=== PATIENT | female | born 1945 | race Caucasian/White ===

== ENCOUNTER → 2017-08-31 | Outpatient (CLI) | payer OTHER ==
[~2017-08-31] MED LIST: ANEXSIA 7.5/321 EACH; CLONIDINE HCL0.1 MG PO; Calcium Carbonate PO; Divalproex Sodium PO; LOPRESSOR25 MG PO; LOSARTAN POTAS100 MG PO; METOPROLOL TAR100 MG PO; PEPCID20 MG PO; PLAVIX75 MG PO; RISPERDAL0.5 MG PO; SENOKOT8.6 MG PO; TEMAZEPAM15 MG PO; TYLENOL WITH C1 EACH PO; Z.0.AMBIEN5 MG; Z.0.METOPROLOL TAR10 PO; Z.0.SOMA350 MG
== END ==
LOC: NPA 13:00
PROVIDERS: ATTEND Internal Medicine
DX: R69 Illness, unspecified (principal)

== ENCOUNTER 2017-09-25 09:34 | Emergency (ER) | payer MEDICARE ==
[~2017-09-25] VITALS: Ht 170.2 cm; Wt 90.7 kg
--- NOTE | 2017-09-25 11:15 | Diagnostic Imaging Report ---
PROCEDURE: X-RAY CHEST, TWO VIEWS COMPARISON: Patients [facility], DX, CHEST 2 VIEWS, 07/18/2017, 8:20. INDICATIONS: CHEST PAIN FINDINGS: LUNGS: No consolidations or edema. PLEURA: No effusions or pneumothorax. HEART \T\ MEDIASTINUM: The heart is within normal size-limits. Ascending thoracic aortic aneurysm appears enlarged compared to the prior chest radiograph now measuring 6.64 cm (1 cm larger). BONES \T\ SOFT TISSUES: No acute findings. CONCLUSION: Enlargement of the thoracic aortic aneurysm. Ricky Dove D.O. Dictated by: Rciky Dove D.O. on 09/25/2017 at 11:24 Electronically approved by: Ricky Dove D.O. on 09/25/2017 at 11:24
[2017-09-25] MEDS ORDERED: ONDANSETRON HCL INJ 2 MG/ML VIAL IV STA ×2 (12:41→12:43)
[2017-09-25] MEDS ORDERED: MORPHINE SULFATE 4 MG/ML SYR IV PRN (12:45)
[2017-09-25 12:51] LABS: BASOPHILS # (AUTO) 0.1 (0.0-0.1); BASOPHILS % 0.9 % (0.0-1.0); EOSINOPHILS # (AUTO) 0.2 (0.0-0.4); HEMATOCRIT 37.3 % (34.2-44.1); HEMOGLOBIN 11.9 g/dL (12.0-16.0); LYMPHOCYTES # (AUTO) 2.2 (1.0-3.2); LYMPHOCYTES % 28.6 % (18.0-39.1); MEAN CORPUSCULAR HEMOGLOBIN 31.2 pg (28-32); MEAN CORPUSCULAR HGB CONC 31.9 g/dL (31-35); MEAN CORPUSCULAR VOLUME 97.6 fL (81-99); MONOCYTES # (AUTO) 0.7 (0.2-0.8); MONOCYTES % 9.5 % (4.4-11.3); NEUTROPHILS # (AUTO) 4.5 (2.1-6.9); NEUTROPHILS % 58.7 % (38.7-80.0); PLATELET COUNT 310 x10e3/uL (140-360); RED BLOOD COUNT 3.82 x10e6/uL (3.6-5.1); RED CELL DISTRIBUTION WIDTH 15.2 % (11.7-14.4)
[2017-09-25 13:06] LABS: INR 1.02; PROTHROMBIN TIME 13.9 seconds (11.9-14.5)
[2017-09-25 13:07] LABS: PARTIAL THROMBOPLASTIN TIME 42.3 seconds (23.8-35.5)
[2017-09-25 13:13] LABS: ALBUMIN 3.4 g/dL (3.5-5.0); ALBUMIN/GLOBULIN RATIO 0.7 (0.8-2.0); ANION GAP 16.7 mmol/L (8-16); CALCIUM 9.5 mg/dL (8.4-10.2); CREATININE, SERUM 1.12 mg/dL (0.57-1.11); POTASSIUM 3.7 mmol/L (3.5-5.1)
[2017-09-25 13:19] LABS: CREATINE KINASE MB 0.6 ng/mL (0.00-5.00); TROPONIN I 0.046 ng/mL (0-0.300)
--- NOTE | 2017-09-25 15:01 | Diagnostic Imaging Report ---
EXAM: CT Chest, Abdomen and Pelvis WITHOUT contrast INDICATION: Chest and back pain. Thoracic aortic dissection and prior scan. COMPARISON: CT chest dated July 12, 2017, and CT abdomen dated 01/18/2015. TECHNIQUE: Chest, abdomen and pelvis were scanned utilizing a multidetector helical scanner from the lung apex to the pubic symphysis without administration of IV contrast. Absence of intravenous contrast decreases sensitivity for detection of focal lesions and vascular pathology. Coronal and sagittal reformations were obtained. Routine protocol was performed. IV CONTRAST: None. ORAL CONTRAST: Water RADIATION DOSE: Total DLP: 779.48 mGy*cm Estimated effective dose: (DLP x 0.015 x size factor) mSv COMPLICATIONS: None FINDINGS: LINES and TUBES: None. LUNGS AND AIRWAYS: Biapical pleural-parenchymal scarring. Bibasilar pleural-parenchymal scarring and/or subsegmental atelectasis. No focal consolidation. Airways are normal. PLEURA: The pleural spaces are clear. HEART AND MEDIASTINUM: Evaluation limited due to the lack of contrast. Atherosclerotic calcifications of the entire thoracic aorta. Redemonstration of fusiform aneurysmal dilatation of the aortic arch measuring up to 5.5 cm in maximal dimension on image 19 series 2, previously 5.3 cm at a similar level. Previously described intramural hematoma not well evaluated due to the lack of contrast, however, less distinct than on prior examination with improvement of periaortic fat stranding. There is also fusiform aneurysmal dilatation of the descending thoracic aorta diffusely, measuring up to 4.7 x 4.6 cm on image 37 series 2. Multivessel coronary artery calcifications. There is no pericardial effusion. HEPATOBILIARY: No focal hepatic lesions. Intra and extrahepatic biliary dilatation suggestive of reservoir effect. GALLBLADDER: Status post cholecystectomy. SPLEEN: No splenomegaly. PANCREAS: No focal masses or ductal dilatation. ADRENALS: No adrenal nodules KIDNEYS/URETERS: No hydronephrosis. 2.9 cm cyst in the posterior interpolar region of the left kidney on image 65 series 2. No stones. GI TRACT: No abnormal distention, wall thickening, or evidence of bowel obstruction. Colonic diverticulosis without diverticulitis. Appendix is normal. PELVIC ORGANS/BLADDER: Unremarkable. LYMPH NODES: No lymphadenopathy. VESSELS: Tortuous abdominal aorta, with fusiform dilatation of the juxtarenal aorta measuring up to 3.7 cm on image 74 series 2. Mild anterior wedge compression deformity of L1. PERITONEUM / RETROPERITONEUM: No free air or fluid. BONES: Postsurgical changes of decompressive laminectomy from L2 through S1 again observed. Again observed. SOFT TISSUES: Unremarkable. IMPRESSION: 1. Mild interval increase in fusiform aneurysmal dilatation of the aortic arch and descending thoracic aorta, with intramural hematoma/dissection in the aortic arch is not well evaluated due to the lack of contrast. 2. Unchanged tortuous abdominal aorta with mild fusiform dilatation. 3. Colonic diverticulosis without acute diverticulitis. Signed by: Dr. Josey Huertas M.D. on 09/25/2017 2:57 PM
[2017-09-25] MEDS ORDERED: KETOROLAC TROMETHAMINE 30 MG/ML VIAL IV STA (19:05)
[2017-09-25] MEDS ORDERED: MORPHINE SULFATE 4 MG/ML SYR IV ONE (19:30)
== END 2017-09-25 22:35 | disposition home or self-care (01) ==
LOC: ER 09:41
DX: M54.5 Low back pain (principal); S39.012A Strain of muscle, fascia and tendon of lower back, initial encounter; G89.29 Other chronic pain; I10 Essential (primary) hypertension; E11.9 Type 2 diabetes mellitus without complications; I25.10 Atherosclerotic heart disease of native coronary artery without angina pectoris
CPT/HCPCS: 36415; 71020; 71250; 74150; 80053; 82550; 82553; 83880; 84484; 85025; 85610; 85730; 86850; 86900; 93005; 96374; 96375; 99284; J1885; J2270; J2405

== ENCOUNTER 2018-03-22 12:57 | Inpatient (IN) | payer MEDICARE, BC ==
[~2018-03-22] VITALS: Ht 170.2 cm; Wt 90.7 kg
[2018-03-22] MEDS ORDERED: SODIUM CHLORIDE 0.9% 500ML 500 ML IV STA (13:23)
[2018-03-22] MEDS ORDERED: LEVOFLOXACIN 750MG/D5W 150ML 150 ML IV ONE (13:30)
[2018-03-22] MEDS ORDERED: ALBUTEROL/IPRATROPIUM 3 ML NEB NEB ONE (13:30)
[2018-03-22] MEDS ORDERED: ACETAMINOPHEN 325 MG TAB PO PRN ×2 (13:30→14:45)
[2018-03-22] MEDS ORDERED: METHYLPREDNISOLONE SOD SUCC 125 MG/2ML VIAL IV ONE (13:30)
[2018-03-22] MEDS ORDERED: FAMOTIDINE 20 MG/2 ML VIAL IV ONE (13:30)
[2018-03-22] MEDS ORDERED: IBUPROFEN 400 MG TAB PO PRN (13:30)
[2018-03-22] MEDS ORDERED: ONDANSETRON HCL INJ 2 MG/ML VIAL IV PRN ×4 (13:30→17:15)
[2018-03-22 13:55] LABS: BASOPHILS # (AUTO) 0.1 (0.0-0.1); BASOPHILS % 1.1 % (0.0-1.0); EOSINOPHILS # (AUTO) 0.2 (0.0-0.4); EOSINOPHILS % 1.7 % (0.0-6.0); HEMATOCRIT 34.4 % (34.2-44.1); HEMOGLOBIN 11.5 g/dL (12.0-16.0); LYMPHOCYTES # (AUTO) 1.5 (1.0-3.2); MEAN CORPUSCULAR HEMOGLOBIN 31.3 pg (28-32); MEAN CORPUSCULAR HGB CONC 33.4 g/dL (31-35); MEAN CORPUSCULAR VOLUME 93.7 fL (81-99); MONOCYTES # (AUTO) 0.8 (0.2-0.8); MONOCYTES % 7.6 % (4.4-11.3); NEUTROPHILS # (AUTO) 7.4 (2.1-6.9); NEUTROPHILS % 74.3 % (38.7-80.0); PLATELET COUNT 214 x10e3/uL (140-360); RED BLOOD COUNT 3.67 x10e6/uL (3.6-5.1)
[2018-03-22] MEDS ORDERED: ENALAPRILAT IV INJ 1.25 MG/ML VIAL IV ONE (14:00)
--- NOTE | 2018-03-22 14:03 | Diagnostic Imaging Report ---
EXAMINATION: CHEST SINGLE (PORTABLE) INDICATION: Shortness of breath. Concern for pneumonia. COMPARISON: None FINDINGS: TUBES and LINES: None. LUNGS: Left lung base suggestive of subsegmental atelectasis. There is no evidence of pneumonia or pulmonary edema. PLEURA: No pleural effusion or pneumothorax. HEART AND MEDIASTINUM: The cardiac silhouette is mildly enlarged. The thoracic aorta is tortuous and diffusely dilated. BONES AND SOFT TISSUES: No acute osseous lesion. UPPER ABDOMEN: No free air under the diaphragm. IMPRESSION: 1. Patchy density in the left lung base suggestive of atelectasis. However, developing pneumonia is not excluded in the proper clinical setting.. Suggest chest PA and lateral views when patient's condition permits. 2. Diffusely aneurysmal dilated thoracic aorta better evaluated on prior CT examinations. Signed by: Dr. Josey Huertas M.D. on 03/22/2018 1:59 PM
[2018-03-22 14:18] LABS: ALBUMIN 3.4 g/dL (3.5-5.0); ALBUMIN/GLOBULIN RATIO 0.9 (0.8-2.0); ALKALINE PHOSPHATASE 76 IU/L (40-150); ANION GAP 15.9 mmol/L (8-16); BLOOD UREA NITROGEN 10 mg/dL (7-26); BUN/CREATININE RATIO 11 (6-25); CARBON DIOXIDE 19 mmol/L (22-29); CHLORIDE 104 mmol/L (98-107); CREATINE KINASE 56 IU/L (29-168); CREATININE, SERUM 0.87 mg/dL (0.57-1.11); EST GLOMERULAR FILTRATION RATE > 60 ML/MIN (60-); GLUCOSE 107 mg/dL (74-118); MAGNESIUM 1.7 MG/DL (1.3-2.1); POTASSIUM 3.9 mmol/L (3.5-5.1); SODIUM 135 mmol/L (136-145)
[2018-03-22 14:21] LABS: ALANINE AMINOTRANSFERASE < 6 IU/L (0-55)
[2018-03-22] MEDS ORDERED: CLONIDINE HCL 0.1 MG TAB PO PRN (14:45)
[2018-03-22] MEDS ORDERED: ENALAPRILAT IV INJ 1.25 MG/ML VIAL IV PRN (14:45)
[2018-03-22] MEDS ORDERED: ONDANSETRON HCL 4 MG ORAL DISINTEGRATING TAB PO PRN (14:45)
[2018-03-22] MEDS ORDERED: DIPHENHYDRAMINE HCL 25 MG CAP PO PRN (14:45)
[2018-03-22] MEDS: HYDROCODONE/APAP 7.5MG-325MG 1 EA TAB PO PRN ×2 (15:20→22:10)
[2018-03-22] MEDS ORDERED: ACETAMINOPHEN/CODEINE 300MG - 30MG TAB PO PRN (15:45)
[2018-03-22] MEDS: HYDROMORPHONE 2MG/ML 2 MG/ML ML IV PRN ×2 (15:56→21:18)
[2018-03-22 16:45] VITALS: BP 165/87
[2018-03-22] MEDS: FUROSEMIDE INJ 10 MG/ML 4 ML VIAL IV SCH (17:00)
[2018-03-22] MEDS: CARVEDILOL 3.125 MG TAB PO SCH (17:00)
[2018-03-22] MEDS ORDERED: PROMETHAZINE 25MG/ NS 50ML (IV) IV PRN (17:15)
[2018-03-22 17:42] VITALS: BP 165/87
[2018-03-22] MEDS: ALBUTEROL/IPRATROPIUM 3 ML NEB NEB SCH (19:00)
[2018-03-22 20:00] VITALS: BP 124/83
[2018-03-22] MEDS: BENZONATATE 100 MG CAP PO SCH (21:15)
[2018-03-22 21:28] VITALS: BP 124/83
[2018-03-22] MEDS: ONDANSETRON HCL INJ 2 MG/ML VIAL IV PRN (22:00)
--- NOTE | 2018-03-22 23:09 | Diagnostic Imaging Report ---
EXAM: ABDOMEN-1VIEW (KUB) DATE: 03/22/2018 9:06 PM Time stamp on exam: 2202 hours INDICATION: Nausea. COMPARISON: None FINDINGS: LINES/TUBES: None BOWEL PATTERN: No evidence for obstruction. SOFT TISSUES: Right upper quadrant cholecystectomy clips. Extensive atherosclerotic calcifications of the abdominal aorta and branches. LUNG BASES: Not included BONES: Extensive degenerative changes and postsurgical fusion status post laminectomy at L4 and L5 IMPRESSION: Nonobstructive bowel gas pattern. Signed by: Dr. Luis Bay M.D. on 03/22/2018 11:06 PM
[2018-03-22] MEDS ORDERED: DEXTROSE 5%/0.9% SOD CHL 1,000 ML IV ONE (23:30)
[2018-03-22 23:31] LABS: AMYLASE 71 U/L (25-125); LIPASE 6 U/L (8-78)
[2018-03-23] VITALS (7 sets, daily range): BP systolic 112–145; BP diastolic 63–90
[2018-03-23] LABS: CREATINE KINASE MB 1.7 ng/mL (0-5.0)
[2018-03-23] MEDS: ALBUTEROL/IPRATROPIUM 3 ML NEB NEB SCH ×4 (00:37→18:42)
--- NOTE | 2018-03-23 02:24 | Diagnostic Imaging Report ---
EXAMINATION: CHEST XRAY LINE PLACEMENT INDICATION: Shortness of breath. Concern for pneumonia. COMPARISON: 09/25/2017 FINDINGS: TUBES and LINES: Right upper extremity PICC line with tip at the level of the atrial caval junction. LUNGS: Left lung base suggestive of subsegmental atelectasis. There is mild prominence of the central pulmonary vasculature, consistent with pulmonary venous congestion. PLEURA: No pleural effusion or pneumothorax. HEART AND MEDIASTINUM: Cardiac size is moderately enlarged. The aortic arch is severely enlarged in keeping with known ectasia/aneurysm of the aorta BONES AND SOFT TISSUES: No acute osseous lesion. UPPER ABDOMEN: No free air under the diaphragm. IMPRESSION: 1. Patchy density in the left lung base suggestive of atelectasis. However, developing pneumonia is not excluded in the proper clinical setting. 2. Diffusely dilated thoracic aorta better evaluated on prior CT examinations. Signed by: Dr. Luis Bay M.D. on 03/23/2018 2:21 AM
[2018-03-23 05:26] LABS: BASOPHILS % 0.3 % (0.0-1.0); HEMATOCRIT 36.1 % (34.2-44.1); HEMOGLOBIN 11.3 g/dL (12.0-16.0); LYMPHOCYTES # (AUTO) 0.7 (1.0-3.2); LYMPHOCYTES % 9.9 % (18.0-39.1); MEAN CORPUSCULAR HEMOGLOBIN 30.5 pg (28-32); MEAN CORPUSCULAR HGB CONC 31.3 g/dL (31-35); MEAN CORPUSCULAR VOLUME 97.3 fL (81-99); MONOCYTES # (AUTO) 0.2 (0.2-0.8); MONOCYTES % 2.3 % (4.4-11.3); NEUTROPHILS # (AUTO) 6.5 (2.1-6.9); NEUTROPHILS % 86.8 % (38.7-80.0); PLATELET COUNT 220 x10e3/uL (140-360); RED BLOOD COUNT 3.71 x10e6/uL (3.6-5.1); RED CELL DISTRIBUTION WIDTH 14.9 % (11.7-14.4)
[2018-03-23] MEDS: HYDROMORPHONE 2MG/ML 2 MG/ML ML IV PRN ×3 (05:37→17:39)
[2018-03-23 06:04] LABS: CREATINE KINASE MB 1.7 ng/mL (0-5.0)
[2018-03-23 06:34] LABS: ANION GAP 14.5 mmol/L (8-16); CALCIUM 9.2 mg/dL (8.4-10.2); CREATININE, SERUM 1.09 mg/dL (0.57-1.11); POTASSIUM 4.5 mmol/L (3.5-5.1)
[2018-03-23] MEDS: BENZONATATE 100 MG CAP PO SCH ×3 (08:42→20:24)
[2018-03-23] MEDS: HYDROCODONE/APAP 7.5MG-325MG 1 EA TAB PO PRN (08:42)
[2018-03-23] MEDS: FUROSEMIDE INJ 10 MG/ML 4 ML VIAL IV SCH ×2 (08:42→16:23)
[2018-03-23] MEDS: CARVEDILOL 3.125 MG TAB PO SCH ×2 (08:42→16:23)
[2018-03-23] MEDS: LEVOFLOXACIN 500MG/D5W 100ML 100 ML IV SCH (15:35)
--- NOTE | 2018-03-23 17:57 | Diagnostic Imaging Report ---
Ventilation/perfusion lung scan Clinical Information: 72 F with CHF, pneumonia and SOB. Comparison: Chest radiograph 03/23/2018 Discussion: Xenon-133 gas 12 mCi was administered via inhalation. Dynamic images of the lungs in the posterior projection were obtained through single breath, equilibrium, and washout phases. Distribution of tracer activity is very irregular throughout the lungs with decreased tracer in the left lung base. Compressive effect is seen along the medial aspect of the left lung. Washout of tracer is diffusely delayed with diffuse air trapping throughout both lungs. Perfusion images of the lungs were obtained in multiple projections following intravenous administration of 6.5 mCi of Tc-99m MAA. Distribution of tracer is very irregular throughout the lungs. A large size perfusion defect is seen in the lateral segment of the right lung base. Tracer is decreased in the left lung base but there is tracer activity along the entire basal pleura. Compressive effect is seen along the left caitlin medially. The cardiomediastinal silhouette is enlarged. Impression: 1. Scan findings represent an INTERMEDIATE probability for acute pulmonary embolic disease based on the PIOPED II criteria. This probability is assigned based on a large unmatched perfusion defect in the lateral basal segment of the right lung. 2. Suspect parenchymal lung disease in the left lung base given clearly defined stripe sign along the basal pleura. This constitutes a triple-matched defect when combined with today's chest radiograph rendering an INTERMEDIATE probability of PE in the left lung base. 3. Scan evidence of severe obstructive lung disease. 4. Enlarged cardiac silhouette. The compressive effect along the medial aspect of the left lung is related to the patient's known ectatic thoracic aortic aneurysm. 5. Results were called to Dr. Carver at 5:50 pm on 03/23/2018. Signed by: Dr. Nhi Quinones M.D. on 03/23/2018 5:54 PM
[2018-03-23] MEDS ORDERED: PANTOPRAZOLE 40 MG 10ML VIAL IV SCH (18:45)
[2018-03-23 19:29] LABS: INR 1.15; PROTHROMBIN TIME 13.8 seconds (11.9-14.5)
[2018-03-23 19:30] LABS: PARTIAL THROMBOPLASTIN TIME 38.5 seconds (23.8-35.5)
[2018-03-23] MEDS ORDERED: HYDROMORPHONE 2MG/ML 2 MG/ML ML IV PRN (19:30)
[2018-03-23] MEDS: ZOLPIDEM TARTRATE 5 MG TAB PO PRN (21:43)
[2018-03-24] VITALS (7 sets, daily range): BP systolic 102–145; BP diastolic 60–81
[2018-03-24] MEDS: ALBUTEROL/IPRATROPIUM 3 ML NEB NEB SCH ×5 (02:12→19:20)
[2018-03-24] MEDS: PANTOPRAZOLE 40 MG 10ML VIAL IV SCH ×3 (02:25→20:27)
[2018-03-24 06:11] LABS: BASOPHILS # (AUTO) 0.1 (0.0-0.1); BASOPHILS % 0.7 % (0.0-1.0); EOSINOPHILS # (AUTO) 0.3 (0.0-0.4); EOSINOPHILS % 3.7 % (0.0-6.0); HEMATOCRIT 30.7 % (34.2-44.1); HEMOGLOBIN 9.9 g/dL (12.0-16.0); LYMPHOCYTES # (AUTO) 2.1 (1.0-3.2); LYMPHOCYTES % 29.1 % (18.0-39.1); MEAN CORPUSCULAR HEMOGLOBIN 31.2 pg (28-32); MEAN CORPUSCULAR HGB CONC 32.2 g/dL (31-35); MEAN CORPUSCULAR VOLUME 96.8 fL (81-99); MONOCYTES # (AUTO) 0.8 (0.2-0.8); MONOCYTES % 10.9 % (4.4-11.3); NEUTROPHILS % 55.2 % (38.7-80.0); PLATELET COUNT 199 x10e3/uL (140-360); RED BLOOD COUNT 3.17 x10e6/uL (3.6-5.1); RED CELL DISTRIBUTION WIDTH 14.7 % (11.7-14.4)
[2018-03-24 06:26] LABS: ANION GAP 10.7 mmol/L (8-16); CALCIUM 8.6 mg/dL (8.4-10.2); CREATININE, SERUM 1.22 mg/dL (0.57-1.11); POTASSIUM 3.7 mmol/L (3.5-5.1)
[2018-03-24] MEDS: CARVEDILOL 3.125 MG TAB PO SCH ×2 (07:58→18:03)
[2018-03-24] MEDS: FUROSEMIDE INJ 10 MG/ML 4 ML VIAL IV SCH ×2 (07:58→18:03)
[2018-03-24] MEDS: BENZONATATE 100 MG CAP PO SCH ×3 (07:59→20:27)
[2018-03-24] MEDS: HYDROCODONE/APAP 7.5MG-325MG 1 EA TAB PO PRN ×3 (08:01→22:30)
[2018-03-24] MEDS ORDERED: SODIUM CHLORIDE 0.9% 250ML 250 ML ONE (10:33)
[2018-03-24] MEDS: NICOTINE 7 MG PATCH TOP SCH (10:45)
[2018-03-24] MEDS: ENOXAPARIN SOD INJ 40 MG/0.4 ML SYR SC SCH (10:45)
[2018-03-24] MEDS: VANCOMYCIN 1GM/NS 250 ML 250 ML IV SCH ×2 (11:37→21:31)
[2018-03-24] MEDS: HYDROMORPHONE 1MG/1ML INJ IV PRN (11:37)
[2018-03-24] MEDS: LEVOFLOXACIN 500MG/D5W 100ML 100 ML IV SCH (15:53)
--- NOTE | 2018-03-24 19:12 | Diagnostic Imaging Report ---
PROCEDURE: CT CHEST WITHOUT CONTRAST CT scan of the chest WITHOUT intravenous contrast, using standard protocol. TECHNIQUE: The chest was scanned utilizing a multidetector helical scanner from the apex to the level of the adrenal glands. No IV contrast was administered per physician's request. Coronal and sagittal multiplanar reformations were obtained. COMPARISON: Patients [facility], CT, CT CHEST WO, 09/25/2017, 13:56. INDICATIONS: PNEUMONIA FINDINGS: Lines/tubes: Right-sided PICC line with distal tip in the mid SVC.. Lungs and Airways: Atelectatic changes in the posterior right lower lobe (series 3, image 97) and in the posteromedial left lower lobe adjacent to thoracic aneurysm (for example series 3, image 88). No focal consolidation or pulmonary nodules. Subpleural linear density in the anterior right middle lobe (series 3, image 82, and sagittal image 48), likely representing confluent scarring, or focal atelectasis. Airways are clear, without endobronchial lesions. Pleura: Trace left pleural effusion (series 2, image 100). Heart and mediastinum: Thyroid is unremarkable. Stable mild cardiomegaly. Atherosclerotic calcification of the coronary arteries and thoracic aorta. Fusiform aneurysmal dilation of the aortic arch is again seen, which measures 5.3 cm in maximal dimension (series 2, image 40). Fusiform aneurysmal dilation of the descending aorta is also noted which measures approximately 4.4 x 4.4 cm (series 2 image 71). Difficult to assess for intramural hematoma or dissection given the lack of intravenous contrast. No periaortic hyperdensity to suggest acute bleeding. Trace pericardial effusion. Lymph nodes: No mediastinal or axillary adenopathy. Difficult to assess for hilar adenopathy given the lack of intravenous contrast. Abdomen: Limited views of the upper abdomen show no abnormality within the visualized liver, spleen, pancreas, or kidneys. The adrenal glands are unremarkable. Bones: Generalized osteopenia. No aggressive lytic lesion. IMPRESSION: 1. atelectatic changes in the posterior right lower lobe and posteromedial left lower lobe. Trace left pleural effusion. No focal consolidation. 2. Fusiform aneurysmal dilation of the aortic arch and descending thoracic aorta which is stable when compared to prior exam. Intramural hematoma or dissection cannot be assessed given the lack of intravenous contrast. No surrounding hyperdensity to suggest acute periaortic hematoma Alvaro Katz M.D. Dictated by: Alvaro Katz M.D. on 03/24/2018 at 19:17 Electronically approved by: Alvaro Katz M.D. on 03/24/2018 at 19:17
[2018-03-24] MEDS: ZOLPIDEM TARTRATE 5 MG TAB PO PRN (20:27)
[2018-03-25] VITALS: BP 151/90
[2018-03-25] MEDS: ALBUTEROL/IPRATROPIUM 3 ML NEB NEB SCH ×4 (00:30→19:15)
[2018-03-25 04:00] VITALS: BP 128/98
[2018-03-25 04:29] LABS: BASOPHILS # (AUTO) 0.1 (0.0-0.1); BASOPHILS % 0.8 % (0.0-1.0); EOSINOPHILS # (AUTO) 0.6 (0.0-0.4); EOSINOPHILS % 7.3 % (0.0-6.0); HEMOGLOBIN 11.1 g/dL (12.0-16.0); LYMPHOCYTES # (AUTO) 2.2 (1.0-3.2); LYMPHOCYTES % 27.8 % (18.0-39.1); MEAN CORPUSCULAR HGB CONC 32.6 g/dL (31-35); MONOCYTES # (AUTO) 0.8 (0.2-0.8); NEUTROPHILS # (AUTO) 4.2 (2.1-6.9); PLATELET COUNT 237 x10e3/uL (140-360); RED BLOOD COUNT 3.58 x10e6/uL (3.6-5.1); RED CELL DISTRIBUTION WIDTH 14.7 % (11.7-14.4)
[2018-03-25 04:52] LABS: ANION GAP 13.7 mmol/L (8-16); CALCIUM 9.4 mg/dL (8.4-10.2); CREATININE, SERUM 1.25 mg/dL (0.57-1.11); POTASSIUM 3.7 mmol/L (3.5-5.1)
[2018-03-25] MEDS: HYDROMORPHONE 1MG/1ML INJ IV PRN ×3 (06:15→21:22)
[2018-03-25] MEDS: ONDANSETRON HCL INJ 2 MG/ML VIAL IV PRN ×2 (06:15→12:39)
[2018-03-25 08:00] VITALS: BP 124/71
[2018-03-25] MEDS: CARVEDILOL 3.125 MG TAB PO SCH ×2 (08:00→17:10)
[2018-03-25] MEDS: PANTOPRAZOLE 40 MG 10ML VIAL IV SCH ×2 (08:20→21:21)
[2018-03-25] MEDS: FUROSEMIDE INJ 10 MG/ML 4 ML VIAL IV SCH (09:00)
[2018-03-25] MEDS: BENZONATATE 100 MG CAP PO SCH ×3 (09:00→21:21)
[2018-03-25] MEDS ORDERED: NITROGLYCERIN 0.1MG/HR PATCH TOP SCH (09:00)
[2018-03-25] MEDS: NICOTINE 7 MG PATCH TOP SCH (09:00)
[2018-03-25] MEDS: VANCOMYCIN 1GM/NS 250 ML 250 ML IV SCH (09:21)
[2018-03-25 10:02] VITALS: BP 124/71
[2018-03-25] MEDS: ENOXAPARIN SOD INJ 40 MG/0.4 ML SYR SC SCH (11:30)
--- NOTE | 2018-03-25 13:55 | Operative Report ---
DATE OF PROCEDURE: March 25, 2018 REFERRING PHYSICIAN: Dr. Lan Solorio. PROCEDURE PERFORMED: Esophagogastroduodenoscopy with biopsies. INDICATIONS FOR ESOPHAGOGASTRODUODENOSCOPY: Recurrent nausea and vomiting. MEDICATION: Patient was done under MAC. Please see anesthesiologist's note. PROCEDURE: With the patient in the left lateral decubitus position, the flexible fiberoptic Olympus gastroscope was introduced into the esophagus under direct visualization without any difficulty. There was some patchy erythema noted in the distal esophagus. A minute nodule was noted at the GE junction, and that was biopsied. The scope was then advanced with ease into the stomach, traversing a small sliding hiatal hernia. The mucosa overlying the antrum and the body revealed some patchy erythema and mild to moderate edema, and biopsies were obtained and sent to stain for H. pylori. An approximately 8 mm ulcer was noted in the pyloric channel without active bleeding or stigmata of recent hemorrhage. The scope was then advanced with ease all the way to the 2nd portion of the duodenum. There was some patchy submucosal nodularity noted in the 2nd portion, and biopsies were obtained. The scope was then withdrawn back into the stomach and retroflexed, and the mucosa overlying the fundus and the cardia grossly appeared to be within normal limits. There was some extrinsic compression noted in the fundus, but patient has had a CT of the abdomen in the recent past that revealed no pathology basically in that area. The scope was then straightened out. The stomach was decompressed. The scope was subsequently withdrawn. Patient tolerated procedure well. IMPRESSION: 1. Distal esophagitis, mild. 2. Minute nodule gastroesophageal junction biopsied. 3. Small sliding hiatal hernia. 4. Gastritis biopsied. Biopsies sent to stain for H. pylori. 5. Pyloric channel ulcer without active bleeding or stigmata of recent hemorrhage. 6. Patchy nodularity 2nd portion of duodenum biopsied. PLAN: Follow up histology. Continue PPI therapy. Job#: [id number] EV cc:LAN SOLORIO MD
--- NOTE | 2018-03-25 14:03 | Consultation ---
DATE OF CONSULTATION: March 24, 2018 CARDIOLOGY CONSULTATION REASON FOR CONSULTATION: Congestive heart failure and aortic aneurysm. CHIEF COMPLAINT: My ankle is broken and I keep telling everybody and nobody wants to help me. HISTORY OF PRESENT ILLNESS: Patient is a 72-year-old female who presented with shortness of breath and found to have MRSA healthcare-associated pneumonia as well as heart failure, and she is currently being treated for these medical conditions. Patient has what seems to be vascular dementia, and she herself is very confused and tangential despite long efforts to obtain her history with her. It was very difficult because she kept trying to talk about her bad ankle as well as bad hearing and bad neck and did not want to focus on her cardiovascular history. She did mention that she has been told in the past many years ago by a manager culture that she had heart failure and she has a weak heart and this is not news to her. She currently denies any chest pain, shortness of breath. She does complain about coughing for the last several weeks. PAST MEDICAL HISTORY: 1. Congestive heart failure. 2. Aortic aneurysm. 3. Hypertension. 4. Hyperlipidemia. 5. Vascular dementia. 6. Left ankle pain. 7. Chronic back and neck pain. 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 Denies any current smoking, alcohol or drug use. FAMILY HISTORY: Patient denies any family history of early coronary artery disease. PHYSICAL EXAMINATION: VITALS: Temperature 98.5, heart rate 79, respiratory rate 18, blood pressure 133/81, satting 96% on three liters 92. GENERAL: A thin elderly white female. CARDIOVASCULAR: Has a diffuse laterally displaced PMI. Regular S1 and S2. No murmur, rubs or gallops. Normal carotid pulses, palpable femoral pulses, palpable pedal pulses. Has mild peripheral edema around the ankles and some small varicosities bilateral lower extremities. RESPIRATORY: No respiratory distress. Diminished breath sounds left lower lobe. ABDOMEN: Soft, nontender. No masses, no hepatosplenomegaly. NEURO AND PSYCH: Patient is alert and oriented to person and place but not time. Has a very tangential affect. MEDICATIONS: All the medications were reviewed. LABORATORY DATA: All lab data reviewed. IMAGING: All imaging data reviewed. I reviewed the CT scan done in September of 2017. It showed a thoracic aneurysm measuring 5.5 cm, increased from 5.3 cm from the study prior. ECHOCARDIOGRAM: I reviewed her echocardiogram. It shows severely depressed LV systolic function with ejection fraction of approximately 25% with wall motion abnormalities in both the LAD and RCA distributions. No significant valvular abnormalities noted. Normal RV size and function. Aortic root was noted to be normal size on the echocardiogram. ASSESSMENT: 1. Ischemic cardiomyopathy with ejection fraction of 25% to 30%. 2. Acute on chronic systolic and diastolic heart failure. 3. Thoracic aortic aneurysm measuring 5.5 cm. 4. Hypertension, 5. Hyperlipidemia. 6. Peripheral arterial disease. 7. Coronary artery disease. PLAN: Patient is very noncompliant and has very poor understanding of her medical condition. She tends to perseverate on unrelated medical problems and trying to discuss her medical condition. Currently she is well compensated from a heart failure standpoint. Recommend continuing her current diuretic regimen. No plans for ischemic evaluation as she has remained asymptomatic and would not be a good candidate. Neither is she interested in undergoing any invasive studies. Patient has also been evaluated in the past for thoracic aortic aneurysm repair. However, she has refused any invasive procedures or surgeries in the past. She is currently being treated for hospital-acquired pneumonia with sputum cultures growing Staphylococcus aureus. Agree with medical management of her chronic cardiovascular problems. Will continue to follow closely. Job#: [id number] EV
[2018-03-25] MEDS: LEVOFLOXACIN 500MG/D5W 100ML 100 ML IV SCH (15:37)
[2018-03-25] MEDS: HYDROCODONE/APAP 7.5MG-325MG 1 EA TAB PO PRN (15:48)
[2018-03-25 16:00] VITALS: BP 135/83
[2018-03-25] MEDS: FUROSEMIDE 40 MG TAB PO SCH (17:10)
[2018-03-25] MEDS ORDERED: PROPOFOL IV EMULSION 10 MG/ML 50 ML VIAL ONE (17:26)
[2018-03-25] MEDS ORDERED: LIDOCAINE HCL 2% LOCAL INJ 5 ML SDV VIAL INJ ONE (17:26)
[2018-03-25] MEDS ORDERED: MIDAZOLAM HCL 2 MG/2 ML VIAL ONE (17:48)
[2018-03-25 20:00] VITALS: BP 101/75
--- NOTE | 2018-03-25 21:03 | Progress Note ---
DATE: March 25, 2018 CARDIOLOGY PROGRESS NOTE SUBJECTIVE: No major events overnight. Patient is angry about nobody telling her about her stomach study and her not being able to find her things inside her room. Denies any chest pain or shortness of breath. Does not remember our conversation from yesterday. REVIEW OF SYSTEMS: Review of systems could not be performed as patient refused to cooperate. OBJECTIVE: VITAL SIGNS: Temperature 95.7, pulse 94, blood pressure 185/86, satting 95% on room air. GENERAL: Elderly, white female. CARDIOVASCULAR: Diffuse laterally displaced PMI. Regular S1 and S2. No murmurs, rubs or gallops. Normal carotid pulses. Palpable femoral pulses. Palpable pedal pulses. Mild peripheral edema around the ankle. Some varicosities in lower extremities. RESPIRATORY: No respiratory distress. Diminished breath sounds in left lower lobe. ABDOMEN: Soft, nontender. No masses. No hepatosplenomegaly. NEURO AND PSYCH: Alert and oriented to person and place, but not time. Very tangential affect. MEDICATIONS: All medications reviewed. LABORATORY DATA: All lab data reviewed. IMAGING DATA: All imaging data reviewed. Echocardiogram shows severely depressed LV systolic function with EF of approximately 25% with wall motion abnormalities in both LAD and RCA distributions. No significant valvular abnormalities. Normal RV size and function. Aortic root was noted to be normal. ASSESSMENT: 1. Ischemic cardiomyopathy with ejection fraction of 25% to 30%. 2. [id number] systolic and diastolic heart failure. 3. Thoracic aortic aneurysm measuring 5.5 cm. 4. Hypertension. 5. Hyperlipidemia. 6. Peripheral artery disease. 7. Coronary artery disease. 8. Pleural effusion. PLAN: The patient has poor understanding of her disease and condition due to her dementia. Overall, she seems euvolemic from heart failure standpoint and her medical regimen is reasonably optimized with furosemide 40 mg, carvedilol 3.125 b.i.d., clopidogrel 75 mg daily. She has a small PHILLIP from 1.0 to 1.25, so we will hold off on starting a low-dose RONALDO inhibitor. We will up-titrate her beta aminata as her heart rate tolerates. Thank you for this consult. Will continue to follow. Job#: [id number]
--- NOTE | 2018-03-25 21:51 | Consultation ---
DATE OF CONSULTATION: March 25, 2018 CARDIAC CONSULTATION REASON FOR THE CONSULTATION: Multiple health problems, congestive heart failure. HISTORY: Ms. Bush is a 72-year-old lady who is known with multiple medical health problems. She does have chronic pain syndrome, possible dementia, and psychosis. Cardiac-toussaint, she used to be followed by Dr. Milton (sp?) in the medical center many years ago. She had right carotid endarterectomy. She had 4 stents. She was at this institution in December 2010 with myocardial infarction. At that time, she refused any procedure. Since that time, she is maintained on medication, followed by Dr. Carver. She is known also to have COPD and shortness of breath. She came to this institution complaining of worsening shortness of breath. She is "I got congestion in my chest." Regardless, patient maintained on medication including anti-failure therapy. Her echocardiogram showed ejection fraction is at high 20s. In fact, in 2010, her ejection fraction was at almost 35%. She does have class 3 heart failure symptoms, recently progressing. She attributed everything to her bad lungs. She denied having any angina. She is weak. She had workup including CAT scan, which showed the presence of ectatic aorta and dilated ascending aorta at 5.3. The descending aorta is at 4.4 x 4.4 cm. Her V/Q scan was intermediate probability for PE. Her chest x-ray showed dilated thoracic aorta and chronic changes. Her other findings were severe degenerative joint disease of the lumbar spine. I visited the patient whom she is complaining of ache and pain all over. When we touched her left ankle, she is having pain. She is having pain all over. She is weak. She is feeling better regarding her breathing. She tolerated the EGD, which was done, which showed severe gastritis. She does have easy fatigability, shortness of breath on exertion. She denied having any angina. She does have orthopnea, paroxysmal nocturnal dyspnea, and cough. REVIEW OF SYSTEMS: Very lengthy. In fact, it took long time to get information. CARDIAC: She does have cardiac-toussaint class 3 heart failure like symptoms, progressively worsening prior to admission. She denied having any chest pain. She does have orthopnea, cough. No paroxysmal nocturnal dyspnea. Some swelling of the lower extremities. No syncope or presyncope. PULMONARY: Cough and shortness of breath and "secretion." No pleuritic chest pain. No hemoptysis. GI: Bloating, indigestion. No hematemesis. No melena. : Incontinence and increased frequency of urination. No hematuria. No dysuria. BACK: Low back pain. Status post several surgeries "as per patient" and she has chronic pain and the pain radiating to both legs. MUSCULOSKELETAL: Back pain. NEUROLOGY: Radiating low back pain to both lower extremities. No seizure activity. GENERAL: No fever, no chills. HEMATOLOGY: No easy bruising or bleeding. OTHERS: Debility and very limited activity. CURRENT MEDICATIONS: Include all the followin. Lasix 40 mg twice a day. 2. Lovenox 40 mg a day. 3. Carvedilol 3.125 mg twice a day. 4. Nitroglycerin patch. 5. Vancomycin. 6. Levaquin. 7. Albuterol. 8. Protonix. 9. Hydromorphone. 10. Clonidine. 11. Nicotine. 12. Other p.r.n. medications. ALLERGIES: IODINE. PAST MEDICAL HISTORY: 1. Coronary artery disease, status post several PCIs. 2. Chronic congestive heart failure. 3. COPD. 4. Dilated thoracic aorta and aortic arch. 5. History of acute tubular necrosis in the past. 6. History of electrolyte imbalance. 7. Repeated urinary tract infections. 8. Psychosis. 9. History of duodenal ulcer. 10. Back surgery x6. 11. Tonsillectomy. 12. Cholecystectomy. 13. Tubal ligation. 14. Right and left cataract surgery. FAMILY HISTORY: Father at age 59 with accidental fire. Mother at age 60 after 2 myocardial infarctions. Four siblings, 3 brothers and 1 sister, none with coronary artery disease. Three sons, one of them with arrhythmias. PHYSICAL EXAMINATION: VITAL SIGNS: Height of 5 feet 7 inches, weight of 200 pounds. Blood pressure 120/70, heart rate of 80, respiratory rate of 18. HEENT: Pupils are reactive. Arcus is noted. NECK: Scar of previous right carotid endarterectomy with bilateral carotid bruits. CHEST: Few crackles. HEART: PMI fifth left intercostal space. Normal first and second heart sounds. ABDOMEN: Soft with good bowel sounds. EXTREMITIES: Very tender to touch. NEUROLOGIC: Patient seems to be apprehensive, agitated. She is able to move her extremities at ease. LAB DATA: BUN 24, creatinine of 1.3, sodium of 136, potassium of 3.7. White blood cell count of 7.8, hemoglobin of 11.1, hematocrit 34%. EKG showing no acute ST-T segment elevation. Chest x-ray showing dilatation of thoracic aorta. CT scan of chest showed aortic root at 5.3, descending at 4.4 cm. V/Q scan, intermediate probability of PE. IMPRESSION AND PLAN: 1. Advanced congestive heart failure with [id number] exacerbation, systolic. 2. Chronic lung disease. 3. Hypertension. 4. Carotid arterial disease. 5. Peripheral arterial vascular disease. 6. Chronic renal insufficiency. 7. Dilated thoracic and aortic arch. 8. Debility. 9. Possible psychosis and very aggressive personality. Cardiac-toussaint, plan will be for medical therapy and very conservative approach in her care. She had already carotid Doppler read by another physician showing ejection fraction of 25% to 30%. Venous Doppler which was done, I will review because of the edema and the intermediate probability of pulmonary embolism. Patient will post major problem in her care because of her poor compliance and not her interest to have any except the simplest, cheapest medication. We discussed the case with her. We tried to explain it for her. Will follow patient's progression with you and would like to thank you for your kind referral. Job#: [id number]
[2018-03-25] MEDS: ZOLPIDEM TARTRATE 5 MG TAB PO PRN (23:18)
[2018-03-26] VITALS (8 sets, daily range): BP systolic 95–138; BP diastolic 68–96
[2018-03-26] MEDS: ALBUTEROL/IPRATROPIUM 3 ML NEB NEB SCH ×4 (00:30→19:15)
[2018-03-26] MEDS: HYDROCODONE/APAP 7.5MG-325MG 1 EA TAB PO PRN ×3 (00:45→20:35)
[2018-03-26] MEDS: FUROSEMIDE 40 MG TAB PO SCH ×2 (05:42→17:02)
[2018-03-26] MEDS: HYDROMORPHONE 1MG/1ML INJ IV PRN ×3 (05:43→18:12)
[2018-03-26 05:52] LABS: BASOPHILS # (AUTO) 0.1 (0.0-0.1); BASOPHILS % 0.8 % (0.0-1.0); EOSINOPHILS # (AUTO) 0.7 (0.0-0.4); EOSINOPHILS % 9.2 % (0.0-6.0); HEMATOCRIT 33.2 % (34.2-44.1); HEMOGLOBIN 10.8 g/dL (12.0-16.0); LYMPHOCYTES # (AUTO) 1.8 (1.0-3.2); LYMPHOCYTES % 24.8 % (18.0-39.1); MEAN CORPUSCULAR HEMOGLOBIN 30.8 pg (28-32); MEAN CORPUSCULAR HGB CONC 32.5 g/dL (31-35); MEAN CORPUSCULAR VOLUME 94.6 fL (81-99); MONOCYTES # (AUTO) 0.9 (0.2-0.8); MONOCYTES % 12.8 % (4.4-11.3); NEUTROPHILS # (AUTO) 3.8 (2.1-6.9); NEUTROPHILS % 52.1 % (38.7-80.0); PLATELET COUNT 211 x10e3/uL (140-360); RED BLOOD COUNT 3.51 x10e6/uL (3.6-5.1); RED CELL DISTRIBUTION WIDTH 14.6 % (11.7-14.4)
[2018-03-26 06:24] LABS: ALANINE AMINOTRANSFERASE < 6 IU/L (0-55); ALBUMIN 3.1 g/dL (3.5-5.0); ALBUMIN/GLOBULIN RATIO 0.9 (0.8-2.0); ALKALINE PHOSPHATASE 65 IU/L (40-150); ANION GAP 15.8 mmol/L (8-16); BLOOD UREA NITROGEN 23 mg/dL (7-26); BUN/CREATININE RATIO 19 (6-25); CALCIUM 9.3 mg/dL (8.4-10.2); CARBON DIOXIDE 28 mmol/L (22-29); CHLORIDE 96 mmol/L (98-107); CHOL/HDL RATIO 4.9 (3.0-3.6); CHOLESTEROL 188 MD/DL (0-199); CREATININE, SERUM 1.24 mg/dL (0.57-1.11); EST GLOMERULAR FILTRATION RATE 42 ML/MIN (60-); GLUCOSE 98 mg/dL (74-118); HDL CHOLESTEROL 38 MG/DL (40-60); LDL CHOLESTEROL 118 MG/DL (60-130); POTASSIUM 3.8 mmol/L (3.5-5.1); SODIUM 136 mmol/L (136-145); TRIGLYCERIDES 160 MG/DL (0-149)
[2018-03-26] MEDS ORDERED: CARVEDILOL 3.125 MG TAB PO SCH ×2 (08:00→17:00)
[2018-03-26] MEDS: VANCOMYCIN 1GM/NS 250 ML 250 ML IV SCH (08:52)
[2018-03-26] MEDS: CLOPIDOGREL BISULFATE 75 MG TAB PO SCH (08:53)
[2018-03-26] MEDS: PANTOPRAZOLE 40 MG 10ML VIAL IV SCH ×2 (08:53→20:40)
[2018-03-26] MEDS: LOSARTAN POTASSIUM 100 MG TAB PO SCH (08:53)
[2018-03-26] MEDS: BENZONATATE 100 MG CAP PO SCH ×3 (08:53→20:40)
[2018-03-26] MEDS: NICOTINE 7 MG PATCH TOP SCH (08:53)
[2018-03-26] MEDS: ONDANSETRON HCL INJ 2 MG/ML VIAL IV PRN ×2 (10:21→18:12)
[2018-03-26] MEDS: ENOXAPARIN SOD INJ 40 MG/0.4 ML SYR SC SCH (11:38)
[2018-03-26] MEDS: LEVOFLOXACIN 500MG/D5W 100ML 100 ML IV SCH (14:58)
--- NOTE | 2018-03-26 14:59 | Progress Note ---
DATE: March 26, 2018 CARDIOLOGY PROGRESS NOTE SUBJECTIVE: No major events overnight. PLEASE DELETE THIS NOTE, IT IS ENTERED IN ERROR PER DICTATOR Job#: [id number] NEIL
[2018-03-26] MEDS ORDERED: OLANZAPINE 5 MG TAB PO PRN (15:45)
[2018-03-26] MEDS: CARVEDILOL 12.5 MG TAB PO SCH (17:00)
[2018-03-26] MEDS: ATORVASTATIN 20 MG TAB PO SCH (20:40)
[2018-03-27] VITALS (8 sets, daily range): BP systolic 94–122; BP diastolic 56–84
[2018-03-27] MEDS: ALBUTEROL/IPRATROPIUM 3 ML NEB NEB SCH ×4 (00:30→19:00)
[2018-03-27] MEDS: FUROSEMIDE 40 MG TAB PO SCH (05:14)
[2018-03-27 06:19] LABS: ANION GAP 14.7 mmol/L (8-16); CALCIUM 9.2 mg/dL (8.4-10.2); CREATININE, SERUM 1.85 mg/dL (0.57-1.11); POTASSIUM 3.7 mmol/L (3.5-5.1)
--- NOTE | 2018-03-27 08:46 | Consultation ---
DATE OF CONSULTATION: March 26, 2018 PSYCHIATRIC CONSULTATION REASON FOR CONSULTATION: Evaluate the patient's psychosis. HISTORY OF PRESENT ILLNESS: The patient is a 72-year-old female admitted to the hospital for CHF and pneumonia. Psychiatric consultation is called to evaluate the patient's psychosis. As per the medical record, the patient has a history of congestive heart failure, aortic aneurysm, hypertension, hyperlipidemia, vascular dementia, ankle pain, and chronic neck and back pain. She has been found to be confused and difficult to deal with by medical staff and a poor historian. Verbally abusive towards staff and resistant to care. Upon evaluation today, the patient is subsequently in her room. She is alert, awake and oriented to self. She does not know the current year. Does not know the current president. She is irritable, suspicious, angry, and hostile. She denies depression and anxiety. She denies any helplessness or hopelessness. She denies any suicidal ideation or hallucinations. She denies any problems with sleep or appetite. The patient's thought process is loose and tangential. Does not make sense at times and incoherent at times. As per nursing staff, the patient has been resisting care, literally aggressive towards staff. She is not combative. PAST PSYCHIATRIC HISTORY: The patient denies past psychiatric history. She does have a history of dementia. She denies past suicide attempts. She denies alcohol and drug use. FAMILY HISTORY: Denied. SOCIAL HISTORY: The patient says that she lives with her son. MENTAL STATUS EXAMINATION GENERAL: The patient is an elderly female. She is alert, awake and oriented to self. Thought process is loose. Mood is angry, irritable and hostile. Affect is consistent with mood. She denies any suicidal or homicidal ideations. She denies any hallucinations. Thought content is suspicious and somewhat paranoid. Insight and judgment are limited or impaired. Memory appears to be grossly impaired. CURRENT MEDICATIONS: Benzonatate, levofloxacin, enoxaparin, hydromorphone, ondansetron, clopidogrel, losartan, nicotine, pantoprazole, vancomycin, albuterol/ipratropium, furosemide, acetaminophen/hydrocodone, Ambien p.r.n., acetaminophen/codeine, Atorvastatin, carvedilol, Benadryl. CURRENT LABS: Sodium 136, potassium 3.8, chloride 96, CO2 28, BUN 23, creatinine 1.24, AST 12, ALT less than 5. ASSESSMENT 1. Unspecified psychosis. 2. Unspecified dementia with behavioral disturbances. PLAN: Discontinue Ambien p.r.n. Add Namenda 5 mg p.o. daily. Add Zyprexa 2.5 mg p.o. q.6 h. p.r.n. Discussed with nursing staff. Thank you for this consultation. Monitor for mood and agitation. Supportive therapy. DICTATED BY JULIA SOTOMAYOR Job#: [id number] RI
[2018-03-27] MEDS: MEMANTINE 10 MG TAB PO SCH (08:50)
[2018-03-27] MEDS: PANTOPRAZOLE 40 MG 10ML VIAL IV SCH ×2 (08:50→20:33)
[2018-03-27] MEDS: CLOPIDOGREL BISULFATE 75 MG TAB PO SCH (08:50)
[2018-03-27] MEDS: BENZONATATE 100 MG CAP PO SCH ×3 (08:50→20:33)
[2018-03-27] MEDS: LOSARTAN POTASSIUM 100 MG TAB PO SCH (08:50)
[2018-03-27] MEDS: VANCOMYCIN 1GM/NS 250 ML 250 ML IV SCH (08:50)
[2018-03-27] MEDS: CARVEDILOL 12.5 MG TAB PO SCH ×2 (08:50→17:00)
[2018-03-27] MEDS: HYDROMORPHONE 1MG/1ML INJ IV PRN ×3 (08:53→18:15)
[2018-03-27] MEDS: NICOTINE 7 MG PATCH TOP SCH (10:11)
[2018-03-27] MEDS: ENOXAPARIN SOD INJ 40 MG/0.4 ML SYR SC SCH (12:58)
[2018-03-27] MEDS: HYDROCODONE/APAP 7.5MG-325MG 1 EA TAB PO PRN ×2 (15:30→21:40)
[2018-03-27] MEDS: LEVOFLOXACIN 500MG/D5W 100ML 100 ML IV SCH (15:32)
--- NOTE | 2018-03-27 17:17 | Progress Note ---
DATE: March 27, 2018 PSYCHIATRIC PROGRESS NOTE SUBJECTIVE: The patient is in the bed. She is alert, awake and oriented to self. She is confused, irritable, verbally aggressive. Thought process is still tangential. She has been taking her medications. As per the nursing staff, the patient is not combative, but verbally aggressive, irritable, uncooperative at times. She has orders to go to [facility] but has refused. The patient states that she is not having any depression or anxiety. She denies any hallucinations. She denies any suicidal ideation. She denies any problem with food or appetite. ASSESSMENT 1. Unspecified psychosis. 2. Unspecified dementia with behavioral disturbances. PLAN: Continue Ambien p.r.n. p.o. Continue Namenda 5 mg p.o. daily. Continue Zyprexa 2.5 mg p.o. q.6 h. p.r.n. Add Depakote 125 mg p.o. q.12 h. Monitor for moods and agitation. Supportive therapy. Dictated by: JULIA Oneill Job#: [id number]
[2018-03-27] MEDS: BETAMETHASONE/CLOTRIMAZOLE CR 15 GM TUBE TOP SCH (18:17)
[2018-03-27] MEDS: ATORVASTATIN 20 MG TAB PO SCH (20:33)
[2018-03-27] MEDS: DIVALPROEX SODIUM 125 MG TABDR...ER PO SCH (20:33)
[2018-03-27] MEDS ORDERED: DIVALPROEX SODIUM 250 MG TAB...DR PO SCH (21:00)
[2018-03-27] MEDS: ZOLPIDEM TARTRATE 5 MG TAB PO PRN (22:40)
[2018-03-28] VITALS (7 sets, daily range): BP systolic 108–157; BP diastolic 60–93
[2018-03-28] MEDS: ALBUTEROL/IPRATROPIUM 3 ML NEB NEB SCH ×4 (00:30→19:20)
[2018-03-28] MEDS: HYDROMORPHONE 1MG/1ML INJ IV PRN (03:19)
[2018-03-28 05:48] LABS: BASOPHILS % 0.5 % (0.0-1.0); EOSINOPHILS # (AUTO) 0.5 (0.0-0.4); EOSINOPHILS % 6.5 % (0.0-6.0); HEMATOCRIT 32.7 % (34.2-44.1); HEMOGLOBIN 10.5 g/dL (12.0-16.0); LYMPHOCYTES # (AUTO) 1.4 (1.0-3.2); LYMPHOCYTES % 17.2 % (18.0-39.1); MEAN CORPUSCULAR HEMOGLOBIN 30.6 pg (28-32); MEAN CORPUSCULAR HGB CONC 32.1 g/dL (31-35); MEAN CORPUSCULAR VOLUME 95.3 fL (81-99); MONOCYTES # (AUTO) 1.1 (0.2-0.8); MONOCYTES % 13.6 % (4.4-11.3); NEUTROPHILS % 61.7 % (38.7-80.0); PLATELET COUNT 140 x10e3/uL (140-360); RED BLOOD COUNT 3.43 x10e6/uL (3.6-5.1); RED CELL DISTRIBUTION WIDTH 14.6 % (11.7-14.4)
[2018-03-28 06:07] LABS: ALBUMIN/GLOBULIN RATIO 0.8 (0.8-2.0); ALKALINE PHOSPHATASE 62 IU/L (40-150); ANION GAP 14.8 mmol/L (8-16); BLOOD UREA NITROGEN 26 mg/dL (7-26); BUN/CREATININE RATIO 17 (6-25); CALCIUM 9.2 mg/dL (8.4-10.2); CARBON DIOXIDE 25 mmol/L (22-29); CHLORIDE 96 mmol/L (98-107); CREATININE, SERUM 1.53 mg/dL (0.57-1.11); EST GLOMERULAR FILTRATION RATE 33 ML/MIN (60-); GLUCOSE 110 mg/dL (74-118); POTASSIUM 3.8 mmol/L (3.5-5.1); SODIUM 132 mmol/L (136-145)
[2018-03-28 06:08] LABS: ALANINE AMINOTRANSFERASE < 6 IU/L (0-55)
[2018-03-28] MEDS: HYDROCODONE/APAP 7.5MG-325MG 1 EA TAB PO PRN ×4 (07:23→21:28)
[2018-03-28] MEDS: BETAMETHASONE/CLOTRIMAZOLE CR 15 GM TUBE TOP SCH ×3 (09:00→16:31)
[2018-03-28] MEDS: MEMANTINE 10 MG TAB PO SCH (09:13)
[2018-03-28] MEDS: PANTOPRAZOLE 40 MG 10ML VIAL IV SCH ×2 (09:13→20:49)
[2018-03-28] MEDS: NICOTINE 7 MG PATCH TOP SCH (09:13)
[2018-03-28] MEDS: BENZONATATE 100 MG CAP PO SCH ×3 (09:13→20:49)
[2018-03-28] MEDS: LOSARTAN POTASSIUM 100 MG TAB PO SCH (09:13)
[2018-03-28] MEDS: DIVALPROEX SODIUM 125 MG TABDR...ER PO SCH ×2 (09:13→20:49)
[2018-03-28] MEDS: CARVEDILOL 12.5 MG TAB PO SCH ×2 (09:13→16:04)
[2018-03-28] MEDS: FUROSEMIDE 40 MG TAB PO SCH (09:13)
[2018-03-28] MEDS ORDERED: ALTEPLASE RECOMBINANT 2 MG/2 ML VIAL IV PRN (11:00)
[2018-03-28] MEDS: ENOXAPARIN SOD INJ 40 MG/0.4 ML SYR SC SCH (11:31)
[2018-03-28] MEDS: VANCOMYCIN 500MG/NS 0.9% 100ML 100 ML IV SCH ×2 (13:14→23:09)
[2018-03-28] MEDS: LEVOFLOXACIN 500MG/D5W 100ML 100 ML IV SCH (16:03)
[2018-03-28] MEDS: ATORVASTATIN 20 MG TAB PO SCH (20:49)
[2018-03-29] VITALS: BP 107/73
[2018-03-29] MEDS: ZOLPIDEM TARTRATE 5 MG TAB PO PRN (00:21)
[2018-03-29] MEDS: ALBUTEROL/IPRATROPIUM 3 ML NEB NEB SCH ×3 (00:45→13:00)
[2018-03-29 04:00] VITALS: BP 118/74
[2018-03-29 07:38] VITALS: BP 155/79
[2018-03-29] MEDS: HYDROCODONE/APAP 7.5MG-325MG 1 EA TAB PO PRN (07:40)
[2018-03-29] MEDS ORDERED: DOCUSATE SODIUM 100 MG CAP PO ONE (08:00)
[2018-03-29] MEDS: CARVEDILOL 12.5 MG TAB PO SCH (08:15)
[2018-03-29] MEDS: PANTOPRAZOLE 40 MG 10ML VIAL IV SCH (08:15)
[2018-03-29] MEDS: BENZONATATE 100 MG CAP PO SCH (08:16)
[2018-03-29] MEDS: FUROSEMIDE 40 MG TAB PO SCH (08:16)
[2018-03-29] MEDS: BETAMETHASONE/CLOTRIMAZOLE CR 15 GM TUBE TOP SCH (08:16)
[2018-03-29] MEDS: LOSARTAN POTASSIUM 100 MG TAB PO SCH (08:16)
[2018-03-29] MEDS: NICOTINE 7 MG PATCH TOP SCH (08:16)
[2018-03-29] MEDS: DIVALPROEX SODIUM 125 MG TABDR...ER PO SCH (08:16)
[2018-03-29] MEDS: MEMANTINE 10 MG TAB PO SCH (08:16)
[2018-03-29] MEDS ORDERED: DOCUSATE SODIUM 100 MG CAP PO SCH (09:00)
--- NOTE | 2018-03-29 22:22 | Discharge Summary ---
The patient was admitted through the emergency room with multiple difficulties including shortness of breath and nausea and vomiting, recurrent. Database was obtained and monitored. The patient was treated for acute pulmonary infiltrate and for congestive heart failure. Course was complicated her by the patient's COPD and generalized atherosclerosis with coronary artery disease. The patient also has a history of psychosis and has had intermittent agitation while here. She was kindly followed by a psychiatrist while here. History includes chronic back pain and the patient has been on chronic analgesics which were required here including parenteral analgesics while the patient was having severe nausea and vomiting the 1st 3 days while here. She required supplemental oxygen. The patient developed acute renal insufficiency while here, this stabilized. She also required consultations as mentioned including her consultants in psychiatry, cardiology and gastroenterology. Admission hemoglobin 11.5, white count 9.89, platelets 214,000. CBCs remained stable. INR 1.15, PTT 38. D-dimer elevated at 2.1. Drug levels were monitored. Chemistries monitored. Creatinine 1.85 with a BUN of 29 on March 27. TSH 0.75. LDL 118. Natriuretic peptide 1916 on March 23. Amylase 71, lipase 6, normal. Sputum positive for Staphylococcus aureus, which was treated with IV vancomycin. The patient was isolated. Cultures of the blood were negative times 2. ER, March 22, admission chest x-ray, patchy density in left lung base, "pneumonia is not excluded." Aneurysmal dilated thoracic aorta. Abdominal x-ray, nonobstructive bowel gas pattern. I was paged by the radiologist regarding the patient's V/Q scan representing intermediate probability of acute pulmonary embolic disease. Parenchymal lung disease, left lung base. Obstructive lung disease, severe. Cardiomegaly. Ectatic thoracic aorta. A PICC line was ordered by the patient's beverage sales consultant in the emergency room. Chest CT, trace left pleural effusion. Atelectatic changes, posterior right lower lobe. Fusiform aneurysmal dilatation at aortic arch and descending thoracic aorta, stable compared to prior exam here. The patient was not able to be given IV contrast material while here because of her renal insufficiency. Technicians report extremity venous studies, no deep venous thrombosis. The patient had a very slow course of progressive improvement and her shortness of breath improved and resolved subjectively. Followup chest x-ray was requested. The patient declines. The patient did undergo an esophagogastroduodenoscopy which revealed pyloric channel ulcer without active bleeding. Patchy nodularity, second portion of duodenum, biopsied. Gastritis, biopsied. Small sliding hiatal hernia. Minute nodule gastroesophageal junction, biopsied. Distal esophagitis. Pathology reports per computer at this time negative for Helicobacter. Stomach biopsy no pathologic ulceration. Duodenal biopsy, no pathologic ulceration. Gastroesophageal junction biopsy, mild reactive carditis. The patient's treatment included proton pump inhibitors. She was continued on her prior admission regimen. Her psychiatry beverage sales consultant ordered Namenda, Zyprexa. She transiently received Lovenox per her pulmonary beverage sales consultant. Broad spectrum antibiotics were administered in addition to her vancomycin empirically initially. The patient was also given nicotine 7 mg topical daily. Her psychiatry beverage sales consultant ordered Depakote delayed release 125 mg q.12 h. The patient developed pruritus in the upper leg area without external findings and was prescribed empirically Lotrisone transiently. Ultimately, the patient improved significantly and elected to leave the hospital against medical advice. She was asked to see her primary care physician on the day following this date, the date of her departure from this hospital, March 29, 2018. FINAL IMPRESSION: 1. Respiratory failure improved. 2. Acute pulmonary infiltrate. 3. Congestive heart failure. The patient's echocardiogram revealed ejection fraction of 25% to 30%. She was treated with diuretics and angiotensin receptor blockers. Cozaar 50 mg daily. DIAGNOSES: Included 1. Coronary disease and dilated thoracic aorta. The patient declined recommended reassessment of her vascular system and she declined any invasive procedures. History includes renal insufficiency, acute. 2. Congestive heart failure as mentioned with chronic left ventricular systolic failure. 3. Psychosis per her psychiatry beverage sales consultant, see his note. 4. Acute duodenal ulcer as well as gastritis and esophagitis. 5. History of back surgery times 6 with chronic low back pain and chronic analgesic use including hydrocodone. 6. Peripheral vascular disease. 7. Chronic obstructive pulmonary disease. 8. Ongoing heavy tobacco use. 9. Primary hypertension. The patient was advised in favor of transfer from here to [facility], which she declined informedly. See also her prior admission meds which will be resumed until her return to clinic in the morning. LAN SOLORIO MD Job#: [id number] GE
--- NOTE | 2018-04-02 13:12 | Consultation ---
DATE OF CONSULTATION: March 24, 2018 PULMONARY CONSULTATION Patient of Dr. Carver. Unfortunate 72-year-old woman, admitted with cough productive of green sputum and chest pain. History of COPD is denied by patient. History of hypertension, history of old ankle fracture which she attributes to excessive antihypertensive medications. HISTORY OF ALLERGY TO IODINE. MEDICATIONS: Have included clonidine, Plavix, Pepcid, Vicodin, losartan, Lopressor, Risperidone, Ambien. She has not required home oxygen. She lives at home. Her son lives in her apartment. She has had appendectomy, cataract surgery, gallbladder surgery, hysterectomy. Complains of carious teeth. She has had operations for ulcers. She is somewhat belligerent but accurate historian. Smokes 1 to 2 cigarettes a day. Is requesting nicotine patch. PHYSICAL EXAMINATION GENERAL: She is a slight white female, no acute distress, somewhat anxious, complaining of nicotine withdrawal. HEAD: Normocephalic, atraumatic. NECK: Trachea midline. LUNGS: Rales and rhonchi left chest. HEART: Regular rhythm. ABDOMEN: Nontender. EXTREMITIES: Nonedematous. She refuses to have her legs uncovered. BMP is elevated suggesting element of congestive heart failure. IMPRESSION 1. Pneumonia. Pulmonary embolus seems unlikely. CT scan appears matched. Will defer CT angiogram in view of her allergies. Recommend venous Doppler. Anti-staph cover in view of Staph aureus found in the sputum. Patient worked at [employer]. 2. History of congestive heart failure with ejection fraction of 45%. 3. History of chronic obstructive pulmonary disease. 4. Diverticular disease. 5. Hypertension. 6. Duodenal ulcer. 7. Alcohol and tobacco abuse in the past according to old record. It is uncertain why the patient takes Plavix. Thank you for this kind referral. Job#: [id number] NEIL
== END 2018-03-29 15:33 | disposition left against medical advice (07) | DRG 177 ==
LOC: ER 12:57 → ERHOLD 15:18 → MED/SURG3 16:16
PROVIDERS: ADMIT Internal Medicine; ATTEND Internal Medicine
PROC: 02HV33Z Insertion of Infusion Device into Superior Vena Cava, Percutaneous Approach (ICD-10-PCS; 2018-03-23)
PROC: 0DB78ZX Excision of Stomach, Pylorus, Via Natural or Artificial Opening Endoscopic, Diagnostic (ICD-10-PCS; 2018-03-25)
PROC: 0DB48ZX Excision of Esophagogastric Junction, Via Natural or Artificial Opening Endoscopic, Diagnostic (ICD-10-PCS; 2018-03-25)
PROC: 0DB98ZX Excision of Duodenum, Via Natural or Artificial Opening Endoscopic, Diagnostic (ICD-10-PCS; principal; 2018-03-25 11:08)
DX: J15.212 Pneumonia due to Methicillin resistant Staphylococcus aureus (principal); J96.90 Respiratory failure, unspecified, unspecified whether with hypoxia or hypercapnia; K57.92 Diverticulitis of intestine, part unspecified, without perforation or abscess without bleeding; F03.91 Unspecified dementia, unspecified severity, with behavioral disturbance; I50.22 Chronic systolic (congestive) heart failure; I11.0 Hypertensive heart disease with heart failure; J44.9 Chronic obstructive pulmonary disease, unspecified; I16.0 Hypertensive urgency; I25.10 Atherosclerotic heart disease of native coronary artery without angina pectoris; I73.9 Peripheral vascular disease, unspecified; E78.5 Hyperlipidemia, unspecified; I71.2 Thoracic aortic aneurysm, without rupture; F29 Unspecified psychosis not due to a substance or known physiological condition; K26.9 Duodenal ulcer, unspecified as acute or chronic, without hemorrhage or perforation; F10.10 Alcohol abuse, uncomplicated; E86.9 Volume depletion, unspecified; H91.3 Deaf nonspeaking, not elsewhere classified; M19.90 Unspecified osteoarthritis, unspecified site; G89.29 Other chronic pain; K59.00 Constipation, unspecified; K20.9 Esophagitis, unspecified; K44.9 Diaphragmatic hernia without obstruction or gangrene; K29.70 Gastritis, unspecified, without bleeding; R91.8 Other nonspecific abnormal finding of lung field
CPT/HCPCS: 36415; 36569; 43239; 71045; 71250; 74018; 78582; 80048; 80053; 80061; 80202; 82150; 82550; 82553; 83605; 83690; 83735; 83880; 84443; 84484; 85025; 85379; 85610; 85730; 87040; 87070; 87186; 87205; 88305; 88312; 93005; 93306; 93970; 94640; 96361; 97139; 99284; A9540; A9558; J1170; J1650; J1940; J1956; J2001; J2250; J2405; J2550; J2930; J2997; J3370; J7040; J7042; J7050

== ENCOUNTER 2018-04-12 19:16 | Emergency (ER) | payer MEDICARE, BC ==
[~2018-04-12] VITALS: Ht 170.2 cm; Wt 90.7 kg
[2018-04-12 19:44] LABS: BASOPHILS # (AUTO) 0.1 (0.0-0.1); BASOPHILS % 1.3 % (0.0-1.0); EOSINOPHILS # (AUTO) 0.5 (0.0-0.4); EOSINOPHILS % 6.3 % (0.0-6.0); HEMATOCRIT 37.2 % (34.2-44.1); HEMOGLOBIN 12.2 g/dL (12.0-16.0); LYMPHOCYTES # (AUTO) 3.2 (1.0-3.2); LYMPHOCYTES % 40.1 % (18.0-39.1); MEAN CORPUSCULAR HEMOGLOBIN 30.7 pg (28-32); MEAN CORPUSCULAR HGB CONC 32.8 g/dL (31-35); MEAN CORPUSCULAR VOLUME 93.5 fL (81-99); MONOCYTES # (AUTO) 0.7 (0.2-0.8); MONOCYTES % 8.6 % (4.4-11.3); NEUTROPHILS # (AUTO) 3.4 (2.1-6.9); NEUTROPHILS % 43.4 % (38.7-80.0); PLATELET COUNT 329 x10e3/uL (140-360); RED BLOOD COUNT 3.98 x10e6/uL (3.6-5.1); RED CELL DISTRIBUTION WIDTH 14.6 % (11.7-14.4)
[2018-04-12] MEDS ORDERED: HYDROCODONE/APAP 7.5MG-325MG 1 EA TAB PO NR (19:45)
[2018-04-12 19:49] LABS: INR 1.05; PROTHROMBIN TIME 12.9 seconds (11.9-14.5)
[2018-04-12 19:50] LABS: PARTIAL THROMBOPLASTIN TIME 35.4 seconds (23.8-35.5)
[2018-04-12 19:57] LABS: ALBUMIN 3.6 g/dL (3.5-5.0); ALBUMIN/GLOBULIN RATIO 0.8 (0.8-2.0); ANION GAP 17.9 mmol/L (8-16); CALCIUM 9.4 mg/dL (8.4-10.2); CREATININE, SERUM 0.94 mg/dL (0.57-1.11); MAGNESIUM 1.7 MG/DL (1.3-2.1)
[2018-04-12] MEDS ORDERED: POTASSIUM CHLORIDE 20 MEQ TAB CR PO NR (20:00)
[2018-04-12 20:03] LABS: POTASSIUM 2.9 mmol/L (3.5-5.1)
[2018-04-12] MEDS ORDERED: ONDANSETRON HCL INJ 2 MG/ML VIAL IV STA (20:04)
--- NOTE | 2018-04-12 20:30 | Diagnostic Imaging Report ---
EXAM: CHEST 2 VIEWS, PA and lateral INDICATION: Recent pneumonia, shortness of breath COMPARISON: AP view of the chest March 23, 2018 FINDINGS: LINES/TUBES: None LUNGS: Emphysematous changes without consolidation. PLEURA: No effusions or pneumothorax. HEART AND MEDIASTINUM: Stable severe aneurysmal dilation of the thoracic aorta. Stable enlargement of the heart. BONES AND SOFT TISSUES: No acute findings. IMPRESSION: No interval change in appearance of the chest. Stable severe aneurysmal dilation of the thoracic aorta. No evidence of pneumonia. Signed by: Dr. Shila Burris M.D. on 04/12/2018 8:27 PM
[2018-04-12 20:59] LABS: CREATINE KINASE MB 1.1 ng/mL (0-5.0)
[2018-04-12] MEDS ORDERED: PREDNISONE10 MG PO (22:22)
[2018-04-12] MEDS ORDERED: DOXYCYCLINE HY100 MG PO (22:23)
[2018-04-12 22:27] LABS: CLARITY,URINE HAZY (CLEAR); COLOR,URINE YELLOW (YELLOW)
[2018-04-12 22:31] VITALS: BP 155/74
[2018-04-12 22:32] LABS: BILIRUBIN,URINE 2+ (NEGATIVE); KETONES,URINE 1+ (NEGATIVE); LEUKOCYTE ESTERASE ,URINE TRACE (NEGATIVE); NITRITE,URINE NEGATIVE (NEGATIVE); PROTEIN,URINE DIPSTICK 1+ (NEGATIVE); URINE UROBILINOGEN 0.2 mg/dL (0.2 - 1)
[2018-04-12 22:33] LABS: BACTERIA,URINE FEW /HPF; EPITHELIAL CELLS,URINE MODERATE /LPF
== END 2018-04-13 00:28 | disposition home or self-care (01) ==
LOC: ER 19:16
DX: R06.00 Dyspnea, unspecified (principal); R05 Cough; J41.1 Mucopurulent chronic bronchitis; F17.210 Nicotine dependence, cigarettes, uncomplicated
CPT/HCPCS: 36415; 71046; 80053; 81001; 82550; 82553; 83735; 83880; 84484; 85025; 85610; 85730; 87040; 87086; 99283; J2405

== ENCOUNTER 2018-08-21 16:26 | Emergency (ER) | payer MEDICARE, BC ==
[~2018-08-21] VITALS: Ht 170.2 cm; Wt 90.7 kg
[~2018-08-21 16:26] MED LIST changes: +DOXYCYCLINE HY100 MG PO; +PREDNISONE10 MG PO
--- OUTSIDE RECORDS SUMMARY | 2018-08-21 16:38 | XMS REPORT | Continuity of Care Document ---
Author Author [facility] Interface Address Unknown Phone Unavailable Problems Problem Status Onset Date Classification Date Reported Comments Source 719.47 - [facility] Active 12/11/2012 [facility] [place] Medications Medication Details Route Status Patient Instructions Ordering Provider Order Date Source Allergies, Adverse Reactions, Alerts Substance Category Reaction Severity Reaction type Status Date Reported Comments Source Immunizations Immunization Date Given Site Status Last Updated Comments Source Results Order Name Results Value Reference Range Date Interpretation Comments Source Vital Signs Vital Sign Value Date Comments Source Encounters Location Location Details Encounter Type Encounter Number Reason For Visit Attending Provider ADM Date DC Date Status Source OD [id number] 719.47 - [facility] [place] 12/11/2012 12/11/2012 Active [facility] [place] Procedures Procedure Code Date Perfomer Comments Source
--- OUTSIDE RECORDS SUMMARY | 2018-08-21 16:38 | XMS REPORT | Clinical Summary ---
Author Author [facility] Address Unknown Phone Unavailable Care Team Providers Care Elevator Adjuster Name Role Phone Kyle Mora MD PCP Allergies Comments Active Allergy Reactions Severity Noted Date Iodine And Iodide Anaphylaxis High 03/25/2013 Containing Products Medications End Date Status Medication Sig Dispensed Refills Start Date Active aspirin 325 MG Take 325 mg 0 tabletIndications: Acute by mouth Coronary Syndrome daily. Active acetaminophen-codeine Take 1 tablet 30 tablet 0 (TYLENOL-CODEINE #3) by mouth 7 300-30 mg per tablet every 6 (six) hours as needed for Pain for up to 30 doses. Max Daily Amount: 4 tablets Active Problems Problem Noted Date GERD (gastroesophageal reflux disease) 07/19/2017 Aortic aneurysm and dissection (HCC) (OS[facility] CT dissecting thoracic aorta with 07/18/2017 hematoma) Chest pain 07/18/2017 Diabetes mellitus 07/18/2017 CAD (coronary artery disease), hopi coronary artery (4 stents before 07/18/20172011) S/P cholecystectomy 07/18/2017 Acute upper back pain (2/2 cough) 07/18/2017 Hypertensive emergency 07/18/2017 COPD exacerbation 07/18/2017 Chronic systolic congestive heart failure (HCC) (LVEF 30%, [facility] records) 07/18/2017 Chronic pain syndrome 07/18/2017 Generalized anxiety disorder 07/18/2017 Hypertension 03/25/2013 Weakness 03/25/2013 Immunizations Name Dates Previously Given Next Due Influenza High Dose 07/21/2017 Preservative Free IM Pneumococcal 07/21/2017 Polysaccharide (Pneumovax) Social History Date Tobacco Use Types Packs/Day Years Used Current Every Day Smoker Tobacco Cessation: Ready to Quit: No Alcohol Use Drinks/Week oz/Week Comments No Sex Assigned at Date Recorded Not on file Industry Job Start Date Occupation Not on file Not on file Not on file Travel End Travel History Travel Start No recent travel history available. Last Filed Vital Signs Not on file Plan of Treatment Not on file Results Not on fileafter 08/20/2017 Insurance Payer Benefit Subscriber ID Type Phone Address Plan / Group MEDICARE MEDICARE A xxxxxxxxxxx Medicare B Advance Directives For more information, please contact: [facility] [address] [place] [id number] Date Inactivated Comments Code Status Date Activated 07/21/2017 11:44 PM Full Code 07/18/2017 2:49 PM This code status was determined by: Patient 03/28/2013 1:55 PM All possible means of support, including: cardiac massage, mechanical ventilation, and defibrillation will be used to support life. Code ONE 03/25/2013 11:11 AM
--- NOTE | 2018-08-21 19:26 | History and Physical ---
HISTORY OF PRESENT ILLNESS: The patient presented to the emergency room with complaints that yesterday she had edema and erythema of the right foot and lower leg. She underwent venous Doppler scan of leg today. I spoke to the food equipment service technician in the radiology department who reported the patient did not have deep venous thrombus. Patient does have chronic discomfort and sensitivity of the legs for years. See also prior stays. History is significant for congestive heart failure with low ejection fraction on prior echocardiogram here, generalized atherosclerosis with aortic arch aneurysmal dilatation. The patient had declined invasive therapy chronically. The patient has a history of COPD. She states she smokes occasionally. History includes mood disorder. D-dimer was elevated when the patient was here in March. V/Q scan in March revealed intermediate probability of embolic disease. Parenchymal lung disease left lung base previously. Patient has degenerative joint disease and chronic back pain and chronically takes hydrocodone . She has a history of esophagitis. The patient left the hospital against medical advice when here last March. CURRENT LAB AND IMAGING: Formal reports are pending. PHYSICAL EXAMINATION VITAL SIGNS: Pulse is 72 and regular, respiratory rate is 18, not labored. Vitals otherwise pending. HEENT: No pallor. No icterus. Throat clear. NECK: Flexes. LUNGS: Faint coarse expiratory wheeze, clears with cough. CARDIAC: Sounds S1, S2 distant. ABDOMEN: Soft. Bowel sounds normal. EXTREMITIES: Reveal tenderness. Dampened pulses. NEUROLOGIC: DTRs depressed. Babinski is negative. Strength fair to poor chronically. History has included back surgeries 6 times, peripheral vascular disease, and primary hypertension. IMPRESSION: Subjective edema and erythema yesterday of the right lower extremity. Doppler report of scan negative for deep venous thrombosis at this time. Multiple severe chronic medical illnesses including coronary artery disease. Dilated thoracic aorta. Congestive heart failure, chronic. Psychosis per psychiatry consultants last summer here. Duodenal ulcer. Gastritis esophagitis. Back surgery in the past on 6 occasions with chronic low back pain and chronic analgesics use. Peripheral vascular disease. COPD. Primary hypertension. History of tobacco use and the patient states she still smokes. Patient was seen 4 days ago and dispensed Augmentin for dental discomfort. At that time, she was encouraged to follow up with her dentist. See also prior visits and prior workups. Again, the patient declined invasive therapy. Current BP is 155/91 with O2 sat 97 and temperature 97.1. See also home med list in computer. Current plans are to wait database. Further treatment pending same. Job#: [id number] ELIZABETH
== END 2018-08-21 19:50 | disposition home or self-care (01) ==
LOC: ER 16:26
DX: M25.571 Pain in right ankle and joints of right foot (principal); M79.661 Pain in right lower leg; R60.0 Localized edema; I10 Essential (primary) hypertension; I50.9 Heart failure, unspecified; G89.29 Other chronic pain; Z86.73 Personal history of transient ischemic attack (TIA), and cerebral infarction without residual deficits; F17.210 Nicotine dependence, cigarettes, uncomplicated
CPT/HCPCS: 93971; 99283

== ENCOUNTER 2018-12-24 12:13 | Observation (INO) | payer MEDICARE, BC ==
[~2018-12-24] VITALS: Ht 170.2 cm; Wt 64.0 kg
--- OUTSIDE RECORDS SUMMARY | 2018-12-24 12:15 | XMS REPORT | Continuity of Care Document ---
Author Author [facility] Interface Address Unknown Phone Unavailable Problems Problem Status Onset Date Classification Date Reported Comments Source Ankle sprain Active 01/12/2016 Problem 08/22/2018 [facility] Chest pain Active 01/12/2016 Problem 08/22/2018 [facility] Near syncope Active 01/12/2016 Problem 08/22/2018 [facility] Hypokalemia Active 04/15/2015 Problem 08/22/2018 [facility] Dehydration Active 01/23/2015 Problem 08/22/2018 [facility] Diverticulitis Active 01/23/2015 Problem 08/22/2018 [facility] Vomiting and diarrhea Active 01/23/2015 Problem 08/22/2018 [facility] 719.47 - JOINT PAIN-ANKL Active 12/11/2012 JADEN Matthews CHF Active Problem 08/22/2018 [facility] Pneumonia Active Problem 08/22/2018 [facility] Pneumonia of left lower lobe due to infectious organism Active Problem 08/22/2018 [facility] Medications Medication Details Route Status Patient Instructions Ordering Provider Order Date Source Calcium Carbonate 500 Mg Tab Three Times A Day Active Alejo 01/25/2016 [facility] Divalproex Sodium 250 Mg Tabdr...er Every 12 Hours Active Alejo 01/25/2016 [facility] Famotidine (Pepcid) 20 Mg Tablet Twice Daily Before Meals Active Alejo 01/25/2016 [facility] Metoprolol Tartrate (Lopressor) 25 Mg Tab Every 12 Hours Active Alejo 01/25/2016 [facility] Risperidone (Risperdal) 0.5 Mg Tablet Three Times A Day Active Alejo 01/25/2016 [facility] Sennosides (Senokot) 8.6 Mg Tablet Twice A Day Active Alejo 01/25/2016 [facility] Acetaminophen With Codeine (Tylenol With Codeine #3 Tablet) 1 Each Tablet, 300 Mg Oral Every 6 Hours for Pain Active 01/25/2016 [facility] Carisoprodol (Soma) 350 Mg Tablet, Active 01/25/2016 [facility] Temazepam 15 Mg Capsule, 30 Mg Oral Bedtime Active 01/25/2016 [facility] Clonidine Hcl 0.1 Mg Tablet Daily Active [facility] Clopidogrel Bisulfate (Plavix) 75 Mg Tablet Daily Active [facility] Doxycycline Hyclate 100 Mg Capsule Daily Active [facility] Hydrocodone Bit/Acetaminophen (Anexsia 7.5/325 Mg Tablet) 1 Each Tablet Active [facility] Losartan Potassium 100 Mg Tablet Daily Active [facility] Metoprolol Tartrate 100 Mg Tablet Daily Active [facility] Prednisone 10 Mg Tab Active take 4 tablets every day for 3 days, then take 3 tablets every day for 3 days, then take 2 tablets every day for 3 days, then take 1 tablet for 3 days [facility] Zolpidem Tartrate (Ambien*) 5 Mg Tablet Active [facility] Allergies, Adverse Reactions, Alerts Substance Category Reaction Severity Reaction type Status Date Reported Comments Source Iodine Unknown Allergy to Substance Active 08/21/2018 [facility] Immunizations Immunization Date Given Site Status Last Updated Comments Source Results Order Name Results Value Reference Range Date Interpretation Comments Source Urine color determination YELLOW YELLOW 04/12/2018 [facility] Urine clarity HAZY CLEAR 04/12/2018 [facility] Specific gravity of Urine by Test strip 1.025 1.010 - 1.025 04/12/2018 [facility] Urine pH measurement by automated test strip 6 5 - 7 04/12/2018 [facility] Urine leukocyte esterase detection by dipstick TRACE NEGATIVE 04/12/2018 [facility] Urine nitrite detection NEGATIVE NEGATIVE 04/12/2018 [facility] Urine protein measurement by test strip (mass/volume) 1+ NEGATIVE 04/12/2018 [facility] Urine glucose detection NEGATIVE NEGATIVE 04/12/2018 [facility] Urine ketones detection by automated test strip 1+ NEGATIVE 04/12/2018 [facility] Urine urobilinogen measurement by test strip (mass/volume) 0.2 0.2 - 1 04/12/2018 [facility] Urine total bilirubin measurement (mass/volume) 2+ NEGATIVE 04/12/2018 [facility] Urine erythrocytes detection TRACE NEGATIVE 04/12/2018 [facility] Automated urine sediment leukocyte count by microscopy (number/high power field) 6-10 0 - 5 04/12/2018 [facility] Erythrocytes detection in urine sediment by light microscopy 6-10 0 - 5 04/12/2018 [facility] Bacteria detection in urine sediment by light microscopy FEW NONE 04/12/2018 [facility] Epithelial cells detection in urine sediment by light microscopy MODERATE NONE 04/12/2018 [facility] Hyaline casts detection in urine sediment by light microscopy 2-5 0 - 1 04/12/2018 [facility] Blood leukocytes automated count (number/volume) 7.91 4.8 - 10.8 04/12/2018 [facility] Blood erythrocytes automated count (number/volume) 3.98 3.6 - 5.1 04/12/2018 [facility] Blood hemoglobin measurement (moles/volume) 12.2 12.0 - 16.0 04/12/2018 [facility] Automated blood hematocrit (volume fraction) 37.2 34.2 - 44.1 04/12/2018 [facility] Automated erythrocyte mean corpuscular volume 93.5 81 - 99 04/12/2018 [facility] Automated erythrocyte mean corpuscular hemoglobin (mass per erythrocyte) 30.7 28 - 32 04/12/2018 [facility] Automated erythrocyte mean corpuscular hemoglobin concentration measurement (mass/volume) 32.8 31 - 35 04/12/2018 [facility] RDW BldCo-Rto 14.6 11.7 - 14.4 04/12/2018 [facility] Automated blood platelet count (count/volume) 329 140 - 360 04/12/2018 [facility] Automated blood segmented neutrophil count as percentage of total leukocytes 43.4 38.7 - 80.0 04/12/2018 [facility] Automated blood lymphocyte count as percentage ot total leukocytes 40.1 18.0 - 39.1 04/12/2018 [facility] Automated blood monocyte count as percentage of total leukocytes 8.6 4.4 - 11.3 04/12/2018 [facility] Automated blood eosinophil count as percentage of total leukocytes 6.3 0.0 - 6.0 04/12/2018 [facility] Automated blood basophil count as percentage of total leukocytes 1.3 0.0 - 1.0 04/12/2018 [facility] IM GRANULOCYTES % 0.3 0.0 - 1.0 04/12/2018 [facility] Automated blood neutrophil count 3.4 2.1 - 6.9 04/12/2018 [facility] Blood lymphocytes count (number/volume) 3.2 1.0 - 3.2 04/12/2018 [facility] Blood monocytes automated count (number/volume) 0.7 0.2 - 0.8 04/12/2018 [facility] Automated blood eosinophil count 0.5 0.0 - 0.4 04/12/2018 [facility] Automated blood basophil count (count/volume) 0.1 0.0 - 0.1 04/12/2018 [facility] Absolute Immature Granulocyte (auto 0.02 0 - 0.1 04/12/2018 [facility] Prothrombin time (PT) in platelet poor plasma by coagulation assay 12.9 11.9 - 14.5 04/12/2018 [facility] INR in Platelet poor plasma by Coagulation assay 1.05 04/12/2018 [facility] Activated partial thromboplastin time (aPTT) in platelet poor plasma bycoagulation assay 35.4 23.8 - 35.5 04/12/2018 [facility] Serum or plasma sodium measurement (moles/volume) 140 136 - 145 04/12/2018 [facility] Serum or plasma potassium measurement (moles/volume) 2.9 3.5 - 5.1 04/12/2018 [facility] Serum or plasma chloride measurement (moles/volume) 104 98 - 107 04/12/2018 [facility] Serum or plasma carbon dioxide, total measurement (moles/volume) 21 22 - 29 04/12/2018 [facility] Serum or plasma anion gap 17.9 8 - 16 04/12/2018 [facility] Serum or plasma urea nitrogen measurement (mass/volume) 12 7 - 26 04/12/2018 [facility] Serum or plasma creatinine measurement (mass/volume) 0.94 0.57 - 1.11 04/12/2018 [facility] Serum or plasma urea nitrogen/creatinine mass ratio 13 6 - 25 04/12/2018 [facility] Estimated glomerular filtration rate (GFR) determination 58 60 04/12/2018 [facility] Glucose measurement 91 74 - 118 04/12/2018 [facility] Serum or plasma calcium measurement (mass/volume) 9.4 8.4 - 10.2 04/12/2018 [facility] Serum or plasma magnesium measurement (mass/volume) 1.7 1.3 - 2.1 04/12/2018 [facility] Serum or plasma total bilirubin measurement (mass/volume) 0.5 0.2 - 1.2 04/12/2018 [facility] Aspartate Amino Transf (AST/SGOT) 20 5 - 34 04/12/2018 [facility] Serum or plasma alanine aminotransferase measurement (enzymatic activity/volume) 23 0 - 55 04/12/2018 [facility] Serum or plasma protein measurement (mass/volume) 8.0 6.5 - 8.1 04/12/2018 [facility] Serum or plasma albumin measurement (mass/volume) 3.6 3.5 - 5.0 04/12/2018 [facility] Plasma globulin measurement (mass/volume) 4.4 2.3 - 3.5 04/12/2018 [facility] Serum or plasma albumin/globulin mass ratio 0.8 0.8 - 2.0 04/12/2018 [facility] Serum or plasma alkaline phosphatase measurement (enzymatic activity/volume) 132 40 - 150 04/12/2018 [facility] BNP Bld-mCnc 1672.8 0 - 100 04/12/2018 [facility] Serum or plasma creatine kinase measurement (enzymatic activity/volume) 58 29 - 168 04/12/2018 [facility] Serum or plasma creatine kinase MB measurement (mass/volume) 1.10 0 - 5.0 04/12/2018 [facility] Troponin I measurement by highly sensitive enzyme immunoassay 0.046 0 - 0.300 04/12/2018 [facility] Blood culture NO GROWTH AFTER 5 DAYS, FINAL REPORT 04/12/2018 [facility] Serum or plasma trough vancomycin level at trough (mass/volume) 22.9 5.0 - 10.0 03/29/2018 [facility] Random serum or plasma vancomycin measurement (mass/volume) 17.5 03/28/2018 [facility] Serum or plasma triglyceride measurement (mass/volume) 160 0 - 149 03/26/2018 [facility] Serum or plasma cholesterol measurement (mass/volume) 188 0 - 199 03/26/2018 [facility] Serum or plasma cholesterol in LDL measurement (mass/volume) 118 60 - 130 03/26/2018 [facility] Serum or plasma cholesterol in HDL measurement (mass/volume) 38 40 - 60 03/26/2018 [facility] Serum or plasma total cholesterol/cholesterol in HDL mass ratio 4.9 3.0 - 3.6 03/26/2018 [facility] Serum or plasma thyrotropin measurement by detection limit <=0.005 miu/l (units/volume) 0.750 0.350 - 4.940 03/26/2018 [facility] Serum or plasma amylase measurement (enzymatic activity/volume) 71 25 - 125 03/22/2018 [facility] Serum or plasma lipase measurement (enzymatic activity/volume) 6 8 - 78 03/22/2018 [facility] Bacteria identification in sputum by respiratory culture Organism: STAPHYLOCOCCUS AUREUS-MRSA 03/22/2018 [facility] Lactic Acid Level 10.6 4.5 - 19.8 03/22/2018 [facility] Fibrin D-dimer DDU measurement in platelet poor plasma (mass/volume) 2.18 0.00 - 0.45 03/22/2018 [facility] Vital Signs Vital Sign Value Date Comments Source Encounters Location Location Details Encounter Type Encounter Number Reason For Visit Attending Provider ADM Date DC Date Status Source OD [id number] 719.47 - JOINT PAIN-ANKL ARNOLD JAME 12/11/2012 12/11/2012 Active [facility] WILLIEBisi Cassie Discharged Inpatient [id number] LAN SOLORIO MD 03/22/2018 03/29/2018 [facility] Departed Emergency Room [id number] TOMER FRAUSTO MD 04/12/2018 04/13/2018 [facility] Departed Emergency Room [id number] TOMER FRAUSTO MD 08/21/2018 08/21/2018 [facility] Procedures Procedure Code Date Perfomer Comments Source X-ray of chest, two views [id number] 04/12/2018 [facility] EXCISION OF DUODENUM, ENDO, DIAGN [id number] [facility], PYLORUS, ENDO, DIAGN [id number] 03/25/2018 [facility] EXCISION OF ESOPHAGOGASTRIC JUNCTION, ENDO, DIAGN [id number] 03/25/2018 [facility] Computed tomography of chest without contrast [id number] 03/24/2018 [facility] INSERTION OF INFUSION DEV INTO SUP VENA CAVA, PERC APPROACH [id number] 03/23/2018 [facility]
--- OUTSIDE RECORDS SUMMARY | 2018-12-24 12:15 | XMS REPORT | Clinical Summary ---
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 Active acetaminophen-codeine Take 1 tablet 30 [...] Diabetes mellitus 07/18/2017 CAD (coronary artery disease), [place] coronary artery (4 stents before 07/18/20172011) S/P [...] Not on file Results Not on fileafter 12/23/2017 Insurance Payer Benefit Subscriber ID Type Phone Address Plan / Group MEDICARE MEDICARE A xxxxxxxxxxx Medicare B Advance Directives For more information, please contact: [facility] [address] [place] [address] Date Inactivated Comments Code Status Date Activated 07/21/2017 11:44 PM Full Code 07/18/2017 2:49 PM This code status was determined by: Patient 03/28/2013 1:55 PM All possible means of support, including: cardiac massage, mechanical ventilation, and defibrillation will be used to support life. Code ONE 03/25/2013 11:11 AM
[2018-12-24] MEDS ORDERED: SODIUM CHLORIDE 0.9% 1000ML 1,000 ML IV STA (12:46)
[2018-12-24 13:34] LABS: BASOPHILS # (AUTO) 0.1 (0.0-0.1); BASOPHILS % 1.5 % (0.0-1.0); EOSINOPHILS # (AUTO) 0.1 (0.0-0.4); EOSINOPHILS % 1.4 % (0.0-6.0); HEMATOCRIT 42.9 % (34.2-44.1); HEMOGLOBIN 14.4 g/dL (12.0-16.0); LYMPHOCYTES # (AUTO) 2.2 (1.0-3.2); LYMPHOCYTES % 28.6 % (18.0-39.1); MEAN CORPUSCULAR HEMOGLOBIN 32.9 pg (28-32); MEAN CORPUSCULAR HGB CONC 33.6 g/dL (31-35); MEAN CORPUSCULAR VOLUME 97.9 fL (81-99); MONOCYTES # (AUTO) 0.6 (0.2-0.8); MONOCYTES % 7.9 % (4.4-11.3); NEUTROPHILS # (AUTO) 4.7 (2.1-6.9); NEUTROPHILS % 60.3 % (38.7-80.0); PLATELET COUNT 235 x10e3/uL (140-360); RED BLOOD COUNT 4.38 x10e6/uL (3.6-5.1); RED CELL DISTRIBUTION WIDTH 14.6 % (11.7-14.4)
[2018-12-24 13:53] LABS: ALBUMIN 3.8 g/dL (3.5-5.0); ALBUMIN/GLOBULIN RATIO 0.9 (0.8-2.0); ANION GAP 15.5 mmol/L (8-16); CALCIUM 10.1 mg/dL (8.4-10.2); CREATININE, SERUM 1.01 mg/dL (0.57-1.11); POTASSIUM 3.5 mmol/L (3.5-5.1)
[2018-12-24 13:59] LABS: CREATINE KINASE MB 1.6 ng/mL (0-5.0)
[2018-12-24 14:04] LABS: B-TYPE NATRIURETIC PEPTIDE2 1828.3 pg/mL (0-100)
--- NOTE | 2018-12-24 15:12 | Diagnostic Imaging Report ---
EXAM: AP chest radiograph-1 view INDICATION: Congestion, runny nose. COMPARISON: Chest radiograph 04/12/2018. FINDINGS: LINES/TUBES: None LUNGS: Emphysematous changes of lungs. No evidence of pneumonia or pulmonary edema. PLEURA: No effusions or pneumothorax. HEART AND MEDIASTINUM: Stable severe aneurysmal dilation of the thoracic aorta. Stable enlargement of the heart. BONES AND SOFT TISSUES: No acute findings. UPPER ABDOMEN: Status post cholecystectomy. IMPRESSION: Similar appearance of severe aneurysmal dilation of the thoracic aorta. No evidence of pneumonia. Signed by: Dr. Hussein Elias MD on 12/24/2018 3:09 PM
[2018-12-24 15:24] LABS: CLARITY,URINE SL CLOUDY (CLEAR); COLOR,URINE YELLOW (YELLOW); LEUKOCYTE ESTERASE ,URINE TRACE (NEGATIVE); NITRITE,URINE NEGATIVE (NEGATIVE); PROTEIN,URINE DIPSTICK 2+ (NEGATIVE)
[2018-12-24 15:25] LABS: BILIRUBIN,URINE 1+ (NEGATIVE); KETONES,URINE NEGATIVE (NEGATIVE); URINE UROBILINOGEN 0.2 mg/dL (0.2 - 1)
[2018-12-24 15:37] LABS: AMORPHOUS SEDIMENT,URINE MODERATE (FEW); BACTERIA,URINE MANY /HPF; EPITHELIAL CELLS,URINE MODERATE /LPF
[2018-12-24 15:38] LABS: MUCUS,URINE FEW (RARE)
[2018-12-24] MEDS ORDERED: CEFTRIAXONE SOD 1 GM/NS 50 ML 50 ML IV SCH ×2 (15:45→17:00)
[2018-12-24] MEDS ORDERED: IOPAMIDOL 370 MG/ML 200 ML INFUS..BTL INJ ONE (16:08)
[2018-12-24] MEDS ORDERED: SODIUM CHLORIDE 0.9% 50ML 0 ML ONE (16:08)
[2018-12-24] MEDS ORDERED: METOPROLOL TARTRATE INJ 1 MG/ML VIAL ONE (16:38)
--- NOTE | 2018-12-24 16:38 | Diagnostic Imaging Report ---
EXAM: CT Abdomen and Pelvis WITHOUT contrast INDICATION: Abdominal pain. COMPARISON: CT abdomen/pelvis without contrast 09/25/2017. TECHNIQUE: Abdomen and pelvis were scanned utilizing a multidetector helical scanner from the lung base to the pubic symphysis without administration of IV or positive oral contrast. Absence of intravenous contrast decreases sensitivity for detection of focal lesions and vascular pathology. Coronal and sagittal reformations were obtained. Routine protocol was performed. RADIATION DOSE: Total DLP: 279.1 mGy*cm Dose modulation, iterative reconstruction, and/or weight based adjustment of the mA/kV was utilized to reduce the radiation dose to as low as reasonably achievable. FINDINGS: LINES and TUBES: None. LOWER THORAX: Unremarkable HEPATOBILIARY: No focal hepatic lesions. Status post cholecystectomy. There is intra- and extra- hepatic biliary dilation likely post cholecystectomy reservoir effect. SPLEEN: No splenomegaly. PANCREAS: No focal masses or ductal dilatation. ADRENALS: No adrenal nodules KIDNEYS/URETERS: No hydronephrosis. No evidence of solid mass or stone. Unchanged appearance of 2.9 cm left renal interpolar cyst. GI TRACT: No abnormal distention, wall thickening, or evidence of bowel obstruction. Diverticulosis without CT evidence of diverticulitis. Appendix is not clearly identified. There is however no fat stranding or adenopathy in the right lower quadrant to suggest appendicitis. PELVIC ORGANS/BLADDER: Decompressed bladder is not well evaluated. LYMPH NODES: No lymphadenopathy. VESSELS: Tortuous abdominal aorta with associated atherosclerotic calcifications. There has been interval increase in size of a bilobed juxtarenal and infrarenal abdominal aortic aneurysm. The juxtarenal component measures up to 4.1 cm, previously 3.9 cm. The infrarenal component measures up to 4.3 cm, previously 4.0 cm. No definite intramural hematoma. Evaluation in the absence of contrast is severely limited. PERITONEUM / RETROPERITONEUM: No free air or fluid. BONES: No acute radiographic abnormality. There is a mild anterior wedge compression deformity of L1. Postsurgical changes status post posterior decompression from L2 through S1 is again noted. IMPRESSION: Limited study in the absence of intravenous contrast. Tortuous abdominal aorta with interval increase in size of a bilobed juxtarenal and infrarenal abdominal aortic aneurysm, measuring up to 4.3 cm, previously measuring up to 4.[address] abdomen/pelvis from 09/25/2017. No definite intramural hematoma. Suggest follow-up CT angiogram with contrast. Colonic diverticulosis without CT evidence of diverticulitis. Signed by: Dr. Hussein Elias MD on 12/24/2018 4:35 PM
[2018-12-24] MEDS ORDERED: METOPROLOL TARTRATE INJ 1 MG/ML VIAL IV ONE (16:45)
[2018-12-24] MEDS ORDERED: SODIUM CHLORIDE 0.9% 1000ML 1,000 ML IV SCH (16:59)
--- OUTSIDE RECORDS SUMMARY | 2018-12-24 17:11 | XMS REPORT | Clinical Summary ---
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 Name Role Phone Kyle Mora MD PCP [...] Diabetes mellitus 07/18/2017 CAD (coronary artery disease), [place] coronary artery (4 stents before 07/18/20172011) S/P [...] Advance Directives For more information, please contact: [facility] [address] [place] [address] Date Inactivated Comments Code Status Date Activated 07/21/2017 11:44 PM Full Code 07/18/2017 2:49 PM This code status was determined by: Patient 03/28/2013 1:55 PM All possible means of support, including: cardiac massage, mechanical ventilation, and defibrillation will be used to support life. Code ONE 03/25/2013 11:11 AM
[2018-12-24] MEDS ORDERED: METOPROLOL TARTRATE 25 MG TAB PO SCH (19:15)
[2018-12-24] MEDS ORDERED: CLONIDINE HCL 0.1 MG TAB PO ONE (19:15)
[2018-12-24] MEDS ORDERED: NORCO 7.5-3251 EACH PO (20:58)
[2018-12-24] MEDS ORDERED: DIVALPROEX SODIUM 250 MG PO SCH (21:00)
[2018-12-24] MEDS: DIVALPROEX SODIUM 250 MG TAB...DR PO SCH ×2 (21:37→23:00)
[2018-12-24] MEDS: RISPERIDONE 0.5 MG TAB PO SCH ×2 (21:37→23:00)
[2018-12-24] MEDS ORDERED: HYDROCODONE/APAP 7.5MG-325MG 1 EA TAB ONE (21:46)
--- NOTE | 2018-12-24 21:47 | NUR ---
order rec'd from dr. ley for pain medication--norco 7.5mg every 8 hrs as needed
[2018-12-24] MEDS: HYDROCODONE/APAP 7.5MG-325MG 1 EA TAB PO PRN (22:02)
[2018-12-24 23:00] VITALS: BP_SYST 156; BP_SYST 161; BP_DIAS 103; BP_DIAS 91
--- NOTE | 2018-12-24 23:00 | NUR ---
PATIENT ARRIVED VIA STRETCHER AAOX3. PATIENT WEARS GLASSES. PATIENT HAS HAD CATARACT SX AND IS LEGALLY BLIND. PATIENT DOES USE WALKER AND HAS WEAKNESS THE BLL. PATIENT DOES NEED STANDBY ASSISTANCE. PATIENT HAS A HISTORY OF X3 STROKES. PATIENT HAS HAD X6 BACK SX. PATIENT HAS HISTORY RA. PATIENT HAS HAD LEFT ANKLE SX. PATIENT DOES SMOKE DAILY AND MAY NEED NICOTINE PATCH. PATIENT DOES HAVE SINUS TROUBLE PATIENT IS BISHOP PAIUTE BUT DOES NOT WEAR HEARING AIDS. PATIENT HAS HISTORY OF HTN. PATIENT HAS HOME HEALTH WITH [facility]. PATIENT NEEDS SOCIAL SERVICE CONSULT DUE TO RECENT OF SON WHO WAS CAREGIVER. PATIENT HAS RED BLANCHABLE SACRAL REDNESS DUE TO FREQUENT STOOLING. PATIENT HAS BEEN PLACED ON CONTACT ISOLATION AND A SPECIMEN FOR C-DIFF NEEDS TO BE COLLECTED. PATIENT HAS IRREGULAR HEART BEAT. DIMINISHED LOWER LUNG SOUNDS WITH CLEAR UPPER LUNG SOUNDS. PATIENT STATED PAIN LEVEL 7/10 ON ADULT NUMERICAL PAIN SCALE. LEFT BACK/SHOULDER PAIN. PATIENT RECENTLY GIVEN NARCO. PATIENT DOES LIVE ALONE AT THIS TIME. PATIENT BED IS LOCKED AND LOW. ANTI-SKID SOCKS ON. CALL KEY IN REACH AND EXPLAINED. PATIENT BED ALARM IS ON. WALKER TO BE PLACED AND STOOL SPECIMEN TO BE COLLECTED. ALL ABOVE PASSED IN REPORT TO PM NURSE WHO ASSUMES CARE AT THIS TIME.
[2018-12-25] VITALS (7 sets, daily range): BP systolic 101–161; BP diastolic 58–91
--- NOTE | 2018-12-25 01:30 | History and Physical ---
HISTORY: The patient was brought to the emergency room she states because of nausea and diarrhea. She was seen by the emergency room physician. The patient had other symptoms after arrival according to the ER physician. These included scapular pain positional. History of aneurysms. The ER physician initiated treatment with 125 mL saline IV q.8 and recommended that the patient be hospitalized for observation as her troponin was 0.3. See also had multiple other recent visits. The patient was here for a week in March of 2018. See notes then. Difficulties have included chronic back pain with multiple prior lumbosacral surgeries. The patient was seen by Dr. Hatfield during her visit here in March and his impression was nonspecific psychosis and dementia. See notes per electronic medical record. The patient stated previously she had history of coronary artery disease and prior stents and declined cardiac workup on multiple occasions here previously. She was seen by Dr. Queen when here in last March. Ejection fraction was low, "a high 20's" then. The patient is sedentary and states that she is able to get about her house. She has history of ascending dilated aorta to 5.3 and descending aorta 4.4 cm aneurysms. The patient continues to smoke, she says 4 cigarettes approximately and has a history of COPD. She denies current symptoms of acute bronchitis. She has chronic discomfort involving the left ankle. The patient has history for high blood pressure. See also meds as prior to admission documented in the EMR. These have been reordered. ALLERGIES: THE PATIENT STATES SHE IS ALLERGIC TO IODINE. FAMILY HISTORY: States family history is not contributory. PAST SURGICAL HISTORY: The patient is unaware of the other surgical history. The patient underwent EGD here last year revealing duodenal ulcer and gastritis. Biopsies are benign. Old records indicate prior surgery also includes tonsillectomy and cholecystectomy, tubal ligation, bilateral cataract surgery. FAMILY HISTORY: Old record indicates, father of accidental fire at age 59. Mother age 60 after two SC's . The patient's son has recently of unknown cause. Old chart indicates, he had history of arrhythmias. PHYSICAL EXAMINATION: Current examination: VITAL SIGNS: Blood pressure 150/108, pulse 80 and regular, respiratory rate 14, not labored, temperature 98. HEENT: Pupils round and reactive. EOMs full. No icterus or pallor. Left TM deranged and retracted. Right TM with some retraction. Throat clear. NECK: Essentially negative (old chart indicate past history of peripheral vascular disease and carotid disease and the patient has declined previously intervention). PULMONARY: Auscultation reveals reduced breath sounds. No rhonchi. No wheezing. CARDIAC: S1 and S2 distant. ABDOMEN: Soft. Bowel sounds are normal. No palpable mass or megaly. EXTREMITIES: Reveal absence of peripheral pulses. DTRs are depressed. Babinski is negative x4 diffusely. No DVT to exam. No cyanosis or edema. No clubbing. LABORATORY DATA: Initial data reviewed. IMPRESSION: Current impression, acute gastroenteritis. Chronic pulmonary disease, COPD. Hypertension, malignant, unstable at this time. Peripheral vascular disease involving legs and carotids. Thoracic and aortic aneurysms. 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 Abnormal ear exam as above. Congestive heart failure. Trace elevation of troponin. Chronic pain as mentioned with prior back surgery. Chronic use of hydrocodone prior to admission routinely. Ongoing tobacco use. Abnormal urinalysis. Suspected UTI. Gastritis and peptic ulcer disease. See also old records. Current plans are to control the patient's symptoms of nausea and diarrhea. Assess gastroenteritis. Control blood pressure. Followup enzymes and EKGs. See also initial orders per ER and followup orders per myself. The patient has been under the guidance of adult protective service prior to admission. We will ask social service here to follow with us. See also consultation requested. MD IRVIN Varela/DILLON /[id number]
[2018-12-25 05:46] LABS: BASOPHILS # (AUTO) 0.1 (0.0-0.1); BASOPHILS % 0.7 % (0.0-1.0); EOSINOPHILS # (AUTO) 0.2 (0.0-0.4); EOSINOPHILS % 3.4 % (0.0-6.0); HEMATOCRIT 34.9 % (34.2-44.1); HEMOGLOBIN 11.3 g/dL (12.0-16.0); LYMPHOCYTES # (AUTO) 1.8 (1.0-3.2); MEAN CORPUSCULAR HEMOGLOBIN 32.7 pg (28-32); MEAN CORPUSCULAR HGB CONC 32.4 g/dL (31-35); MEAN CORPUSCULAR VOLUME 100.9 fL (81-99); MONOCYTES # (AUTO) 0.6 (0.2-0.8); MONOCYTES % 9.1 % (4.4-11.3); NEUTROPHILS # (AUTO) 4.3 (2.1-6.9); NEUTROPHILS % 60.7 % (38.7-80.0); PLATELET COUNT 172 x10e3/uL (140-360); RED BLOOD COUNT 3.46 x10e6/uL (3.6-5.1); RED CELL DISTRIBUTION WIDTH 14.8 % (11.7-14.4)
[2018-12-25 06:06] LABS: ALANINE AMINOTRANSFERASE 7 IU/L (0-55); ALBUMIN 2.9 g/dL (3.5-5.0); ALBUMIN/GLOBULIN RATIO 0.9 (0.8-2.0); ALKALINE PHOSPHATASE 63 IU/L (40-150); ANION GAP 12.3 mmol/L (8-16); BLOOD UREA NITROGEN 12 mg/dL (7-26); BUN/CREATININE RATIO 14 (6-25); CALCIUM 8.4 mg/dL (8.4-10.2); CARBON DIOXIDE 17 mmol/L (22-29); CHLORIDE 110 mmol/L (98-107); CREATININE, SERUM 0.87 mg/dL (0.57-1.11); EST GLOMERULAR FILTRATION RATE > 60 ML/MIN (60-); GLUCOSE 106 mg/dL (74-118); POTASSIUM 3.3 mmol/L (3.5-5.1); SODIUM 136 mmol/L (136-145)
[2018-12-25] MEDS ORDERED: FAMOTIDINE 20 MG TAB PO SCH (07:30)
[2018-12-25] MEDS: DIVALPROEX SODIUM 250 MG TAB...DR PO SCH (09:00)
[2018-12-25] MEDS ORDERED: METOPROLOL TARTRATE 50 MG TAB PO SCH (09:00)
[2018-12-25] MEDS: FLUTICASONE PROPIONATE NASAL SPRAY NS SCH ×2 (09:00→13:45)
[2018-12-25] MEDS ORDERED: METOPROLOL SUCCINATE 50 MG TAB XL PO SCH (09:00)
[2018-12-25] MEDS ORDERED: LORATADINE 10 MG TAB PO SCH (09:00)
[2018-12-25] MEDS ORDERED: NON-FORMULARY MEDICATION (Metoprolol Tartrate 100 MG) PO SCH (09:00)
[2018-12-25] MEDS: RISPERIDONE 0.5 MG TAB PO SCH (09:00)
[2018-12-25] MEDS: OXYMETAZOLINE HCL 0.05% NAS 1 SPRAY BTL SCH ×2 (09:00→13:45)
[2018-12-25] MEDS ORDERED: CLOPIDOGREL BISULFATE 75 MG TAB PO SCH (09:00)
[2018-12-25] MEDS ORDERED: LOSARTAN POTASSIUM 100 MG TAB PO SCH (09:00)
[2018-12-25] MEDS ORDERED: CLONIDINE HCL 0.1 MG TAB PO SCH (09:00)
[2018-12-25] MEDS ORDERED: SALINE 0.65% NAS SOLN 1 SPRAY BTL SCH (10:00)
--- NOTE | 2018-12-25 10:14 | NUR ---
Nutrition Screen Note RD Recommendation for Physician: -Consider low fiber, cardiac diet. -Smaller frequent blander meals throughout the day. 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 Ht: 67 in Wt: 141 lb BMI: 22.08 kg/m2 IBW: [address] Assessment: 12/25: 73 YOF admitted for UTI. Pt presented to the hospital with nausea and diarrhea per H and P. Pt was seen finishing her breakfast, 75% of the meal was completed so far. Pt stated she needed her emesis bag just in case she was going to throw up after eating, she then reported that at home prior to admission she was having issues eating and then having N/V. Nurse brought the emesis bag for her. Pt stated she tolerated her B today so far. She denied any chewing or swallowing issues, but stated she still has diarrhea. Recommended a low fiber and blander diet with smaller frequent meals throughout the day to help alleviate diarrhea and nausea symptoms. Noted stool characteristics: liquid on (12/24)- per EMR. Pt reported her UBW is around 140-145 pounds, suggesting pt has not lost any significant weight d/t her N/V/D at home. Pt had no other questions or concerns. Chart reviewed. Labs (k-low) and meds reviewed. Will continue to monitor. Current Diet: cardiac Malnutrition Evaluation (12/25) The patient does not meet criteria for a specified degree of malnutrition at this time. Will re-evaluate at follow-up as appropriate. Diet Education Needs Assessment: Diet education not indicated. Pt not appropriate to educate at this time. Nutrition Care Level: low Addendum: 12/25/18 at 1017 by Lexii Mckeon DIET Signed: RONNY Sheldon
[2018-12-25 11:15] LABS: THYROID STIMULATING HORMONE 1.136 uIU/mL (0.350-4.940)
[2018-12-25] MEDS ORDERED: LORAZEPAM 0.5 MG TAB PO PRN (12:15)
[2018-12-25] MEDS ORDERED: HALOPERIDOL LACTATE 5 MG/ML VIAL IM PRN (12:30)
[2018-12-25] MEDS ORDERED: LORAZEPAM INJ 2 MG/ML VIAL IM PRN (12:30)
[2018-12-25] MEDS ORDERED: ASPIRIN 81 MG CHEW TAB PO ONE (13:15)
[2018-12-25] MEDS: HYDROCODONE/APAP 7.5MG-325MG 1 EA TAB PO PRN (13:15)
[2018-12-25] MEDS ORDERED: POTASSIUM CHLORIDE 10MEQ EA PO NR (14:00)
--- NOTE | 2018-12-25 14:12 | NUR ---
SOCIAL WORK INITIAL ASSESSMENT Base Remover to bedside to discuss plan of care with patient/family. CM/SW role and care transitions discussed. Anticipated discharge plan discussed along with duration of care. CM/SW discussed patients right to make decisions in care. CM/SW work hours given. Patient lives: IN APARTMENT BY SELF Admit/Transfer: VIA ED POA/Emergency contact: FRIEND AND NEIGHBOR JUAN [phone] Current/Previous Home Health: APS HAS SET UP PROVIDER, WHICH SHE WONT LET IN HOME PCP/Follow-up Care: OSMIN Current/Previous DME: HAS A WALKER REQUESTING A WHEELCHAIR Other Services: [facility] [employer] [employer] IS ASSISTING HER WITH RENT FOR OCTOBER AND NOVEMBER PLUS ALL MEDICATIONS AND FOOD. PT WILL NEED TO ASSUME RESPONSIBILITIES FINANCIALLY IN DECEMBER, SHE IS REQUESTIG A WHEELCHAIR AND A RAMP TO BE PUT IN FRONT OF HER APARTMENT. SHE STATES SON JUST . SHE STATES AIDAN THE PROVIDER IS TOO AGGRESSIVE AND DOESN'T LIKE HER. SPOKE WITH JAVAN DOBSON [phone] WITH OFFICE NUMBER OF [phone] WHOM STATES HE WILL FOLLOW UP WITH PT AFTER DISCHARGE TOMORROW AND SHE IS ON SERVICE WITH THEM. Employment Status: RETIRED Areas of Concerns: NOT HAPPY WITH HER PROVIDER AND DOES NOT WANT APS IN HER HOME, SMOKES 4 PACKS OF CIGARETTES A DAY Referral Needs: WILL ATTEMPT TO GET AUTH FOR A WHEELCHAIR IF CAN GET AN ORDER TO BE DELIVERED TO HER HOME, IF NOT THEN SHE WILL HAVE TO FOLLOW UP WITH HER PCP Education Needs: NONE IMM/GAN given and signed (if applicable): UPON ADMISSION Goal for discharge: RETURN TO HER APARTMENT CM/SW left business card at the bedside with contact information. Name and number was also written on the patients whiteboard. Patient verbalized understanding of discussion. CM will follow-up with ongoing discharge and transition of care needs.
[2018-12-25 14:25] LABS: HEMATOCRIT 32.7 % (34.2-44.1); HEMOGLOBIN 10.8 g/dL (12.0-16.0)
--- NOTE | 2018-12-25 15:24 | Consultation ---
DATE OF CONSULTATION: 12/25/2018 REASON FOR CONSULTATION: Elevated troponin and aneurysm. CHIEF COMPLAINT: Nausea, vomiting, chills. HISTORY OF PRESENT ILLNESS: This is a 73-year-old female with history of CHF, coronary artery disease, COPD, abdominal aneurysm, hypertension, PVD, psychosis, dementia, GERD, gastritis, long time smoker. The patient presents to [facility] with complaints of 3 to 4 days of diarrhea, vomiting with meals and chills. Labs were noted with a troponin of 0.[address] of the abdomen was done showing abdominal aneurysm of 4.3 cm. Cardiology was consulted to evaluate the patient. The patient seen in room, very difficult to obtain information, very hard of hearing. She states that she has not been taking her "meds for years." Apparently, she was seeing Dr. Milton in the [facility]. The patient reports that she has been having these diarrhea and vomiting spells with meals and chills for about three to four days and currently feeling much better. Denies any chest pain, shortness of breath, any orthopnea, PND. PAST MEDICAL HISTORY: Coronary artery disease status post PCI, chronic congestive heart failure, COPD, smoker, dilated thoracic aorta and aortic arch, abdominal aortic aneurysm, repeated UTIs, psychosis, dementia, duodenal ulcer. PAST SURGICAL HISTORY: Status post PCI, status post back surgeries x2, tonsillectomy, cholecystectomy, tubal ligation, right and left cataract surgery. FAMILY HISTORY: Apparently, her father at age 59 apparently from fire. Mother at age 60 apparently from myocardial infarction. ALLERGIES: TO IODINE. HOME MEDICATIONS: The patient reports she takes no medications at home. REVIEW OF SYSTEMS: GENERAL: Positive for fatigue, weakness, chills. Denies any fever. SKIN: Denies any rashes or sores. HEENT: Positive for nausea and vomiting. Denies any vision changes or any blurred vision, double vision, any epistaxis. Positive for hard of hearing. Denies any sore throat, swollen neck, hoarseness. CARDIAC: Denies any chest pain, any palpitations, any lower extremity edema, orthopnea, PND. Positive for dyspnea on exertion. RESPIRATORY: Denies any shortness of breath, any cough, any wheezing, any hemoptysis. GI: Reports nausea and vomiting x3 to 4 days and diarrhea. Denies any hematochezia or melena. URINARY: Positive for frequency and urgency. Denies hematuria or dysuria. VASCULAR: Denies any lower extremity edema. Complains of left ankle pain x4 years after a fall four years ago. NEUROLOGIC: Denies any tingling, tremors. Positive for weakness. Denies any blackout, seizures. HEMATOLOGY: Denies any anemia, any bruising. ENDOCRINE: Denies any heat or cold intolerance. Denies any polyuria, polydipsia, polyphagia. PHYSICAL EXAMINATION: VITAL SIGNS: Temperature 96.6, pulse 80, respiratory rate 17, blood pressure 141/88, pulse ox 98% on room air. Height 67 inches, weight 141 pounds. GENERAL: Appears stated age, in no acute distress, unreliable informant, very hard of hearing. SKIN: No rashes or bruises. HEENT: Normocephalic. Pupils equal and reactive. Extraocular movements intact. Oral mucosa pink.. NECK: Trachea midline. Soft carotid bruit on the left. No JVD. HEART: Regular rate and rhythm. PMI about 5th intercostal space. LUNGS: Bilateral breath sounds clear to auscultation, diminished throughout, however. No wheezing, no rales noted. ABDOMEN: Soft, slightly tender in the epigastric region. No organomegaly noted. MUSCULOSKELETAL: Generalized muscle weakness throughout. Also complains of left ankle pain and tenderness, however, she states this is chronic. VASCULAR: +2 bilateral radial pulses and +1 DP and PT pulses bilaterally. NEUROLOGIC: Cranial nerves 2 through 12 seem intact. LABORATORY DATA: White count 7, hemoglobin 11, hematocrit of 34, platelets 172. Chemistry; sodium 136, potassium 3.5, chloride 110, BUN 12, creatinine 0.86. Troponin 0.3. BNP 1828. Chest x-ray showing aneurysmal dilation of thoracic aorta. CT of the abdomen showing infrarenal abdominal aortic aneurysm measuring 4.3 cm. EKG showing sinus rhythm. ASSESSMENT: 1. Viral gastroenteritis, urinary tract infection. 2. Acute on chronic congestive heart failure. 3. Troponin leak secondary to viral infection. 4. Abdominal aortic aneurysm of 4.3 cm. 5. Coronary artery disease status post PCI. 6. Hypertension. 7. Peripheral vascular disease. 8. Psychosis. 9. Dementia. PLAN: 1. The patient presents with nausea, vomiting, diarrhea, being treated for gastroenteritis and also UTI on antibiotic therapy. She reports that she is feeling much better. 2. CT of abdomen showing abdominal aneurysm of 4.3 cm, is asymptomatic from it. At this time, no surgical indication is needed. 3. However, I do recommend blood pressure control, which the patient has been placed on; however, the patient states she does not take any medications at home. 4. We will continue to follow the patient and adjust cardiac prescription as clinical course progresses. Thank you very much for this consult. We will follow the patient. Dictated by Michael Cheema NP Johnathan Queen MD DC/DILLON /[id number]
--- NOTE | 2018-12-25 15:24 | Consultation ---
DATE OF CONSULTATION: 12/25/2018 Hospital Consultation HISTORY OF PRESENT ILLNESS: I was kindly asked to see this 73-year-old woman for evaluation of hearing loss. The patient is well known to me from previous outpatient evaluation and treatment. She now has complaints of a roughly five-year history of hearing loss. She reports becoming progressively more isolated due to the severity of her hearing loss. Reports she has difficulty in day-to-day communications and is particularly bothered when there is background noise. She first presented in 2013 with a history of hearing loss and chronic allergic rhinosinusitis. She failed to respond to outpatient medical therapy and prior to undergoing pressure equalization tube placement, had a pure tone average of 66 decibels in the right ear and 73 decibels in the left ear indicating severe bilateral hearing loss. She had a pressure equalization tubes placed on October 29, 2016, and in the postoperative period had clinically significant improvement in her hearing to an average of 43 decibels in the right ear and 51 decibels in the left ear. She still has difficulty understanding conversational speech and was subsequently lost to follow up in March of 2017. She reports no significant change in her hearing over the last year. She does report nasal congestion and drainage down the back of her throat as well as anterior facial pain and pressure. Past medical historyand past surgical history reviewed in detail, in chart. PHYSICAL EXAMINATION: The right pressure equalization tube was functioning normally and is in expected position. The tympanic membrane was unremarkable. The external auditory canal, pinna, and postauricular area were all unremarkable. The left external auditory canal was normal. There was a small amount of cerumen around the left pressure equalization tube, which appeared to remain functional. There was fluid noted in the middle ear space. The pinna and postauricular area are unremarkable. Intranasal examination shows mild edema of the nasal mucosa. She has a moderate nasal septal deviation to the right. Oral cavity examination is unremarkable. There is minimal postnasal drainage. There is symmetric elevation of the soft palate. She has no palpable cervical adenopathy. ASSESSMENT: 1. Moderately severe bilateral mixed hearing loss. 2. Tinnitus. 3. Chronic otitis media, successfully treated with pressure equalization tube placement. 4. Chronic allergic rhinosinusitis. PLAN: 1. Outpatient audiometric evaluation with consideration of bilateral amplification. 2. Afrin nasal spray 2 puffs each side of nose b.i.d. for three days. 3. Flonase 2 puffs each side of nose daily. 4. Claritin 1 p.o. daily. 5. Amagon nasal spray 2 puffs each side of nose q.4 hours while awake. MD CHRISTIE Rosario/MODL /[id number]
--- NOTE | 2018-12-25 15:26 | NUR ---
FAXED ORDER TO [facility] FOR AUTH ON WHEELCHAIR, ASKED FOR IT TO BE DELIVERED TO PT HOME SHE IS BEING DISCHARGED.
[2018-12-25] MEDS ORDERED: ATORVASTATIN 20 MG TAB PO SCH (21:00)
[2018-12-25] MEDS ORDERED: TRAZODONE HCL 50 MG TAB PO PRN (21:00)
--- NOTE | 2018-12-25 22:52 | Consultation ---
DATE OF CONSULTATION: 12/25/2018 Psychiatric Consultation. REASON FOR CONSULTATION: To evaluate patient's mood. HISTORY OF PRESENT ILLNESS: The patient is a 73-year-old female admitted to the hospital for UTI. Psychiatric consultation is called to evaluate the patient's mood. As per the medical record, the patient has history of dementia and psychosis and was seen by Dr. Hatfield last year. She also has history of high blood pressure. Upon evaluation today, the patient is found to be lying in the bed. She is alert, awake, and oriented to situation. She is hard of hearing. She is irritable, uncooperative. She is anxious, verbally combative at times. She claims that she has been not sleeping well. She is also feeling frustrated due to being hospitalized. She is complaining of pain and wants some pain medication. She appears to be very restless. She denies any depression or anxiety. She denies any hallucination. She denies any suicidal ideation. She claims that she has poor appetite due to nausea and vomiting. PAST PSYCHIATRIC HISTORY: She denies past psychiatric history, although she has been diagnosed with dementia and I believe some personality disorder. She denies past suicide attempts. She denies alcohol and drug use. FAMILY HISTORY: Denies. SOCIAL HISTORY: The patient states she lives alone. MENTAL STATUS EXAM: The patient is an elderly female. She is alert, awake, and oriented to situation. Her mood is irritable and anxious. Psychomotor status is passive. Affect is congruent with mood. Denies suicidal or homicidal ideation. Denies any hallucination. Thought process is concrete. No delusion elicited. Insight and judgment are fair. No paranoid or delusion elicited. CURRENT MEDICATIONS: 1. Loratadine. 2. Metoprolol. 3. Losartan. 4. Plavix. 5. Clonidine. 6. Famotidine. 7. [place]. 8. Ceftriaxone. 9. Sodium chloride. 10. Aspirin. 11. Afrin. 12. Flonase. 13. Depakote. 14. Risperdal. 15. Atorvastatin. CURRENT LABS: WBC 7.07, RBC 12.46, hemoglobin 11.3, hematocrit 34.9, platelets 172. Sodium 136, potassium 3.3, chloride 110, carbon dioxide 17, BUN 12, creatinine 0.87. AST 12, ALT 17. ASSESSMENT: 1. Adjustment disorder, mixed mood. 2. History of psychosis. 3. Unspecified dementia with behavior disturbances. PLAN: 1. Discontinue Risperdal and Depakote as the patient has been receiving. 2. Add Cymbalta 30 mg p.o. daily. Watch for sodium level. 3. Add trazodone 50 mg p.o. at bedtime p.r.n. 4. Add Ativan 0.5 mg p.o. IM q.6 hours p.r.n. 5. Haldol 2 mg IM q.6 hours p.r.n. 6. Monitor for mood. 7. Supportive therapy. Thank you for this consultation. Dictated by Malena Mcnally PA-C Nataly Hatfield MD QTV/MODL /[id number]
[2018-12-26] MEDS ORDERED: DULOXETINE HCL 30 MG DELAYED RELEASE PO SCH (09:00)
--- NOTE | 2018-12-28 03:37 | Discharge Summary ---
HOSPITAL COURSE: See also electronic medical record. This patient was hospitalized through the emergency room. Per ER physician, Dr. Crump, see ER notes as recommended. The patient was brought in and complained of nausea, vomiting, and diarrhea. She had trace elevation in troponin. Database was obtained and monitored. Initially ER administered IV fluids, which were later stopped as the patient has history of congestive heart failure. She was treated symptomatically. Database was monitored. She was kindly reassessed by her mission assessment specialist while here. The patient was monitored while here in the intermediate care unit. The patient had a course of progressive improvement. Prior to admission, medicines were reinitiated and tolerated. Adjusted as needed based on vital signs. The patient declined any interventional therapy as she had previously. See also serial orders. Ultimately, the patient was stable enough to return for home care. She has also been under the guidance of adult protective service and she was followed by social service here. See social service notes and plans. FINAL IMPRESSION: Acute gastroenteritis, improved. Multiple chronic illnesses as listed per history and physical. Generalized atherosclerosis with stable aneurysms reassessed by CT imaging here. See reports. Congestive heart failure. Chronic obstructive pulmonary disease. Personality disorder and mood disorder. Psychiatry was asked to reassess while here. See prior Psychiatry notes and orders. See discharge med reconciliation list please. The patient was counseled to return to clinic within 1 week for close followup. Problems have included also degenerative joint disease with multiple prior surgeries to the lumbosacral spine and chronic pain. Control medically with opiate analgesics chronically. Prognosis is guarded. MD IRVIN Varela/LISAL /[id number]
== END 2018-12-25 17:28 | disposition home or self-care (01) ==
LOC: ER 12:13 → ERHOLD 17:06 → IMCU 23:14
PROVIDERS: ADMIT Internal Medicine; ATTEND Internal Medicine
DX: A08.4 Viral intestinal infection, unspecified (principal); N39.0 Urinary tract infection, site not specified; I16.9 Hypertensive crisis, unspecified; I11.0 Hypertensive heart disease with heart failure; Z86.73 Personal history of transient ischemic attack (TIA), and cerebral infarction without residual deficits; M54.9 Dorsalgia, unspecified; J44.9 Chronic obstructive pulmonary disease, unspecified; I73.9 Peripheral vascular disease, unspecified; F29 Unspecified psychosis not due to a substance or known physiological condition; F60.9 Personality disorder, unspecified; K29.70 Gastritis, unspecified, without bleeding; K27.9 Peptic ulcer, site unspecified, unspecified as acute or chronic, without hemorrhage or perforation; Z72.0 Tobacco use; I71.2 Thoracic aortic aneurysm, without rupture; H91.93 Unspecified hearing loss, bilateral; H93.19 Tinnitus, unspecified ear; H66.93 Otitis media, unspecified, bilateral; J32.9 Chronic sinusitis, unspecified; I50.9 Heart failure, unspecified; I25.10 Atherosclerotic heart disease of native coronary artery without angina pectoris; Z95.5 Presence of coronary angioplasty implant and graft; M25.572 Pain in left ankle and joints of left foot; I71.4 Abdominal aortic aneurysm, without rupture; F43.23 Adjustment disorder with mixed anxiety and depressed mood; F03.91 Unspecified dementia, unspecified severity, with behavioral disturbance
CPT/HCPCS: 36415 ×2; 71045; 74176; 80053 ×2; 80061; 81001; 82550 ×2; 82553 ×2; 83605; 83690; 83880; 84443; 84484 ×2; 85014; 85018; 85025 ×2; 87045; 87493; 93005; 93306; 99284; G0378 ×2; J0696; J7030; Q9967

== ENCOUNTER 2019-01-02 07:53 | Emergency (ER) | payer MEDICARE, BC ==
[~2019-01-02] VITALS: Ht 170.2 cm; Wt 64.0 kg
[~2019-01-02 07:53] MED LIST changes: +NORCO 7.5-3251 EACH PO
--- OUTSIDE RECORDS SUMMARY | 2019-01-02 07:56 | XMS REPORT | Clinical Summary ---
Author Author ANTHONY [facility] Address Unknown Phone Unavailable Care Team Providers Care Tobacco Cloth Reclaimer Name Role Phone Kyle Mora MD PCP [...] Diabetes mellitus 07/18/2017 CAD (coronary artery disease), [place] coronary artery (4 stents before 07/18/20172011) S/P [...] Not on file Results Not on fileafter 01/01/2018 Insurance Payer Benefit Subscriber ID Type Phone Address Plan / Group MEDICARE MEDICARE A xxxxxxxxxxx Medicare B Advance Directives For more information, please contact: [facility] [address] [place] [id number] Date Inactivated Comments Code Status Date Activated 07/21/2017 11:44 PM Full Code 07/18/2017 2:49 PM This code status was determined by: Patient 03/28/2013 1:55 PM All possible means of support, including: cardiac massage, mechanical ventilation, and defibrillation will be used to support life. Code ONE 03/25/2013 11:11 AM
--- OUTSIDE RECORDS SUMMARY | 2019-01-02 07:56 | XMS REPORT | Continuity of Care Document ---
Author Author [facility] Interface Address Unknown Phone Unavailable Problems Problem Status Onset Date Classification Date Reported Comments Source Ankle sprain Active 01/12/2016 Problem 12/25/2018 [facility] Chest pain Active 01/12/2016 Problem 12/25/2018 [facility] Near syncope Active 01/12/2016 Problem 12/25/2018 [facility] Hypokalemia Active 04/15/2015 Problem 12/25/2018 [facility] Dehydration Active 01/23/2015 Problem 12/25/2018 [facility] Diverticulitis Active 01/23/2015 Problem 12/25/2018 [facility] Vomiting and diarrhea Active 01/23/2015 Problem 12/25/2018 [facility] 719.47 - JOINT PAIN-ANKL Active 12/11/2012 JADEN Matthews CHF Active Problem 12/25/2018 [facility] Pneumonia Active Problem 12/25/2018 [facility] Pneumonia of left lower lobe due to infectious organism Active Problem 12/25/2018 [facility] UTI Active Problem 12/25/2018 [facility] Medications Medication Details Route Status Patient Instructions Ordering Provider Order Date Source Metoprolol Tartrate 100 Mg Tablet, 100 Mg Oral Daily Active 12/24/2018 [facility] Calcium Carbonate 500 Mg Tab Three Times A Day Active Alejo 01/25/2016 [facility] Divalproex Sodium 250 Mg Tabdr...er Every 12 Hours Active Alejo 01/25/2016 [facility] Famotidine (Pepcid) 20 Mg Tablet Twice Daily Before Meals Active Alejo 01/25/2016 [facility] Metoprolol Tartrate (Lopressor) 25 Mg Tab Every 12 Hours Active [facility] 01/25/2016 [facility] Risperidone (Risperdal) 0.5 Mg Tablet Three Times A Day Active [facility] 01/25/2016 [facility] Sennosides (Senokot) 8.6 Mg Tablet Twice A Day Active [facility] 01/25/2016 [facility] Acetaminophen With Codeine (Tylenol With Codeine #3 Tablet) 1 Each Tablet, 300 Mg Oral Every 6 Hours for Pain Active 01/25/2016 [facility] Carisoprodol (Soma) 350 Mg Tablet, Active 01/25/2016 [facility] Temazepam 15 Mg Capsule, 30 Mg Oral Bedtime Active 01/25/2016 [facility] Metoprolol Tartrate (Lopressor) 25 Mg Tab, 12.5 Mg Oral Every 12 Hours Active [facility] 01/25/2016 [facility] Clonidine Hcl 0.1 Mg Tablet Daily Active [facility] Clopidogrel Bisulfate (Plavix) 75 Mg Tablet Daily Active [facility] Doxycycline Hyclate 100 Mg Capsule Daily Active [facility] Hydrocodone Bit/Acetaminophen (Anexsia 7.5/325 Mg Tablet) [address] [facility] Losartan Potassium 100 Mg Tablet Daily Active [facility] Metoprolol Tartrate 100 Mg Tablet Daily Active [facility] Prednisone 10 Mg Tab Active take 4 tablets every day for 3 days, then take 3 tablets every day for 3 days, then take 2 tablets every day for 3 days, then take 1 tablet for [address] [facility] Zolpidem Tartrate (Ambien*) [address] [facility] Hydrocodone Bit/Acetaminophen ([place] 7.5-325 Tablet) 1 Each Tablet Every [address] [facility] Allergies, Adverse Reactions, Alerts Substance Category Reaction Severity Reaction type Status Date Reported Comments Source Iodine Unknown Allergy to Substance Active 08/21/2018 [facility] Iodine and Iodide Containing Produc UNKNOWN Unknown Allergy to Substance Active 12/24/2018 [facility] Immunizations Immunization Date Given Site Status Last Updated Comments Source Results Order Name Results Value Reference Range Date Interpretation Comments Source Blood hemoglobin measurement (moles/volume) 10.8 12.0 - 16.0 12/25/2018 [facility] Automated blood hematocrit (volume fraction) 32.7 34.2 - 44.1 12/25/2018 [facility] Serum or plasma creatine kinase measurement (enzymatic activity/volume) 56 29 - 168 12/25/2018 [facility] Serum or plasma creatine kinase MB measurement (mass/volume) 1.00 0 - 5.0 12/25/2018 [facility] Troponin I measurement by highly sensitive enzyme immunoassay 0.291 0 - 0.300 12/25/2018 [facility] Blood leukocytes automated count (number/volume) 7.07 4.8 - 10.8 12/25/2018 [facility] Blood erythrocytes automated count (number/volume) 3.46 3.6 - 5.1 12/25/2018 [facility] Automated erythrocyte mean corpuscular volume 100.9 81 - 99 12/25/2018 [facility] Automated erythrocyte mean corpuscular hemoglobin (mass per erythrocyte) 32.7 28 - 32 12/25/2018 [facility] Automated erythrocyte mean corpuscular hemoglobin concentration measurement (mass/volume) 32.4 31 - 35 12/25/2018 [facility] RDW BldCo-Rto 14.8 11.7 - 14.4 12/25/2018 [facility] Automated blood platelet count (count/volume) 172 140 - 360 12/25/2018 [facility] Automated blood segmented neutrophil count as percentage of total leukocytes 60.7 38.7 - 80.0 12/25/2018 [facility] Automated blood lymphocyte count as percentage ot total leukocytes 26.0 18.0 - 39.1 12/25/2018 [facility] Automated blood monocyte count as percentage of total leukocytes 9.1 4.4 - 11.3 12/25/2018 [facility] Automated blood eosinophil count as percentage of total leukocytes 3.4 0.0 - 6.0 12/25/2018 [facility] Automated blood basophil count as percentage of total leukocytes 0.7 0.0 - 1.0 12/25/2018 [facility] IM GRANULOCYTES % 0.1 0.0 - 1.0 12/25/2018 [facility] Automated blood neutrophil count 4.3 2.1 - 6.9 12/25/2018 [facility] Blood lymphocytes count (number/volume) 1.8 1.0 - 3.2 12/25/2018 [facility] Blood monocytes automated count (number/volume) 0.6 0.2 - 0.8 12/25/2018 [facility] Automated blood eosinophil count 0.2 0.0 - 0.4 12/25/2018 [facility] Automated blood basophil count (count/volume) 0.1 0.0 - 0.1 12/25/2018 [facility] Absolute Immature Granulocyte (auto 0.01 0 - 0.1 12/25/2018 [facility] Serum or plasma sodium measurement (moles/volume) 136 136 - 145 12/25/2018 [facility] Serum or plasma potassium measurement (moles/volume) 3.3 3.5 - 5.1 12/25/2018 [facility] Serum or plasma chloride measurement (moles/volume) 110 98 - 107 12/25/2018 [facility] Serum or plasma carbon dioxide, total measurement (moles/volume) 17 22 - 29 12/25/2018 [facility] Serum or plasma anion gap 12.3 8 - 16 12/25/2018 [facility] Serum or plasma urea nitrogen measurement (mass/volume) 12 7 - 26 12/25/2018 [facility] Serum or plasma creatinine measurement (mass/volume) 0.87 0.57 - 1.11 12/25/2018 [facility] Serum or plasma urea nitrogen/creatinine mass ratio 14 6 - 25 12/25/2018 [facility] Estimated glomerular filtration rate (GFR) determination > 60 60 12/25/2018 [facility] Glucose measurement 106 74 - 118 12/25/2018 [facility] Serum or plasma calcium measurement (mass/volume) 8.4 8.4 - 10.2 12/25/2018 [facility] Serum or plasma total bilirubin measurement (mass/volume) 0.5 0.2 - 1.2 12/25/2018 [facility] Aspartate Amino Transf (AST/SGOT) 12 5 - 34 12/25/2018 [facility] Serum or plasma alanine aminotransferase measurement (enzymatic activity/volume) 7 0 - 55 12/25/2018 [facility] Serum or plasma protein measurement (mass/volume) 6.0 6.5 - 8.1 12/25/2018 [facility] Serum or plasma albumin measurement (mass/volume) 2.9 3.5 - 5.0 12/25/2018 [facility] Plasma globulin measurement (mass/volume) 3.1 2.3 - 3.5 12/25/2018 [facility] Serum or plasma albumin/globulin mass ratio 0.9 0.8 - 2.0 12/25/2018 [facility] Serum or plasma alkaline phosphatase measurement (enzymatic activity/volume) 63 40 - 150 12/25/2018 [facility] Serum or plasma triglyceride measurement (mass/volume) 133 0 - 149 12/25/2018 [facility] Serum or plasma cholesterol measurement (mass/volume) 167 0 - 199 12/25/2018 [facility] Serum or plasma cholesterol in LDL measurement (mass/volume) 98 60 - 130 12/25/2018 [facility] Serum or plasma cholesterol in HDL measurement (mass/volume) 42 40 - 60 12/25/2018 [facility] Serum or plasma total cholesterol/cholesterol in HDL mass ratio 4.0 3.0 - 3.6 12/25/2018 [facility] Serum or plasma thyrotropin measurement by detection limit <=0.005 miu/l (units/volume) 1.136 0.350 - 4.940 12/25/2018 [facility] Urine color determination YELLOW YELLOW 12/24/2018 [facility] Urine clarity SL CLOUDY CLEAR 12/24/2018 [facility] Specific gravity of Urine by Test strip 1.025 1.010 - 1.025 12/24/2018 [facility] Urine pH measurement by automated test strip 5 5 - 7 12/24/2018 [facility] Urine leukocyte esterase detection by dipstick TRACE NEGATIVE 12/24/2018 [facility] Urine nitrite detection NEGATIVE NEGATIVE 12/24/2018 [facility] Urine protein measurement by test strip (mass/volume) 2+ NEGATIVE 12/24/2018 [facility] Urine glucose detection NEGATIVE NEGATIVE 12/24/2018 [facility] Urine ketones detection by automated test strip NEGATIVE NEGATIVE 12/24/2018 [facility] Urine urobilinogen measurement by test strip (mass/volume) 0.2 0.2 - 1 12/24/2018 [facility] Urine total bilirubin measurement (mass/volume) 1+ NEGATIVE 12/24/2018 [facility] Urine erythrocytes detection TRACE NEGATIVE 12/24/2018 [facility] Automated urine sediment leukocyte count by microscopy (number/high power field) 11-20 0 - 5 12/24/2018 [facility] Erythrocytes detection in urine sediment by light microscopy 6-10 0 - 5 12/24/2018 [facility] Bacteria detection in urine sediment by light microscopy MANY NONE 12/24/2018 [facility] Epithelial cells detection in urine sediment by light microscopy MODERATE NONE 12/24/2018 [facility] Amorphous sediment detection in urine sediment by light microscopy MODERATE FEW 12/24/2018 [facility] Mucus detection in urine sediment by light microscopy FEW RARE 12/24/2018 [facility] Lactic Acid Level 15.9 4.5 - 19.8 12/24/2018 [facility] BNP Bld-[facility] 1828.3 0 - 100 12/24/2018 [facility] Serum or plasma lipase measurement (enzymatic activity/volume) 14 8 - 78 12/24/2018 [facility] Urine color determination YELLOW YELLOW 04/12/2018 [facility] Urine clarity HAZY CLEAR 04/12/2018 [facility] Specific gravity of Urine by Test strip 1.025 1.010 - 1.025 04/12/2018 [facility] Urine pH measurement by automated test strip 6 5 - 7 04/12/2018 [facility] Urine leukocyte esterase detection by dipstick TRACE NEGATIVE 04/12/2018 [facility] Urine nitrite detection NEGATIVE NEGATIVE 04/12/2018 [facility] Urine protein measurement by test strip (mass/volume) 1+ NEGATIVE 04/12/2018 [facility] Urine glucose detection NEGATIVE NEGATIVE 04/12/2018 [facility] Urine ketones detection by automated test strip 1+ NEGATIVE 04/12/2018 [facility] Urine urobilinogen measurement by test strip (mass/volume) 0.2 0.2 - 1 04/12/2018 [facility] Urine total bilirubin measurement (mass/volume) 2+ NEGATIVE 04/12/2018 [facility] Urine erythrocytes detection TRACE NEGATIVE 04/12/2018 [facility] Automated urine sediment leukocyte count by microscopy (number/high power field) 6-10 0 - 5 04/12/2018 [facility] Erythrocytes detection in urine sediment by light microscopy 6-10 0 - 5 04/12/2018 [facility] Bacteria detection in urine sediment by light microscopy FEW NONE 04/12/2018 [facility] Epithelial cells detection in urine sediment by light microscopy MODERATE NONE 04/12/2018 [facility] Hyaline casts detection in urine sediment by light microscopy 2-5 0 - 1 04/12/2018 [facility] Hyaline casts detection in urine sediment by light microscopy 2-5 0 - 1 04/12/2018 [facility] Blood leukocytes automated count (number/volume) 7.91 4.8 - 10.8 04/12/2018 [facility] Blood erythrocytes automated count (number/volume) 3.98 3.6 - 5.1 04/12/2018 [facility] Blood hemoglobin measurement (moles/volume) 12.2 12.0 - 16.0 04/12/2018 [facility] Automated blood hematocrit (volume fraction) 37.2 34.2 - 44.1 04/12/2018 [facility] Automated erythrocyte mean corpuscular volume 93.5 81 - 99 04/12/2018 [facility] Automated erythrocyte mean corpuscular hemoglobin (mass per erythrocyte) 30.7 28 - 32 04/12/2018 [facility] Automated erythrocyte mean corpuscular hemoglobin concentration measurement (mass/volume) 32.8 31 - 35 04/12/2018 [facility] RDW BldCo-Rto 14.6 11.7 - 14.4 04/12/2018 [facility] Automated blood platelet count (count/volume) 329 140 - 360 04/12/2018 [facility] Automated blood segmented neutrophil count as percentage of total leukocytes 43.4 38.7 - 80.0 04/12/2018 [facility] Automated blood lymphocyte count as percentage ot total leukocytes 40.1 18.0 - 39.1 04/12/2018 [facility] Automated blood monocyte count as percentage of total leukocytes 8.6 4.4 - 11.3 04/12/2018 [facility] Automated blood eosinophil count as percentage of total leukocytes 6.3 0.0 - 6.0 04/12/2018 [facility] Automated blood basophil count as percentage of total leukocytes 1.3 0.0 - 1.0 04/12/2018 [facility] IM GRANULOCYTES % 0.3 0.0 - 1.0 04/12/2018 [facility] Automated blood neutrophil count 3.4 2.1 - 6.9 04/12/2018 [facility] Blood lymphocytes count (number/volume) 3.2 1.0 - 3.2 04/12/2018 [facility] Blood monocytes automated count (number/volume) 0.7 0.2 - 0.8 04/12/2018 [facility] Automated blood eosinophil count 0.5 0.0 - 0.4 04/12/2018 [facility] Automated blood basophil count (count/volume) 0.1 0.0 - 0.1 04/12/2018 [facility] Absolute Immature Granulocyte (auto 0.02 0 - 0.1 04/12/2018 [facility] Prothrombin time (PT) in platelet poor plasma by coagulation assay 12.9 11.9 - 14.5 04/12/2018 [facility] INR in Platelet poor plasma by Coagulation assay 1.05 04/12/2018 [facility] Activated partial thromboplastin time (aPTT) in platelet poor plasma bycoagulation assay 35.4 23.8 - 35.5 04/12/2018 [facility] Serum or plasma sodium measurement (moles/volume) 140 136 - 145 04/12/2018 [facility] Serum or plasma potassium measurement (moles/volume) 2.9 3.5 - 5.1 04/12/2018 [facility] Serum or plasma chloride measurement (moles/volume) 104 98 - 107 04/12/2018 [facility] Serum or plasma carbon dioxide, total measurement (moles/volume) 21 22 - 29 04/12/2018 [facility] Serum or plasma anion gap 17.9 8 - 16 04/12/2018 [facility] Serum or plasma urea nitrogen measurement (mass/volume) 12 7 - 26 04/12/2018 [facility] Serum or plasma creatinine measurement (mass/volume) 0.94 0.57 - 1.11 04/12/2018 [facility] Serum or plasma urea nitrogen/creatinine mass ratio 13 6 - 25 04/12/2018 [facility] Estimated glomerular filtration rate (GFR) determination 58 60 04/12/2018 [facility] Glucose measurement 91 74 - 118 04/12/2018 [facility] Serum or plasma calcium measurement (mass/volume) 9.4 8.4 - 10.2 04/12/2018 [facility] Serum or plasma magnesium measurement (mass/volume) 1.7 1.3 - 2.1 04/12/2018 [facility] Serum or plasma total bilirubin measurement (mass/volume) 0.5 0.2 - 1.2 04/12/2018 [facility] Aspartate Amino Transf (AST/SGOT) 20 5 - 34 04/12/2018 [facility] Serum or plasma alanine aminotransferase measurement (enzymatic activity/volume) 23 0 - 55 04/12/2018 [facility] Serum or plasma protein measurement (mass/volume) 8.0 6.5 - 8.1 04/12/2018 [facility] Serum or plasma albumin measurement (mass/volume) 3.6 3.5 - 5.0 04/12/2018 [facility] Plasma globulin measurement (mass/volume) 4.4 2.3 - 3.5 04/12/2018 [facility] Serum or plasma albumin/globulin mass ratio 0.8 0.8 - 2.0 04/12/2018 [facility] Serum or plasma alkaline phosphatase measurement (enzymatic activity/volume) 132 40 - 150 04/12/2018 [facility] BNP Bld-mCnc 1672.8 0 - 100 04/12/2018 [facility] Serum or plasma creatine kinase measurement (enzymatic activity/volume) 58 29 - 168 04/12/2018 [facility] Serum or plasma creatine kinase MB measurement (mass/volume) 1.10 0 - 5.0 04/12/2018 [facility] Troponin I measurement by highly sensitive enzyme immunoassay 0.046 0 - 0.300 04/12/2018 [facility] Blood culture NO GROWTH AFTER 5 DAYS, FINAL REPORT 04/12/2018 [facility] Prothrombin time (PT) in platelet poor plasma by coagulation assay 12.9 11.9 - 14.5 04/12/2018 [facility] INR in Platelet poor plasma by Coagulation assay 1.05 04/12/2018 [facility] Activated partial thromboplastin time (aPTT) in platelet poor plasma bycoagulation assay 35.4 23.8 - 35.5 04/12/2018 [facility] Serum or plasma magnesium measurement (mass/volume) 1.7 1.3 - 2.1 04/12/2018 [facility] Serum or plasma trough vancomycin level at trough (mass/volume) 22.9 5.0 - 10.0 03/29/2018 [facility] Serum or plasma trough vancomycin level at trough (mass/volume) 22.9 5.0 - 10.0 03/29/2018 [facility] Random serum or plasma vancomycin measurement (mass/volume) 17.5 03/28/2018 [facility] Random serum or plasma vancomycin measurement (mass/volume) 17.5 03/28/2018 [facility] Serum or plasma triglyceride measurement (mass/volume) 160 0 - 149 03/26/2018 [facility] Serum or plasma cholesterol measurement (mass/volume) 188 0 - 199 03/26/2018 [facility] Serum or plasma cholesterol in LDL measurement (mass/volume) 118 60 - 130 03/26/2018 [facility] Serum or plasma cholesterol in HDL measurement (mass/volume) 38 40 - 60 03/26/2018 [facility] Serum or plasma total cholesterol/cholesterol in HDL mass ratio 4.9 3.0 - 3.6 03/26/2018 [facility] Serum or plasma thyrotropin measurement by detection limit <=0.005 miu/l (units/volume) 0.750 0.350 - 4.940 03/26/2018 [facility] Serum or plasma amylase measurement (enzymatic activity/volume) 71 25 - 125 03/22/2018 [facility] Serum or plasma lipase measurement (enzymatic activity/volume) 6 8 - 78 03/22/2018 [facility] Serum or plasma amylase measurement (enzymatic activity/volume) 71 25 - 125 03/22/2018 [facility] Bacteria identification in sputum by respiratory culture Organism: STAPHYLOCOCCUS AUREUS-MRSA 03/22/2018 [facility] Lactic Acid Level 10.6 4.5 - 19.8 03/22/2018 [facility] Fibrin D-dimer DDU measurement in platelet poor plasma (mass/volume) 2.18 0.00 - 0.45 03/22/2018 [facility] Clostridium difficile A and B toxin assay NEGATIVE NEGATIVE [facility] Vital Signs Vital Sign Value Date Comments Source Encounters Location Location Details Encounter Type Encounter Number Reason For Visit Attending Provider ADM Date DC Date Status Source OD [id number] 719.47 - JOINT PAIN-ANKL ARNOLD KILGORE 12/11/2012 12/11/2012 Active [facility] [place] Discharged Inpatient [id number] LAN SOLORIO MD 03/22/2018 03/29/2018 [facility] Departed Emergency Room [id number] TOMER FRAUSTO MD 04/12/2018 04/13/2018 [facility] Departed Emergency Room [id number] TOMER FRAUSTO MD 08/21/2018 08/21/2018 [facility] Discharged Inpatient (obs) [id number] LAN SOLORIO MD 12/24/2018 12/25/2018 [facility] Procedures Procedure Code Date Perfomer Comments Source CT of abdomen and pelvis without contrast [id number] 12/24/[address] [facility] X-ray of chest, two views [id number] 04/12/[address] [facility] EXCISION OF DUODENUM, ENDO, DIAGN [id number] 03/25/[address] [facility] EXCISION OF STOMACH, PYLORUS, ENDO, DIAGN [id number] 03/25/2018 [facility] EXCISION OF ESOPHAGOGASTRIC JUNCTION, ENDO, DIAGN [id number] 03/25/2018 [facility] Computed tomography of chest without contrast [id number] 03/24/2018 [facility] INSERTION OF INFUSION DEV INTO SUP VENA CAVA, PERC APPROACH [id number] 03/23/2018 [facility]
[2019-01-02 08:36] LABS: CLARITY,URINE CLOUDY (CLEAR); COLOR,URINE YELLOW (YELLOW)
[2019-01-02 08:37] LABS: AMORPHOUS SEDIMENT,URINE FEW (FEW); BACTERIA,URINE MANY /HPF; BILIRUBIN,URINE NEGATIVE (NEGATIVE); EPITHELIAL CELLS,URINE MANY /LPF; KETONES,URINE NEGATIVE (NEGATIVE); LEUKOCYTE ESTERASE ,URINE NEGATIVE (NEGATIVE); NITRITE,URINE POSITIVE (NEGATIVE); PROTEIN,URINE DIPSTICK 2+ (NEGATIVE); URINE UROBILINOGEN 1 mg/dL (0.2 - 1); WBC,URINE (MAN) 21-50 /HPF (0-5)
== END 2019-01-02 08:57 | disposition home or self-care (01) ==
LOC: ER 07:53
DX: R10.11 Right upper quadrant pain (principal); R11.0 Nausea; N30.91 Cystitis, unspecified with hematuria; K59.00 Constipation, unspecified; J30.2 Other seasonal allergic rhinitis
CPT/HCPCS: 81001; 87086; 87186; 99284

== ENCOUNTER 2019-01-03 05:43 | Inpatient (IN) | payer MEDICARE, BC ==
[~2019-01-03] VITALS: Ht 170.2 cm; Wt 69.9 kg
--- OUTSIDE RECORDS SUMMARY | 2019-01-03 05:46 | XMS REPORT | Clinical Summary ---
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 Name Role Phone Kyle Mora MD [...] Diabetes mellitus 07/18/2017 CAD (coronary artery disease), [place] coronary artery (4 stents before 07/18/20172011) S/P [...] Not on file Results Not on fileafter 01/02/2018 Insurance Payer Benefit Subscriber ID Type Phone Address Plan / Group MEDICARE MEDICARE A xxxxxxxxxxx Medicare B Advance Directives For more information, please contact: [facility] [address] [place] [id number] Date Inactivated Comments Code Status Date Activated 07/21/2017 11:44 PM Full Code 07/18/2017 2:49 PM This code status was determined by: Patient 03/28/2013 1:55 PM All possible means of support, including: cardiac massage, mechanical ventilation, and defibrillation will be used to support life. Code ONE 03/25/2013 11:11 AM
[2019-01-03] MEDS ORDERED: ASPIRIN 81 MG CHEW TAB PO ONE ×2 (06:30→07:00)
[2019-01-03] MEDS ORDERED: NITROGLYCERIN 2% OINT 1 GM PKT TOP SCH (06:30)
--- OUTSIDE RECORDS SUMMARY | 2019-01-03 06:53 | XMS REPORT | Clinical Summary ---
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 Code ONE 03/25/2013 11:11 AM
[2019-01-03 06:55] LABS: BASOPHILS # (AUTO) 0.1 (0.0-0.1); BASOPHILS % 0.9 % (0.0-1.0); EOSINOPHILS # (AUTO) 0.2 (0.0-0.4); EOSINOPHILS % 2.5 % (0.0-6.0); HEMATOCRIT 32.7 % (34.2-44.1); HEMOGLOBIN 10.7 g/dL (12.0-16.0); LYMPHOCYTES # (AUTO) 1.6 (1.0-3.2); LYMPHOCYTES % 20.6 % (18.0-39.1); MEAN CORPUSCULAR HEMOGLOBIN 32.9 pg (28-32); MEAN CORPUSCULAR HGB CONC 32.7 g/dL (31-35); MEAN CORPUSCULAR VOLUME 100.6 fL (81-99); MONOCYTES # (AUTO) 0.9 (0.2-0.8); MONOCYTES % 12.1 % (4.4-11.3); NEUTROPHILS # (AUTO) 4.8 (2.1-6.9); NEUTROPHILS % 63.2 % (38.7-80.0); PLATELET COUNT 193 x10e3/uL (140-360); RED BLOOD COUNT 3.25 x10e6/uL (3.6-5.1); RED CELL DISTRIBUTION WIDTH 14.9 % (11.7-14.4)
[2019-01-03 06:59] LABS: ALBUMIN 3.2 g/dL (3.5-5.0); ANION GAP 14.6 mmol/L (8-16); CALCIUM 9.3 mg/dL (8.4-10.2); CREATININE, SERUM 1.17 mg/dL (0.57-1.11); POTASSIUM 4.6 mmol/L (3.5-5.1)
[2019-01-03 07:01] LABS: CREATINE KINASE MB 10.4 ng/mL (0-5.0)
--- NOTE | 2019-01-03 07:06 | Diagnostic Imaging Report ---
EXAMINATION: CHEST SINGLE (PORTABLE) INDICATION: ^CHEST PAIN ^Y COMPARISON: 12/24/2018 FINDINGS: AP view TUBES and LINES: None. LUNGS: Lungs are well inflated. Pulmonary vascular congestion and suspected mild interstitial edema. PLEURA: No significant pleural effusion or pneumothorax. HEART AND MEDIASTINUM: Again seen markedly prominent aortic arch. There is increased thickening of the right paratracheal stripe. The cardiac silhouette is enlarged. BONES AND SOFT TISSUES: No acute osseous lesion. Soft tissues are unremarkable. UPPER ABDOMEN: No free air under the diaphragm. IMPRESSION: Again seen marked enlargement of the aortic arch, consistent with history of aneurysm. Increased thickening of the right paratracheal stripe in this patient with thoracic aortic aneurysm and chest pain. Chest CTA can be obtained to exclude complications such as rupture. Pulmonary vascular congestion and mild interstitial edema. Signed by: Dr. Agusto Boyer MD on 01/03/2019 7:03 AM
[2019-01-03 07:17] LABS: INR 1.08; PROTHROMBIN TIME 14.5 seconds (11.9-14.5)
[2019-01-03] MEDS ORDERED: CLOPIDOGREL BISULFATE 300 MG TAB-DO NOT STOCK PO NR (08:15)
[2019-01-03] MEDS: CLOPIDOGREL BISULFATE 75 MG TAB PO SCH (08:20)
[2019-01-03] MEDS: SODIUM CHLORIDE 0.9% 1000ML 1,000 ML IV SCH (08:20)
[2019-01-03 08:26] VITALS: BP 135/94
[2019-01-03 08:38] VITALS: BP 98/56
--- NOTE | 2019-01-03 08:40 | NUR ---
Dr Queen here to see patient at this time. NPO for possible heart cath.
[2019-01-03] MEDS ORDERED: HYDROCORTISONE SOD SUCCINATE 100 MG VIAL IV NR (09:15)
[2019-01-03] MEDS ORDERED: DIPHENHYDRAMINE HCL INJ 50 MG/ML VIAL IV NR (09:15)
[2019-01-03] MEDS: ASPIRIN 81 MG ENTERIC COATED PO SCH (09:30)
[2019-01-03] MEDS ORDERED: CLOPIDOGREL BISULFATE 75 MG TAB PO NR (09:45)
[2019-01-03] MEDS ORDERED: LIDOCAINE HCL 2% LOCAL 20 ML VIAL ONE (10:03)
[2019-01-03] MEDS ORDERED: HEPARIN SOD/SOD CHLORIDE 2,000 ML ONE (10:03)
[2019-01-03] MEDS ORDERED: HEPARIN SOD (PORCINE) 1000 UNIT/ML 30ML ONE (10:06)
[2019-01-03] MEDS ORDERED: MIDAZOLAM HCL 2 MG/2 ML VIAL ONE (10:06)
[2019-01-03] MEDS ORDERED: FENTANYL CITRATE/PF 100MCG/2 ML INJ ONE (10:07)
[2019-01-03] MEDS ORDERED: NITROGLYCERIN/D5W 200 MCG/ML 250 ML ONE (10:07)
[2019-01-03] MEDS ORDERED: SODIUM CHLORIDE 0.9% 1000ML 1,000 ML ONE (10:07)
--- NOTE | 2019-01-03 10:17 | NUR ---
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
[2019-01-03] MEDS ORDERED: IOPAMIDOL 370 MG/ML 200 ML INFUS..BTL INJ ONE ×2 (10:32→11:05)
[2019-01-03] MEDS ORDERED: BIVALRIUDIN 250 MG/VIAL VIAL IV ONE (10:56)
[2019-01-03] MEDS ORDERED: SODIUM CHLORIDE 0.9% 50ML 50 ML ONE (10:57)
--- NOTE | 2019-01-03 12:08 | NUR ---
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 right groin insertion site soft with no hematoma present. vitals stable with no distress. Dr Hatfield consulted per Dr Carver.
[2019-01-03 12:09] VITALS: BP 142/90
[2019-01-03 12:12] LABS: FOLATE 9.5 ng/mL (7.0-15.4)
[2019-01-03] MEDS: LOSARTAN POTASSIUM 100 MG TAB PO SCH (13:39)
[2019-01-03] MEDS: HYDROCODONE/APAP 7.5MG-325MG 1 EA TAB PO PRN ×2 (13:40→20:23)
--- NOTE | 2019-01-03 13:40 | NUR ---
losartan given because BP starting to rise post cath. medicated with norco for back pain.
--- NOTE | 2019-01-03 15:16 | History and Physical ---
HISTORY OF PRESENT ILLNESS: The patient presented to the emergency room. I have not been called prior to her arriving. She had not called in advance of leaving her home. Generally, she calls 911. The patient has a history of mood disorder and was seen by her psychiatrist here last month. See notes. Prior psychiatric impressions have been psychosis and dementia. The patient has been refusing meds. The patient had multiple problems she states. She was here yesterday for similar symptoms, vague in nature. She was here in November, see admission notes at that time. See discharge notes then. The patient is a very poor historian. At this time, she denies headache or visual change. She had noted some chest pain last night when I spoke to the emergency room physician. The patient has COPD and has had chronic shortness of breath as well as congestive heart failure and she states she is not short of breath at this time. She does note some upper respiratory congestion and history has included chronic allergic rhinosinusitis and otitis media. The patient has had chronic extremely poor hearing and was seen by her digital sales assistant here last month. She states she did not follow up there as an outpatient as she was requested to do. She has had ear tubes in the past. The patient had related yesterday abdominal discomfort and constipation. EGD here on March 25, 2018, revealed duodenal ulcer and gastritis. Prior CTs have revealed thoracic aneurysm as well as a 4.3 cm infrarenal aneurysm as well as diverticulosis on December 24, 2018, she reports. The patient denies symptoms related to her extremities, although she is transferring, she is not ambulating and using wheelchair. Her son recently and she has been here multiple times since then. She has declined higher level of care as an outpatient previously. When the patient was here in November, she was treated for pyuria. Suspected UTI. Acute gastroenteritis then in November. On the patient's multiple several admissions, she has refused recommended invasive evaluation or treatments. The patient has a history of allergy to codeine and current chart indicates iodine allergy. The patient is very vague regarding her knowledge of any allergy history. PAST SURGICAL HISTORY: Has included tonsillectomy, cholecystectomy, bilateral tubal ligation, cataracts, and tubes for otitis. FAMILY HISTORY: Father from a fire. Mother and has had two MIs. PHYSICAL EXAMINATION: VITAL SIGNS: Temperature 98.7, pulse 63 and regular, respiratory rate 22, and BP 135/94. O2 saturation on 2 L O2 is 100%. Sensorium is baseline. The patient is very hard of hearing and intermittently agitated. GENERAL: She is in no respiratory distress. HEENT: Pupils poorly react. EOMs full. No icterus or pallor. Throat clear. TMs distorted. Retracted. Scarred. NECK: Flexes, carotids palpable. No palpable goiter. PULMONARY: Reduced breath sounds generalized. CARDIAC: S1 and S2 were very soft. ABDOMEN: Soft. Bowel sounds are present. EXTREMITIES: Reveal markedly dampen pulses without edema or clubbing. Not cyanotic. NEUROLOGIC: Deep tendon reflexes are weak. Strength poor. BACK: Old scars over the back. The patient relates also she has had prior surgery. LABORATORY DATA: Reviewed. Hemoglobin 10.7 low with increased indices. Creatinine 1.17, CK-MB 10.4, troponin I is 6.1. CPK is normal at 148. IMAGING: Current chest x-ray is consistent with aortic arch aneurysm, vascular congestion. Interstitial edema, mild. EKG, verbal per ER physician altered. Current images not available on the EMR. To resume pre-admission regimen. Control the patient's chronic pain and hypertension. She will be undergoing angiographic studies if she consents. See also initial and followup orders. IMPRESSION: As above. Includes abnormal cardiac enzymes with history of atherosclerosis. Rule out VA. Peripheral vascular disease. History of duodenal ulcer and gastritis with recent current symptoms, problem possibly ongoing. Chronic back pain. Degenerative joint disease of L-spine. Poor hearing. Mood disorder with recent psychiatric organization development consultant's impression psychosis and dementia. Congestive heart failure, chronic LV systolic heart failure. Chronic obstructive pulmonary disease. Smokes. Primary hypertension. Recent urinary tract infection here. Chronic allergic rhinosinusitis, otitis media. Elijah Carver MD IRVIN/MODL /[id number]
--- NOTE | 2019-01-03 16:27 | Consultation ---
DATE OF CONSULTATION: 01/03/2019 Cardiac Consultation REASON FOR CONSULTATION: Myocardial infarction. HISTORY: Poorly historian, 73-year-old lady, who is known with advanced coronary artery disease, COPD, abdominal and ascending aortic aneurysm, hypertension, peripheral arterial vascular disease, psychosis, GERD, gastritis, and long-time smoker. The patient came several times to this institution. She always refused workup. During her last admission, she was having what it seems like colitis like picture. She is very poorly compliant with her medication. She does not take any medication. At that time, CT of abdomen showed 4.1. Abdominal aortic aneurysms 2018. Aortic artery is enlarged at 5.3 cm. The patient takes her medications . She came to this hospital complaining of severe abdominal and retrosternal chest pain, etc., etc. Her troponin is 6. I visited with her. She states she cannot breathe and she feels elephant sitting on her chest. She does have easy fatigability, shortness of breath on exertion, some orthopnea but no paroxysmal nocturnal dyspnea. No syncope or presyncope. REVIEW OF SYSTEMS: GENERAL: No fever, no chills. HEENT: Decreased hearing. PULMONARY: Severe shortness of breath on exertion and COPD symptoms with episodes of exacerbation. CARDIAC: As per acute illness. ABDOMEN: Abdominal aches and pain here and there. No hematemesis. No melena. G: Increased frequency of urination. NEUROLOGIC: Tremors, weakness. No seizures and anxiety. HEMATOLOGY: No bleeding, no bruising. ENDOCRINE: No heat intolerance. No polyuria. No polydipsia. No polyphagia. ALLERGIES: IODINE. HOME MEDICATIONS: She is to be on the following medication, but that is questionable about taking them including clonidine 0.1 mg b.i.d., Plavix 75 mg a day, losartan 100 mg a day, prednisone 10 mg a day. Doxycycline 100 mg a day, Pepcid 20 mg a day. Risperdal, hydrocodone, Ambien and other p.r.n. medication. ALLERGIES: IODINE. PAST MEDICAL HISTORY: Long list includin. Coronary artery disease status post prior PCI. 2. History of congestive heart failure. 3. COPD. 4. Smoker. 5. Dilated thoracic aorta and aortic arch. 6. Abdominal aortic aneurysm. 7. Psychosis. 8. Repeated UTIs. PAST SURGICAL HISTORY: 1. Back surgery as per patient x6 and rectal x2. 2. Tonsillectomy. 3. Cholecystectomy. 4. Tubal ligation. 5. Right and left cataract surgery. SOCIAL HISTORY: She lives by herself. She is a smoker. She is not an alcohol drinker. FAMILY HISTORY: Father from fire at the age of 59. Mother at the age 60 from myocardial infarction. PHYSICAL EXAMINATION: VITAL SIGNS: Height 5 feet 7 inches, weight of 152, blood pressure 130/80, heart rate of 60, respiratory rate of 18. HEENT: Decreased hearing. NECK: Bilateral carotid bruit. CHEST: Decreased air entry and increased expiratory phase. HEART: PMI 5th left intercostal space. Normal first and second heart sound. Ejection systolic murmur. ABDOMEN: Soft. No abdominal bruits. EXTREMITIES: There are no right radial pulse, but there is good right brachial pulse. Left radial is +1. On the lower extremities there are no feet pulses. NEUROLOGIC: She is able to move all her extremities. LABORATORY DATA: Sodium of 131, potassium of 4.6, BUN of 23, creatinine of 1.1, glucose of 107. White blood cell count of 7.5, hemoglobin of 10.7, hematocrit 32%, platelet count of 193,000. EKG diffuse ST-segment changes in multiple leads, which will indicate probably diffuse coronary artery disease. IMPRESSION AND PLAN: 1. Acute myocardial infarction with positive troponin 6.17. 2. Coronary artery disease. 3. Peripheral arterial vascular disease. 4. Dilated ascending aorta and abdominal aorta with abdominal aortic aneurysm at almost 4.3 cm. 5. Hypertension. 6. Chronic obstructive pulmonary disease. 7. Congestive heart failure. 8. Psychosis. 9. Dementia. 10. Allergies to iodine. Long discussion with the patient on the explanation of her cardiac catheterization. We talked to her. We explained the higher mortality, morbidity, etc. We explained the importance of operation in fact we also called her son, just to assure all the family is on board. She will be treated for iodine allergy with Solu-Cortef and Benadryl. The patient will be taken to forestry farm laborer for further step after the cardiac catheterization. MD DEBBI Tay/DILLON /[id number]
[2019-01-03] MEDS: FAMOTIDINE 20 MG TAB PO SCH (16:59)
[2019-01-03 19:00] VITALS: BP 137/86
--- NOTE | 2019-01-03 19:15 | NUR ---
Received patient from day nurse, patient is stable.
[2019-01-03 19:30] VITALS: BP 137/86
--- NOTE | 2019-01-03 20:18 | Operative Report ---
DATE OF PROCEDURE: 01/03/2019 SURGEON: Johnathan Queen MD TITLE OF PROCEDURE: 1. PCI and stenting of proximal LAD. 2. Left cardiac catheterization. INDICATION: Acute non-ST elevation myocardial infarction in the patient who is known to have congestive heart failure, severe coronary artery disease, dilated aortic root. TECHNICAL DETAILS: After the usual sterile preparation and draping procedure, intravenous Versed and fentanyl given for sedation, local xylocaine for anesthesia. A four-St Helenian sheath established in place. Shauna left 5 and modified AR1 catheter used to engage the coronary. AL1 used to close the valve into the left ventriculogram and hemodynamic measurement. A decision was made to proceed with intervention. The existing four-St Helenian sheath exchanged for six-St Helenian sheath. The guiding catheter was XB 4. Ballooning was 2 x 15, stenting was 2.5 x 15 up to 17 atmospheres. Angiomax given and the patient already loaded with Plavix. RESULTS: A. Coronary angiogram: 1. Left main, 50% disease was aneurysmal dilatation of the left main. 2. LAD 95% very proximal diseased lesion giving large sizable diagonal. There is old stenting in the LAD was totally occluded stent in that territory. 3. Circumflex coronary artery ostially occluded. 4. 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 AR1 used to engage. It is very tortuous with several loops and 70% to 80% lesion of the right coronary artery. a. Hemodynamics: Aorta pressure 120/80. LV pressure 120/36. C. Left ventriculogram in the right anterior oblique view showed markedly dilated left ventricle with an ejection fraction of 20%. IMPRESSION: 1. Very dilated aortic root and very tortuous aorta itself. 2. Left ventricular ejection fraction of 20%. 3. 50% left main aneurysmal dilatation of the distal left main. 4. 95% proximal LAD, 100% mid LAD, 500% circumflex, 6 very tortious diseased right coronary artery. PCI procedure, proximal LAD, guiding catheter six-St Helenian XB 4, balloon 2 x 15, stent 2.5 x 15, resolute drug eluted stent up to 17 atmospheres. Lesion prior to intervention at 95%, following intervention at 0%. RECOMMENDATION: Medical therapy. Discussion for the right coronary artery lesion and discussed that with the patient, this seems very complex because of the comorbid condition, probably conservative approach will be offered, but before we finalize that decision, we need to be sure that the patient is compliant with taking her medication because there is also issue of compliance. The patient's prognosis regardless is very guarded. MD DEBBI Tay/MODL /[id number]
[2019-01-03] MEDS: ATORVASTATIN 20 MG TAB PO SCH (20:22)
[2019-01-03] MEDS: RISPERIDONE 0.5 MG TAB PO PRN (21:19)
[2019-01-04] VITALS (7 sets, daily range): BP systolic 112–146; BP diastolic 16–85
[2019-01-04] MEDS: SODIUM CHLORIDE 0.9% 1000ML 1,000 ML IV SCH (00:29)
--- NOTE | 2019-01-04 01:00 | NUR ---
patient cleaned, beddings changed.
--- NOTE | 2019-01-04 04:00 | NUR ---
patient assisted to commode.
[2019-01-04] MEDS: HYDROCODONE/APAP 7.5MG-325MG 1 EA TAB PO PRN ×3 (05:25→19:11)
[2019-01-04 05:31] LABS: BASOPHILS % 0.3 % (0.0-1.0); EOSINOPHILS % 0.3 % (0.0-6.0); HEMATOCRIT 30.7 % (34.2-44.1); HEMOGLOBIN 9.8 g/dL (12.0-16.0); LYMPHOCYTES # (AUTO) 1.3 (1.0-3.2); LYMPHOCYTES % 18.7 % (18.0-39.1); MEAN CORPUSCULAR HEMOGLOBIN 32.3 pg (28-32); MEAN CORPUSCULAR HGB CONC 31.9 g/dL (31-35); MEAN CORPUSCULAR VOLUME 101.3 fL (81-99); MONOCYTES # (AUTO) 0.6 (0.2-0.8); MONOCYTES % 8.7 % (4.4-11.3); NEUTROPHILS % 71.7 % (38.7-80.0); PLATELET COUNT 179 x10e3/uL (140-360); RED BLOOD COUNT 3.03 x10e6/uL (3.6-5.1); RED CELL DISTRIBUTION WIDTH 14.9 % (11.7-14.4)
[2019-01-04 06:07] LABS: ALBUMIN 2.7 g/dL (3.5-5.0); ANION GAP 10.7 mmol/L (8-16); CALCIUM 8.6 mg/dL (8.4-10.2); CREATININE, SERUM 1.01 mg/dL (0.57-1.11); POTASSIUM 3.7 mmol/L (3.5-5.1)
--- NOTE | 2019-01-04 06:20 | NUR ---
Patient asked if diaper is wet or wants it changed, she states " I know when i am wet, and will let you know". patient is still on 2l nasal canula.
[2019-01-04 06:27] LABS: THYROID STIMULATING HORMONE 0.354 uIU/mL (0.350-4.940)
[2019-01-04 06:58] LABS: CHOL/HDL RATIO 4.9 (3.0-3.6)
--- NOTE | 2019-01-04 07:03 | NUR ---
patient endorsed to next shift for continuity of care.
[2019-01-04] MEDS: ASPIRIN 81 MG ENTERIC COATED PO SCH (09:52)
[2019-01-04] MEDS: CLOPIDOGREL BISULFATE 75 MG TAB PO SCH (09:52)
[2019-01-04] MEDS: FAMOTIDINE 20 MG TAB PO SCH ×2 (09:54→16:26)
[2019-01-04] MEDS: LOSARTAN POTASSIUM 100 MG TAB PO SCH (09:59)
--- NOTE | 2019-01-04 16:00 | NUR ---
SOCIAL WORK INITIAL ASSESSMENT Dentures Lab Technician to bedside to discuss plan of care with patient/family. CM/SW role and care transitions discussed. Anticipated discharge plan discussed along with duration of care. CM/SW discussed patients right to make decisions in care. CM/SW work hours given. Patient lives: IN APARTMENT BY SELF Admit/Transfer: VIA ED POA/Emergency contact: FRIEND AND NEIGHBOR JUAN [phone] Current/Previous Home Health: APS HAS SET UP PROVIDER, WHICH SHE WONT LET IN HOME PCP/Follow-up Care: OSMIN Current/Previous DME: HAS A WALKER REQUESTING A WHEELCHAIR Other Services: [employer] [employer] IS ASSISTING HER WITH RENT FOR OCTOBER AND NOVEMBER PLUS ALL MEDICATIONS AND FOOD. PT WILL NEED TO ASSUME RESPONSIBILITIES FINANCIALLY IN DECEMBER, SHE IS REQUESTIG A WHEELCHAIR AND A RAMP TO BE PUT IN FRONT OF HER APARTMENT. SHE STATES SON JUST . SHE STATES AIDAN THE PROVIDER IS TOO AGGRESSIVE AND DOESN'T LIKE HER. SPOKE WITH JAVAN DOBSON [phone] WITH OFFICE NUMBER OF [phone] WHOM STATES HE WILL FOLLOW UP WITH PT AFTER DISCHARGE TOMORROW AND SHE IS ON SERVICE WITH THEM. Employment Status: RETIRED Areas of Concerns: NOT HAPPY WITH HER PROVIDER AND DOES NOT WANT APS IN HER HOME, SMOKES 4 PACKS OF CIGARETTES A DAY Referral Needs: WILL ATTEMPT TO GET AUTH FOR A WHEELCHAIR IF CAN GET AN ORDER TO BE DELIVERED TO HER HOME, IF NOT THEN SHE WILL HAVE TO FOLLOW UP WITH HER PCP Education Needs: NONE IMM/GAN given and signed (if applicable): UPON ADMISSION Goal for discharge: RETURN TO HER APARTMENT CM/SW left business card at the bedside with contact information. Name and number was also written on the patients whiteboard. Patient verbalized understanding of discussion. CM will follow-up with ongoing discharge and transition of care needs.
--- NOTE | 2019-01-04 16:00 | NUR ---
SPOKE WITH JAVAN DOBSON [phone] WITH OFFICE NUMBER OF [phone] WHOM STATES WHEN IT IS TIME FOR THE DISCHARGE HE WILL FOLLOW UP WITH PT AFTER DISCHARGE AND SHE IS ON SERVICE WITH THEM.
[2019-01-04] MEDS: RISPERIDONE 0.5 MG TAB PO PRN (16:26)
[2019-01-04] MEDS ORDERED: OLANZAPINE 5 MG TAB PO PRN (16:45)
[2019-01-04] MEDS: BUPROPION HCL 75 MG TAB PO SCH (18:18)
[2019-01-04 18:25] LABS: HEMATOCRIT 32.6 % (34.2-44.1); HEMOGLOBIN 10.6 g/dL (12.0-16.0)
--- NOTE | 2019-01-04 19:36 | NUR ---
bedside reports given, patient seems aggressive verbally, no distress noted, vitals on normal level, will continue to monitor.
[2019-01-04] MEDS: LORAZEPAM 0.5 MG TAB PO PRN (21:12)
[2019-01-04] MEDS: ATORVASTATIN 20 MG TAB PO SCH (21:12)
--- NOTE | 2019-01-04 21:13 | NUR ---
patient took her scheduled lipitor per oral and also asked for something to help her sleep. she agreed to take ativan.
[2019-01-05] VITALS (9 sets, daily range): BP systolic 108–146; BP diastolic 66–90
--- NOTE | 2019-01-05 00:19 | Consultation ---
DATE OF CONSULTATION: 01/04/2019 Psychiatric Consultation REASON FOR CONSULTATION: To evaluate the patient's psychosis and mood. HISTORY OF PRESENT ILLNESS: The patient is a 73-year-old female admitted to the hospital for chest pain. Psychiatric consultation is called to evaluate the patient's mood and psychosis. As per the medical record, the patient presented to ER for vague symptom. She has history of COPD and congestive heart failure. Upon evaluation today, the patient is found to be in the room. She is irritable. She is agitated. Verbally, she is suspicious and paranoia. She accuses staff of lying to her. The patient is circumstantial in her thought process, does not answering questions directly, she is verbally combative. She claims that she is very agitated due to treatment that she is getting. However, she is unable to elaborate meaningfully. She denies any suicidal ideation. She denies any hallucination. She denies any problem with sleep or appetite. She denies any side effects of the medication at this time. PAST PSYCHIATRIC HISTORY: The patient has history of psychosis and dementia. She denies past suicide attempts. She denies alcohol or drug use. FAMILY HISTORY: The patient denies. SOCIAL HISTORY: The patient states she lives alone. She lives by herself. MENTAL STATUS EXAM: The patient is an elderly female. She is alert, awake, and oriented to self and place and situation. Her mood is irritable and anxious and . Affect is congruent with mood. Psychomotor status is agitated. She denies any suicidal or homicidal ideation. She denies any hallucination. Thought process is circumstantial. She is somewhat paranoid and suspicious. Insight and judgment are limited. Memory appears to be grossly impaired. CURRENT MEDICATION: 1. Famotidine. 2. Pep. 3. Cozaar. 4. Aspirin. 5. Plavix. 6. Lipitor. CURRENT LABS: WBC 7.02, RBC , hemoglobin 9.8, hematocrit 30.7, and platelets 179. Sodium 129, potassium 3.7, chloride 102, CO2 of 20, BUN 22, creatinine I.02, AST 27, and ALT 13. ASSESSMENT: 1. Unspecified psychosis. 2. Unspecified dementia with behavior disturbances. 3. Rule out personality disorder. PLAN: 1. To add Wellbutrin 75 mg p.o. b.i.d. 2. Ativan 0.5 mg p.o. q.6 hours p.r.n. 3. Zyprexa 2.5 mg p.o. q.6 hours p.r.n. 4. Monitor for mood and psychosis. 5. Discontinue Risperdal, p.r.n. p.o. 6. Monitor for agitation. 7. Discussed with nursing staff. Thank you for this consultation. Dictated by Malena Mcnally PA-C MD LO SteinbergV/MODL /[id number]
[2019-01-05] MEDS: HYDROCODONE/APAP 7.5MG-325MG 1 EA TAB PO PRN ×3 (04:40→18:58)
[2019-01-05] MEDS: FAMOTIDINE 20 MG TAB PO SCH ×2 (08:06→16:30)
[2019-01-05] MEDS: BUPROPION HCL 75 MG TAB PO SCH ×2 (09:33→16:30)
[2019-01-05] MEDS: CLOPIDOGREL BISULFATE 75 MG TAB PO SCH (09:33)
[2019-01-05] MEDS: LOSARTAN POTASSIUM 100 MG TAB PO SCH (09:33)
[2019-01-05] MEDS: ASPIRIN 81 MG ENTERIC COATED PO SCH (09:33)
[2019-01-05] MEDS: FUROSEMIDE 40 MG TAB PO SCH (10:56)
--- NOTE | 2019-01-05 17:45 | NUR ---
Asked Dr. Carver if patient could be transferred to [facility] floor with Telemetry and continuous pulse ox. Per Dr. Prakash carlisle if IMCU bed is needed then you may transfer patient if no let her stay in IMCU she will be discharged tomorrow.
[2019-01-05] MEDS: CYANOCOBALAMIN 1,000 MCG TAB PO SCH (18:00)
[2019-01-05] MEDS: LORAZEPAM 0.5 MG TAB PO PRN (20:31)
[2019-01-05] MEDS: ATORVASTATIN 20 MG TAB PO SCH (20:31)
--- NOTE | 2019-01-05 21:33 | NUR ---
PATIENT RECEIVED FROM [facility] PER BED AT 2054. SHE'S ALERT AND ORIENTED TO SELF AND PLACE, NO RESPIRATORY DISTRESS OBSERVED. LARGE BRUISE OBSERVED TO THE RIGHT INNER THIGH AND ANOTHER MODERATE BRUISE OBSERVED TO THE LEFT FOOT. NO EDEMA NOTED TO THE EXTREMITIES, REDNESS TO THE BACK AND PATIENT DENIES CHEST PAIN. IV HEPLOCK INTACT TO THE RIGHT AC, BED ALARM ON, CALL LIGHT WITHIN EASY REACH, WARM BLANKET PROVIDED FOR COMFORT.
[2019-01-06] VITALS: BP 106/58
--- NOTE | 2019-01-06 02:21 | NUR ---
PATIENT WOKE UP YELLING HELP ME! WAS CONFUSED UPON ASSESSMENT, DOES NOT KNOW WHERE SHE IS AT. WAS INCONTINENT OF URINE, KEPT DRY AND CLEAN. PATIENT BROUGHT TO NURSES STATION VIA WHEELCHAIR FOR CLOSE OBSERVATION, PORTABLE OXYGEN IN TOW. CONTINUING TO MONITOR.
[2019-01-06] MEDS: LORAZEPAM 0.5 MG TAB PO PRN (02:41)
[2019-01-06] MEDS: HYDROCODONE/APAP 7.5MG-325MG 1 EA TAB PO PRN ×2 (02:42→10:10)
--- NOTE | 2019-01-06 02:43 | NUR ---
PATIENT STARTED CRYING WHEN ASKED HOW MANY CHILDREN DO YOU HAVE. SHE C/O SEVERE PAIN TO THE ABDOMEN. MEDICATED WITH ATIVAN AND NORCO ORDERED. SHE'S SITTING AT THE NURSES STATION FOR CLOSE OBSERVATION, SHE WILL BE ASSISTED TO BED WHEN SHE FEELS LIKE GOING BACK TO BED.
--- NOTE | 2019-01-06 03:31 | NUR ---
PATIENT DOING MUCH BETTER. WAS GIVEN NORCO FOR PAIN AND ATIVAN FOR ANXIETY, RETURNED TO BED WITH WARM BLANKETS. PATIENT SHOWING NO SIGNS OF DISTRESS, PRESENTS LESS CONFUSION AND RELAXED. WATCHING TELEVISION IN BED, CALL LIGHT WITHIN REACH WILL THOROUGHLY MONITOR.
--- NOTE | 2019-01-06 07:20 | NUR ---
RECEIVED PATIENT ASLEEP RESTING IN BED NO SIGNS OF DISTRESS. BED LOW, WHEELS LOCKED, CALL LIGHT IN REACH. WILL CONTINUE TO MONITOR PATIENT.
[2019-01-06 07:53] VITALS: BP 127/83
[2019-01-06] MEDS: FAMOTIDINE 20 MG TAB PO SCH (08:06)
[2019-01-06] MEDS: ASPIRIN 81 MG ENTERIC COATED PO SCH (08:06)
[2019-01-06] MEDS: LOSARTAN POTASSIUM 100 MG TAB PO SCH (08:06)
[2019-01-06] MEDS: CYANOCOBALAMIN 1,000 MCG TAB PO SCH (08:07)
[2019-01-06] MEDS: FUROSEMIDE 40 MG TAB PO SCH (08:07)
[2019-01-06] MEDS: BUPROPION HCL 75 MG TAB PO SCH (08:07)
[2019-01-06] MEDS: CLOPIDOGREL BISULFATE 75 MG TAB PO SCH (08:07)
--- NOTE | 2019-01-06 09:00 | NUR ---
PATIENT ALERT AND ORIENTED X2, NO SIGNS OF DISTRESS ON 3LNC. PATIENT IS INCONTINENT AND HAS DIAPER IN PLACE. BRUISE OVER LEFT FOOT AND BRUISING ON RIGHT INNER THIGH. RIGHT AC 20 GAUGE IV SL. NO COMPLAINTS OF CHEST PAIN AT THIS TIME. BED LOW, WHEELS LOCKED, SIDE RAILS X2, CALL LIGHT IN REACH. WILL CONTINUE TO MONITOR PATIENT.
[2019-01-06 09:17] VITALS: BP 127/83
--- NOTE | 2019-01-06 09:22 | NUR ---
CM TO BEDSIDE TO DISCUSS PLAN OF CARE WITH T. CM ROLE AND CARE TRANSITIONS DISCUSSED. ANTICIPATED DC PLAN DISCUSSED ALONG WITH DURATION OF CARE. CM DISCUSSED PT'S RIGHT TO MAKE DECISIONS IN CARE. CM WORK HOURS GIVEN DURING THIS INTERVIEW PT BECAME IRRITABLE, VERBALLY ABUSIVE AND INTOLERANT DURING CONVERSATION PT LIVES IN [place] BY SELF ADMITTED VIA ER POA FRIEND AND NEIGHBOR JUAN [phone] CURRENT HOME HEALTH: PT HAS PROVIDERS THRU APS BUT "DOESNT WANT THOSE PEOPLE IN HER HOME" CURRENT DME: WALKER AND WHEELCHAIR EMPLOYEMENT: RETIRED CONTINUES TO SMOKE APPROX 4 PACKS OF CIGARETTES PER DAY
[2019-01-06] MEDS ORDERED: B-121000 MCG PO (10:26)
[2019-01-06] MEDS ORDERED: LIPITOR20 MG PO (10:27)
[2019-01-06] MEDS ORDERED: FUROSEMIDE40 MG PO (10:30)
--- NOTE | 2019-01-06 10:55 | NUR ---
REMOVED PATIENTS IV. CATHETER TIP INTACT AND PRESSURE DRESSING APPLIED.
[2019-01-06 11:55] VITALS: BP 115/77
--- NOTE | 2019-01-06 14:00 | NUR ---
PATIENT DISCHARGED FROM FACILITY. PATIENT GATHERED ALL PERSONAL BELONGINGS, DISCHARGE INSTRUCTIONS, FOLLOW UP INFORMATION, AND PRESCRIPTIONS. LEFT UNIT IN WHEELCHAIR AND WENT HOME VIA TAXI. NO SIGNS OF DISTRESS WHEN LEAVING FACILITY.
== END 2019-01-06 14:00 | disposition home or self-care (01) | DRG 246 ==
LOC: ER 05:43 → ERHOLD 06:51 → OBSVTOIN 07:13 → IMCU 07:51 → MED/SURG 01-05 20:59
PROVIDERS: ADMIT Internal Medicine; ATTEND Internal Medicine
PROC: 4A023N7 Measurement of Cardiac Sampling and Pressure, Left Heart, Percutaneous Approach (ICD-10-PCS; principal; 2019-01-03)
PROC: B215YZZ Fluoroscopy of Left Heart using Other Contrast (ICD-10-PCS; 2019-01-03)
PROC: 027034Z Dilation of Coronary Artery, One Artery with Drug-eluting Intraluminal Device, Percutaneous Approach (ICD-10-PCS; 2019-01-03)
PROC: B2151ZZ Fluoroscopy of Left Heart using Low Osmolar Contrast (ICD-10-PCS; 2019-01-03)
DX: I21.4 Non-ST elevation (NSTEMI) myocardial infarction (principal); I50.23 Acute on chronic systolic (congestive) heart failure; J44.9 Chronic obstructive pulmonary disease, unspecified; F29 Unspecified psychosis not due to a substance or known physiological condition; F03.90 Unspecified dementia, unspecified severity, without behavioral disturbance, psychotic disturbance, mood disturbance, and anxiety; I73.9 Peripheral vascular disease, unspecified; K29.70 Gastritis, unspecified, without bleeding; F39 Unspecified mood [affective] disorder; M47.896 Other spondylosis, lumbar region; I11.0 Hypertensive heart disease with heart failure; H91.90 Unspecified hearing loss, unspecified ear; R45.1 Restlessness and agitation
CPT/HCPCS: 36415; 71045; 80053; 80061; 81001; 82550; 82553; 82607; 82746; 83036; 84443; 84484; 85014; 85018; 85025; 85610; 87086; 87186; 92928; 93005; 93458; 99284; C1760; C1766; J0583; J1200; J1644; J1720; J2001; J2250; J3010; J7030; Q9967

== ENCOUNTER 2019-01-11 11:03 | Emergency (ER) | payer MEDICARE, BC ==
[~2019-01-11] VITALS: Ht 170.2 cm; Wt 69.9 kg
[~2019-01-11 11:03] MED LIST changes: +B-121000 MCG PO; +FUROSEMIDE40 MG PO; +LIPITOR20 MG PO
--- OUTSIDE RECORDS SUMMARY | 2019-01-11 11:06 | XMS REPORT | Clinical Summary ---
Author Author ANTHONY [facility] Address Unknown Phone Unavailable Care Team Providers Care Copy Editor Name Role Phone Kyle Mora MD PCP [...] Diabetes mellitus 07/18/2017 CAD (coronary artery disease), [place] coronary artery (4 stents before 07/18/20172011) S/P [...] Not on file Results Not on fileafter 01/10/2018 Insurance Payer Benefit Subscriber ID Type Phone Address Plan / Group MEDICARE MEDICARE A xxxxxxxxxxx Medicare B Advance Directives For more information, please contact: [facility] [address] [place] [phone] Date Inactivated Comments Code Status Date Activated 07/21/2017 11:44 PM Full Code 07/18/2017 2:49 PM This code status was determined by: Patient 03/28/2013 1:55 PM All possible means of support, including: cardiac massage, mechanical ventilation, and defibrillation will be used to support life. Code ONE 03/25/2013 11:11 AM
[2019-01-11] MEDS ORDERED: ASPIRIN 81 MG CHEW TAB PO ONE (11:15)
[2019-01-11] MEDS ORDERED: ACETAMINOPHEN 325 MG TAB PO ONE (11:15)
[2019-01-11] MEDS ORDERED: NITROGLYCERIN 2% OINT 1 GM PKT TOP ONE (11:15)
[2019-01-11 11:46] LABS: BASOPHILS # (AUTO) 0.1 (0.0-0.1); BASOPHILS % 1.3 % (0.0-1.0); EOSINOPHILS # (AUTO) 0.4 (0.0-0.4); EOSINOPHILS % 6.2 % (0.0-6.0); HEMATOCRIT 32.7 % (34.2-44.1); HEMOGLOBIN 10.9 g/dL (12.0-16.0); LYMPHOCYTES # (AUTO) 1.5 (1.0-3.2); LYMPHOCYTES % 21.6 % (18.0-39.1); MEAN CORPUSCULAR HEMOGLOBIN 33.9 pg (28-32); MEAN CORPUSCULAR HGB CONC 33.3 g/dL (31-35); MEAN CORPUSCULAR VOLUME 101.6 fL (81-99); MONOCYTES # (AUTO) 0.8 (0.2-0.8); MONOCYTES % 11.1 % (4.4-11.3); NEUTROPHILS # (AUTO) 4.3 (2.1-6.9); NEUTROPHILS % 59.7 % (38.7-80.0); PLATELET COUNT 288 x10e3/uL (140-360); RED BLOOD COUNT 3.22 x10e6/uL (3.6-5.1); RED CELL DISTRIBUTION WIDTH 15.9 % (11.7-14.4)
--- NOTE | 2019-01-11 11:53 | NUR ---
Spoke to Kristen ortega [facility] and notified patient states she thinks she left her red notebook on ambulance. Awaiting call back at this time.
--- NOTE | 2019-01-11 12:03 | Diagnostic Imaging Report ---
Examination: Single AP view of the chest. COMPARISON: Chest radiograph 01/03/2019, CT scan of the chest without contrast 03/24/2018 INDICATION: Chest pain DISCUSSION: The lungs are well-inflated. Patchy retrocardiac airspace opacity with loss of the hemidiaphragmatic contour. Otherwise no new consolidation. No pneumothorax. Unchanged cardiomediastinal contour with aneurysmal aortic arch and descending thoracic aorta. Prominence of the right paratracheal region described on the comparison study is no longer evident. No acute osseous abnormality. IMPRESSION: Patchy retrocardiac opacity may reflect atelectasis, aspiration, or pneumonia in the appropriate clinical context. Stable cardiomediastinal contour with known thoracic aortic aneurysm. Signed by: Dr. Michael Rivas M.D. on 01/11/2019 11:59 AM
[2019-01-11 12:15] LABS: ALBUMIN 3.2 g/dL (3.5-5.0); ALBUMIN/GLOBULIN RATIO 0.8 (0.8-2.0); ANION GAP 14.6 mmol/L (8-16); CALCIUM 9.4 mg/dL (8.4-10.2); CREATININE, SERUM 1.01 mg/dL (0.57-1.11); POTASSIUM 4.6 mmol/L (3.5-5.1)
[2019-01-11 12:23] LABS: CREATINE KINASE MB 1.1 ng/mL (0-5.0)
--- NOTE | 2019-01-11 13:39 | NUR ---
Patient states chest pain is gone at this time. No distress noted at this time.
[2019-01-11 13:58] VITALS: BP 122/87
--- NOTE | 2019-01-11 14:05 | NUR ---
computer analyst supervisor notified of need for cab voucher.
== END 2019-01-11 14:10 | disposition home or self-care (01) ==
LOC: ER 11:03
DX: R07.89 Other chest pain (principal); I20.9 Angina pectoris, unspecified; J44.9 Chronic obstructive pulmonary disease, unspecified
CPT/HCPCS: 36415; 71045; 80053; 82550; 82553; 83690; 84484; 85025; 93005; 99284

== ENCOUNTER 2019-01-14 06:22 | Emergency (ER) | payer MEDICARE, BC ==
[~2019-01-14] VITALS: Ht 170.2 cm; Wt 69.9 kg
--- OUTSIDE RECORDS SUMMARY | 2019-01-14 06:25 | XMS REPORT | Clinical Summary ---
Author Author ANTHONY [facility] Address Unknown Phone Unavailable Care Team Providers Care Securities Adviser Name Role Phone Kyle Mora MD PCP [...] Diabetes mellitus 07/18/2017 CAD (coronary artery disease), [place] coronary artery (4 stents before 07/18/20172011) S/P [...] Not on file Results Not on fileafter 01/13/2018 Insurance Payer Benefit Subscriber ID Type Phone Address Plan / Group MEDICARE MEDICARE A xxxxxxxxxxx Medicare B Advance Directives For more information, please contact: [facility] [address] [place] [phone] Date Inactivated Comments Code Status Date Activated 07/21/2017 11:44 PM Full Code 07/18/2017 2:49 PM This code status was determined by: Patient 03/28/2013 1:55 PM All possible means of support, including: cardiac massage, mechanical ventilation, and defibrillation will be used to support life. Code ONE 03/25/2013 11:11 AM
== END 2019-01-14 08:15 | disposition short-term general hospital (02) ==
LOC: ER 06:22
DX: F41.9 Anxiety disorder, unspecified (principal)

== ENCOUNTER 2019-01-17 08:50 | Emergency (ER) | payer MEDICARE, BC ==
[~2019-01-17] VITALS: Ht 170.2 cm; Wt 69.9 kg
--- OUTSIDE RECORDS SUMMARY | 2019-01-17 08:52 | XMS REPORT | Clinical Summary ---
Author Author ANTHONY [facility] Address Unknown Phone Unavailable Care Team Providers Care Election Assistant Name Role Phone Kyle Mora MD PCP [...] Diabetes mellitus 07/18/2017 CAD (coronary artery disease), [place] coronary artery (4 stents before 07/18/20172011) S/P [...] Not on file Results Not on fileafter 01/16/2018 Insurance Payer Benefit Subscriber ID Type Phone Address Plan / Group MEDICARE MEDICARE A xxxxxxxxxxx Medicare B Advance Directives For more information, please contact: [facility] [address] [place] [phone] Date Inactivated Comments Code Status Date Activated 07/21/2017 11:44 PM Full Code 07/18/2017 2:49 PM This code status was determined by: Patient 03/28/2013 1:55 PM All possible means of support, including: cardiac massage, mechanical ventilation, and defibrillation will be used to support life. Code ONE 03/25/2013 11:11 AM
== END 2019-01-17 10:04 | disposition home or self-care (01) ==
LOC: ER 08:50
DX: R60.9 Edema, unspecified (principal); I50.22 Chronic systolic (congestive) heart failure
CPT/HCPCS: 99283